=== PATIENT | female | born 1960 | race African-American/Black ===

== ENCOUNTER 2018-04-03 12:46 | Inpatient (IN) | payer MEDICAID, OTHER ==
[2018-04-03] MEDS ORDERED: Iopamidol 370 76% 50 ML VIAL FS ONE (13:01)
[2018-04-03 15:12] LABS: Bilirubin Negative (Negative); Blood, Urine Large (Negative); Clarity CLOUDY (Clear); Glucose, Urine (Dipstick) Negative (Negative); Leukocyte Moderate (Negative); Nitrite Negative (Negative); Protein, Urine (Dipstick) 100 mg/dL (Neg-Trace); Specific Gravity, Urine 1.014 (1.002-1.036)
[2018-04-03 15:14] LABS: Bacteria/HPF None Seen HPF (None Seen); Hyaline Casts/LPF 0-3 HYALINE CAST LPF (0-3 Hyaline); Pathc Cast-AUWi Flag 0.72 (0-2.49); RBC/HPF 21-50 HPF (0-3); WBC/HPF 21-50 HPF (0-3)
[2018-04-03 15:20] LABS: ALT (SGPT) 12 U/L (8-55); AST (SGOT) 43 U/L (5-34); Albumin 3.8 g/dL (3.5-5.0); Alkaline Phosphatase 88 U/L (40-150); Anion Gap 22 mmol/L (10-20); BUN (Urea Nitrogen) 31 mg/dL (9.8-20.1); Bilirubin, Total 1.4 mg/dL (0.2-1.2); Calc. Creatinine Clearance 0 mL/min (70-130); Calcium 11.6 mg/dL (7.8-10.44); Carbon Dioxide 22 mmol/L (22-29); Chloride 95 mmol/L (98-107); Estimated GFR-MDRD 46; Globulin 4.5 g/dL (2.4-3.5); Glucose 111 mg/dL (70-105); Potassium 5.2 mmol/L (3.5-5.1); Protein, Total 8.3 g/dL (6.0-8.3); Sodium 134 mmol/L (136-145)
[2018-04-03 15:25] LABS: Troponin I Less than 0.010 ng/mL (< 0.028)
[2018-04-03 15:40] LABS: Anisocytosis SLIGHT = 6-15 cells (100X) (0-5/hpf); Band 4 % (5-11); Eosinophils 1 % (0-10); Hemoglobin 10.9 g/dL (12.0-16.0); Lymphocytes 52 % (21-51); MDiff Complete? YES; Mean Corpuscular HGB CONC 35.6 g/dL (32.0-36.0); Mean Corpuscular Hemoglobin 28.9 pg (27.0-31.0); Mean Corpuscular Volume 81.1 fL (78.0-98.0); Mean Platelet Volume 14.7 fL (7.4-10.4); Monocytes 15 % (0-10); Neutrophil 21 % (42-75); PLT Morphology Comment Appears Decreased; Platelet Count 4 thou/uL (130-400); RBC Distribution Width 18.2 % (11.5-14.5); Reactive Lymphocytes 7 % (0-10); Red Blood Cell (RBC) Count 3.76 mill/uL (4.20-5.40); White Blood Cell (WBC) Count 18.7 thou/uL (4.8-10.8)
--- NOTE | 2018-04-03 17:13 | RAD ---
PORTABLE CHEST ONE VIEW: Date: 04-03-18 Time: 4:28 p.m. History: Cough, Chest pain, difficulty breathing. FINDINGS: Heart size normal. The lungs are expanded without lobar consolidation, pneumothoraces or pleural effu sions. IMPRESSION: No radiographic evidence of acute cardiopulmonary process. POS: [facility]
[2018-04-03 18:11] LABS: Fibrinogen 600 mg/dL (253-463)
[2018-04-03 18:12] LABS: INR-International Normal Ratio 1.2; PTT 30.4 SEC (22.9-36.1); Prothrombin Time 15.4 SEC (12.0-14.7)
[2018-04-03 18:13] LABS: D-Dimer Test 3.14 *mcg/mL (0.27-0.43)
[2018-04-03 18:15] LABS: Platelet Count 6 thou/uL (130-400)
[2018-04-03 18:30] LABS: FSP-Qualitative Normal (Normal)
[2018-04-03] MEDS ORDERED: Vancomycin HCl 1.5 GM in Sodium Chloride 0.9% 250 ML 300 ML IVPB SCH (22:15)
--- NOTE | 2018-04-03 22:33 | CT ---
CT ABDOMEN AND PELVIS WITHOUT IV CONTRAST: INDICATIONS: History of colorectal cancer and rectovaginal fistula. The patient has a history of an end colostomy . The patient reports tiredness, weakness, and continued bleeding. COMPARISON: None. FINDINGS: There is severe emphysema. There are calcified granuloma in the left lower lobe. There is subsegmen richie volume loss within the right middle lobe and lingula. Unopacified liver, spleen, pancreas, and right adrenal gland are unremarkable appearing. There is an indeterminate, 1.6 cm nodule within the left adrenal gland. Unopacified kidneys are unremarkable. There are moderate calcifications involving the abdominal aorta. There is an end colostomy within the left lower quadrant of the abdomen. There is no evidence of bow el obstruction. There is mild amount of retained stool within the colon. The small bowel is of norm al caliber. There is a fluid and gas collection seen within the presacral space, measuring approximately 3.8 x 6 cm. The visualized bladder is unremarkable. There is a peripherally calcified fat density mass within th e left hemipelvis, in the region of the left adnexa, which may reflect a dermoid cyst or possibly an area of fat necrosis. There is diffuse osteopenia. There is scattered degenerative and osteoarthritic change. IMPRESSION: 1. Fluid and gas collection seen within the presacral space. Findings may reflect a chronic fluid a nd gas collection from the patient's prior surgery and therapy or abscess. Comparison with prior microcomputer support specialist ss-sectional imaging may be helpful. Intravenous contrast enhanced examination may be helpful for im proved characterization. 2. Left lower quadrant end colostomy without evidence of obstruction. 3. Mild amount of retained stool within the colon. 4. Emphysema. 5. Findings of prior granulomatous disease. 6. Left adrenal nodule, incompletely characterized. Comparison with prior CTs may be helpful to doc ument chronicity. Alternatively, a follow-up CT of the abdomen utilizing adrenal mass protocol may b e helpful. 7. Peripherally calcified fat density mass at the left aspect of the hemipelvis may reflect a dermoi d cyst or possibly an area of fat necrosis from prior surgery or therapy. POS: [facility]
[2018-04-04] MEDS: Sodium Chloride 0.9% 1,000 ML IV SCH ×3 (00:03→14:41)
[2018-04-04] MEDS: Cefepime 1 GM in Sodium Chloride 0.9% 100 ML IVPB SCH ×3 (00:05→21:04)
[2018-04-04] MEDS ORDERED: Vancomycin HCl 1.5 GM in Sodium Chloride 0.9% 250 ML 300 ML IVPB SCH (00:15)
[2018-04-04 00:42] VITALS: BMI 33.7
[2018-04-04 00:50] LABS: Lactic Acid 2.1 mmol/L (0.5-2.2)
[2018-04-04] MEDS ORDERED: Famotidine 20 MG TAB PO SCH (01:00)
[2018-04-04] MEDS: Acetaminophen 325 MG TAB PO PRN ×2 (02:17→10:11)
[2018-04-04 05:20] LABS: Anion Gap 18 mmol/L (10-20); BUN (Urea Nitrogen) 33 mg/dL (9.8-20.1); Calc. Creatinine Clearance 79 mL/min (70-130); Calcium 10.7 mg/dL (7.8-10.44); Carbon Dioxide 21 mmol/L (22-29); Chloride 100 mmol/L (98-107); Estimated GFR-MDRD 58; Glucose 81 mg/dL (70-105); Potassium 4.1 mmol/L (3.5-5.1); Sodium 135 mmol/L (136-145)
[2018-04-04 05:41] LABS: Band 24 % (5-11); Differential Comment Plasma-like Cell(s); Eosinophils 3 % (0-10); Hemoglobin 8.6 g/dL (12.0-16.0); Lymphocytes 23 % (21-51); MDiff Complete? YES; Mean Corpuscular HGB CONC 35.4 g/dL (32.0-36.0); Mean Corpuscular Hemoglobin 28.7 pg (27.0-31.0); Mean Corpuscular Volume 81.2 fL (78.0-98.0); Mean Platelet Volume 11.1 fL (7.4-10.4); Metamyelocyte 2 % (0-0); Monocytes 11 % (0-10); Myelocyte 3 % (0-0); Neutrophil 30 % (42-75); Nucleated RBC 2 % (0); PLT Morphology Comment Appears Decreased; Platelet Count 36 thou/uL (130-400); RBC Distribution Width 17.7 % (11.5-14.5); Reactive Lymphocytes 4 % (0-10); Red Blood Cell (RBC) Count 3.01 mill/uL (4.20-5.40); Target Cells SLIGHT = 2-5 cells (100X) (0-1/hpf)
[2018-04-04] MEDS ORDERED: HYDROcodone/Acetaminophen 10/325 mg Tablet PO PRN ×2 (06:12→14:37)
[2018-04-04] MEDS: Famotidine 20 MG TAB PO SCH ×2 (10:08→21:03)
--- NOTE | 2018-04-04 13:23 | PDOC.PN ---
- Subjective Encounter Start Date: 04/04/18 Encounter Start Time: 07:40 Pt seen for followup re: sepsis. Says she hurts all over. - Objective Resuscitation Status: Resuscitation Status FULL:Full Resuscitation MAR Reviewed: Yes Vital Signs & Weight: Vital Signs (12 hours) Temp Pulse Resp BP Pulse Ox 04/04/18 12:00 99.2 F 92 20 102/58 L 94 L 04/04/18 08:00 99 F 95 18 113/58 L 86 L 04/04/18 04:00 92 16 112/58 L Weight Weight 203 lb Result Diagrams: 04/04/18 03:58 04/04/18 03:58 EKG Reviewed by me: Yes (Tele: NSR) Phys Exam - Physical Examination Obese HEENT: moist MMs, sclera anicteric, oral pharynx no lesions, 2+ tonsils Neck: no nodes, no JVD, supple, full ROM Respiratory: no wheezing, no rales, no rhonchi, clear to auscultation bilateral Cardiovascular: RRR, no rub S1, s2 Gastrointestinal: soft, non-tender, positive bowel sounds ostomy Neurological: moves all 4 limbs Psychiatric: normal affect, A&O x 3 Dx/Plan (1) Sepsis Code(s): A41.9 - SEPSIS, UNSPECIFIED ORGANISM Status: Acute Comment: continue IV antibiotics as below, await cultures (2) Thrombocytopenia Code(s): D69.6 - THROMBOCYTOPENIA, UNSPECIFIED Status: Acute Comment: ? secondary to sepsis. Consult oncology for opinion and help with management. (3) DAISY (acute kidney injury) Code(s): N17.9 - ACUTE KIDNEY FAILURE, UNSPECIFIED Status: Acute Comment: likely prerenal, improving (4) HTN (hypertension) Code(s): I10 - ESSENTIAL (PRIMARY) HYPERTENSION Status: Chronic Comment: controlled (5) Colorectal cancer Code(s): C19 - MALIGNANT NEOPLASM OF RECTOSIGMOID JUNCTION Status: Chronic - Plan * . Review of Systems - Review of Systems Constitutional: weakness. negative: fever, chills, sweats, malaise Respiratory: negative: Cough, Shortness of Breath, SOB with Excertion, Pleuritic Pain, Wheezing Cardiovascular: negative: chest pain, palpitations, orthopnea, paroxysmal nocturnal dyspnea, edema, light headedness Gastrointestinal: negative: Nausea, Vomiting, Abdominal Pain, Diarrhea, Constipation, Melena, Hematochezia Genitourinary: negative: Dysuria, Frequency, Incontinence, Hematuria, Retention Musculoskeletal: negative: Neck Pain, Shoulder Pain, Arm Pain, Back Pain, Hand Pain, Leg Pain, Foot Pain - Medications/Allergies Allergies/Adverse Reactions: Allergies Allergy/AdvReac Type Severity Reaction Status Date / Time fentanyl Allergy Verified 04/03/18 22:00 Medications: Current Medications Acetaminophen (Tylenol) 650 mg PO Q4H PRN PRN Reason: Headache/Fever or Pain Last Admin: 04/04/18 10:11 Dose: 650 mg Hydrocodone Bitart/Acetaminophen ([place] 10/325) 1 tab PO BID PRN PRN Reason: Pain >3 Last Admin: 04/04/18 06:15 Dose: 1 tab Famotidine (Pepcid) 20 mg PO BID DANIEL Last Admin: 04/04/18 10:08 Dose: 20 mg Cefepime HCl 1 gm/ Sodium (Chloride) 100 mls @ 200 mls/hr IVPB 1000,2200 [facility] Last Admin: 04/04/18 10:00 Dose: 100 mls Sodium Chloride (Normal Saline 0.9%) 1,000 mls @ 100 mls/hr IV .Q10H [facility] Last Admin: 04/04/18 05:27 Dose: 1,000 mls Vancomycin HCl 1.5 gm/ Sodium (Chloride) 300 mls @ 200 mls/hr IVPB 2300 DANIEL Ondansetron HCl (Zofran) 4 mg IVP Q6H PRN PRN Reason: Nausea/Vomiting
--- NOTE | 2018-04-04 13:55 | HP ---
TIME OF EVALUATION: 8:00 p.m. PRIMARY CARE PHYSICIAN: No PCP. CODE STATUS: FULL CODE. CHIEF COMPLAINT: Generalized pain and vaginal bleeding. HISTORY OF PRESENT ILLNESS: A 58-year-old female patient with past medical history of hypertension, malignancy, colon cancer, history of colostomy, colon resection, colostomy problems, also having some rectovaginal fistula that has been bleeding for 2 years. Patient has reported having this pain has been going on for since February, has talked to his oncologist about this problem, has received pain medi cations, with no improvement. The patient reported having also significant bleeding in the past few days. CBC was done, the patient has a platelet count of 4000, it has been discussed by the ER physic bia with the oncologist and the plan is to give platelets. Patient also reported having fever, tachy cardia, and urine was positive, symptoms were reported as moderate. The pain was reported as severe. She will receive treatment also for UTI. REVIEW OF SYSTEMS: Constitutional: The patient had fever, chills, generalized weakness. Respirator y: No cough, sputum production, or shortness of breath. Cardiovascular: No chest pain, palpitation s, or shortness of breath. Gastrointestinal: No nausea, no vomiting, diarrhea, or abdominal pain. Central Nervous Systems: No dizziness, headache, or feeling lightheaded. Genitourinary: No burning on urination. Extremities: No leg swelling. All other systems were reviewed and negative except f or the findings mentioned above. PAST MEDICAL HISTORY: Positive for hypertension, colon cancer. PAST SURGICAL HISTORY: Colostomy, colon resection, surgical history of . PSYCHIATRIC HISTORY: Anxiety. SOCIAL HISTORY: Patient uses tobacco. She smokes cigarettes 1 pack per day. FAMILY HISTORY: Reviewed and noncontributory. KNOWN ALLERGIES: FENTANYL. REPORTED MEDICATIONS: Lisinopril 20 mg once a day. PHYSICAL EXAMINATION: VITAL SIGNS: Heart rate 111, O2 saturation 95 on room air, blood pressure 107/70, temperature 98.5. Pain was 10/10. GENERAL APPEARANCE: Patient is alert, oriented, in no any acute distress. HEAD AND EYES: Normal conjunctivae. Moist oral mucosa. Anicteric. NECK: No JVD. RESPIRATORY: Bilateral air entry. No rales, no wheezing. Symmetric expansion. CARDIOVASCULAR: Patient is tachycardic. No murmurs, no gallop. EXTREMITIES: No edema. ABDOMEN: Soft, normal bowel sounds. MUSCULOSKELETAL: Baseline range of motion and strength. No tenderness. The patient does have gener alized weakness. SKIN: Warm and dry. No pallor, no rash, no redness. NEUROLOGIC: Baseline sensorium. No evidence of any new focal weakness. Baseline speech. Cranial n erve seems to be intact. PSYCHIATRIC: The patient is in a good mood. No anxiety. Oriented. Optimal judgment. IMAGING: EKG was reviewed. The patient has sinus tachycardia with low voltage QRS, ventricular rate 103, TN 128, QRS 74, QT corrected 440. Abdominal pelvic CT, fluid and gas collection seen within th e presacral space, findings may reflect a chronic fluid and gas collection from the patient from surg martinez and therapy or abscess. Comparison with prior cross-sectional imaging may be helpful. Intraveno us contrast inhaled examination may be helpful for improved catheterization. Left lower quadrant and colostomy without evidence of obstruction, mild amount of retained stool within the colon, emphysema and finding of prior granulomatosis disease, left adrenal nodule incompletely characterized, compari son with prior CTs and be helpful to document chronicity. Alternatively, a followup CT of the abdome n utilizing adrenal mass protocol may be helpful. Peripherally, calcified fat density mass of the le ft aspect of the imipenem. This may reflect a dermoid cyst or possibly an area of fat necrosis from prior surgery. Chest x-ray was reviewed. No radiographic evidence of acute cardiopulmonary process. LABORATORY DATA: White count 18.7, RBC 3.76, hemoglobin 10.9, platelet count 6000, neutrophils 21, b ands 4. PT 15.4, INR 1.2. D-dimer 3.14, sodium 134, potassium 5.2, chloride 95, anion gap 22, BUN 3 1, creatinine 1.20, glucose 111. Lactic acid initially 2.4, now 2.1, calcium 11.6, total bilirubin 1 .4, AST 43, globulin 4.5. UA was reviewed, white count 21 to 50. ASSESSMENT AND PLAN: The patient was placed in the hospital following medical problems: 1. Possible sepsis. The patient has leukocytosis, tachycardia, possible source could be presacral a bscess versus urine. The patient has been started on broad spectrum antibiotics. Will adjust as pat ient has deep venous thrombosis, hydration. 2. Possible presacral abscess. We will consult Surgery for neuro opinion regarding any need for fur ther recommendations. 3. Urinary tract infection, positive UA, cultures, treatment as above. 4. Thrombocytopenia. Oncology is following this case with recommendation given to the ER to give pl atelet transfusion. We will monitor platelet level. We will treat accordingly. 5. Chronic normocytic anemia. The patient has a history of vaginal bleeding for the past 2 years. We will monitor. We will adjust treatment as needed. 6. Hyponatremia. Sodium 134, this is mild. No need for any acute intervention at this time. 7. Hyperkalemia, 5.2, this is minimal. No need for any acute intervention at this point. We will m onitor and treat accordingly. 8. Acute kidney injury. We will have the previous creatinine to compare, BUN is 31, creatinine is 1 .2, GFR is 46. We will hydrate. We will monitor kidney function. 9. Lactic acidosis initially 2.4 came down to 2.1, likely secondary to sepsis. We will treat the un derlying condition. 10. Deep vein thrombosis prophylaxis.
[2018-04-04] MEDS ORDERED: Morphine 4 MG/ML VIAL SLOW IVP PRN (14:37)
--- NOTE | 2018-04-04 14:39 | PDOC.GSPN ---
Surgery Progress Note: Subj - Subjective Narrative: Well known to me now presents with blood from vagina, increased perineal drainage and body aches. Platelets 4 on presentation. Denies blood in bag, hematuria. Surgery Progress Note: Obj - Vital signs Vital signs: Vital Signs - Most Recent Temp Pulse Resp BP Pulse Ox 99.2 F 92 20 102/58 L 94 L 04/04/18 12:00 04/04/18 12:00 04/04/18 12:00 04/04/18 12:00 04/04/18 12:00 - Physical Exam General: no distress Cardiovascular: regular rate and rhythm Respiratory: clear to auscultation Abdomen: soft, non tender Surgery Progress Note: Results - Labs Result Diagrams: 04/04/18 03:58 04/04/18 03:58 Lab results: Laboratory Results - last 24 hr 04/04/18 04/04/18 03:58 03:58 WBC 12.0 H RBC 3.01 L Hgb 8.6 L Hct 24.4 L MCV 81.2 MCH 28.7 MCHC 35.4 RDW 17.7 H Plt Count 36 L MPV 11.1 H Neutrophils % (Manual) 30 L Band Neuts % (Manual) 24 H Lymphocytes % (Manual) 23 Reactive Lymphs % 4 Monocytes % (Manual) 11 H Eosinophils % (Manual) 3 Metamyelocytes % (Man) 2 H Myelocytes % 3 H Neutrophils # Not Reportable Nucleated RBCs # (Man) 2 H Differential Comment Plasma-like Cell(s) Plt Morphology Comment Appears Decreased L Target Cells SLIGHT = 2-5 cells Sodium 135 L Potassium 4.1 Chloride 100 Carbon Dioxide 21 L Anion Gap 18 BUN 33 H Creatinine 1.16 H Estimated GFR (MDRD) 58 Glucose 81 Calcium 10.7 H Surgery Progress Note: A/P - Problem (1) Rectal cancer Current Visit: Yes Code(s): C20 - MALIGNANT NEOPLASM OF RECTUM Status: Acute Assessment and Plan: s/p neoadjuvant chemo/radiation followed by APR for locally invasive rectal cancer. Pathologic staging T3,N2,M0 (2) Thrombocytopenia Current Visit: Yes Code(s): D69.6 - THROMBOCYTOPENIA, UNSPECIFIED Status: Acute Assessment and Plan: Secondary to underlying infection? (3) Pelvic fluid collection Current Visit: Yes Code(s): R18.8 - OTHER ASCITES Status: Acute Assessment and Plan: Could be necrotic scar tissue and source of infection - Plan Plan: Will need percutaneous drainage attempted for this pelvic fluid collection. Not going to be able to do it until platelet count increased. Need oncology input on next step for increased CEA level
[2018-04-04] MEDS: HYDROcodone/Acetaminophen 10/325 mg Tablet PO PRN ×2 (15:57→21:02)
[2018-04-04] MEDS: Vancomycin HCl 1.5 GM in Sodium Chloride 0.9% 250 ML 300 ML IVPB SCH (22:22)
--- NOTE | 2018-04-04 22:29 | CON ---
DATE OF CONSULTATION: 04/04/2018 REASON FOR CONSULTATION: Thrombocytopenia. HISTORY OF PRESENT ILLNESS: Ms. Hernandez is a 58-year-old female with a past history of rectal carcinoma, status post neoadjuvant chemotherapy and radiation with resection who presented to the emergency room yesterday with vaginal bleeding. She had a platelet count of 4,000. She was transfused a unit of platelets with improvement in platelets to 36,000. The patient was diagnosed with a T3 N2 M0 adenocarcinoma of the rectum in 2014. 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 She underwent neoadjuvant chemotherapy with the radiation. She had an abdominal peritoneal resection in 12/2015. Final pathology revealed a 5.6 cm residual focus of invasive adenocarcinoma invading the subserosal adipose tissue. She had 7-14 pertinent positive lymph nodes for regional metastatic disease in 02/2016. She was offered a postoperative chemotherapy which she declined. She was lost to follow up and was not seen again until 10/2017. She was referred to Dr. Arguelles for colonoscopy. She had a CEA performed in October which was elevated at 25.65. Dr. Weir contacted the patient by telephone, but was unable to get a hold of the patient. Multiple messages were left on voicemail regarding her elevated CEA. She has not returned to our clinic since October. On admission, she had an abdominal and pelvis CT without contrast. There was a fluid and gas collection seen in the presacral space, measuring approximately 3.8 x 6 cm. Her CBC this morning showed a white count of 12.0, hemoglobin of 8.6 and a platelet count of 36,000 post-transfusion. She had 30% neutrophils, 24% bands, 23% lymphocytes. She also had metamyelocytes, myelocytes and nucleated RBCs on her differential as well as plasma like cells worrisome for a bone marrow dysfunction. Currently, she is complaining of generalized pain. She was recently medicated with morphine, which has not taken in fact. She states she has felt poorly over the last 2 weeks and has lost approximately 5 pounds during that time. PAST MEDICAL HISTORY: 1. Adenocarcinoma of the rectum. 2. 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 3. Hypertension. PAST SURGICAL HISTORY: 1. AP resection with colostomy. 2. . ALLERGIES: FENTANYL. HOME MEDICATIONS: 1. Chlorthalidone 12.5 mg daily. 2. Helen p.r.n. 3. Lisinopril 20 mg daily. FAMILY HISTORY: Mother of lung cancer. SOCIAL HISTORY: She is , has 3 children, lives with her brother. Current everyday smoker. No illicit drug use or alcohol. REVIEW OF SYSTEMS: A 12 point review of systems is negative except for noted in HPI. PHYSICAL EXAMINATION: VITAL SIGNS: Temperature 99.2, pulse is 92, respiratory rate 20, BP is 102/58, she is 94% on 3 liters. GENERAL: This is a well-developed, well-nourished female in mild pain. HEENT: Normocephalic, atraumatic. Pupils are equal and reactive to light. NECK: Supple. CARDIOVASCULAR: Regular rate and rhythm. LUNGS: Clear. ABDOMEN: Soft, mildly tender to palpation in the lower quadrants. Bowel sounds are positive. EXTREMITIES: No clubbing, cyanosis or edema. SKIN: No rash. HEMATOLOGIC: She has vaginal bleeding. NEUROLOGIC: Nonfocal. PSYCHIATRIC: Patient is alert and oriented and appropriate. PERTINENT LABORATORY DATA AND IMAGING DATA: Current WBCs are 12, hemoglobin 8.6 , hematocrit 24.4, platelet count 36,000, 30% neutrophils, 24% bands, 23% lymphocytes, 11% monocytes. She has got 3% metamyelocytes, 3% myelocytes, 2 nucleated red blood cells and plasma like cells. PT is 15.4, INR is 1.2, PTT is 30.4. Sodium is 135, potassium 4.1, chloride 100, CO2 is 21, BUN is 33, creatinine 1.16, lactic acid is 2.1, calcium 10.7, total bilirubin is 1.4, AST is 43, ALT is 12, alkaline phosphatase is 88, serum total protein is 8.3, albumin 3.8, globulin 4.5, CEA is 27.03. Urine is negative for bacteria. Radiology per HPI. ASSESSMENT: 1. Acute thrombocytopenia. 2. Pelvic fluid collection infection versus malignancy. 3. History of rectal cancer. 4. Acute on chronic kidney disease. 5. Abnormal differential on his CBC. DISCUSSION: The patient's thrombocytopenia and abnormal cells on differential were concerning for bone marrow process. Discussion with Dr. Weir. Plan is to have a bone marrow biopsy tomorrow. We will also get a serum protein electrophoresis and immunoglobulins. Dr. Contreras has seen the patient and plans a pelvic fluid drainage once platelets have normalized. The patient is being administered pain medication for her discomfort and antibiotics for possible infection. We will continue to follow her hospital course closely and further recommendations will be based on results of current treatments. TREY
[2018-04-05] MEDS: HYDROcodone/Acetaminophen 10/325 mg Tablet PO PRN ×4 (04:55→21:32)
[2018-04-05] MEDS: Sodium Chloride 0.9% 1,000 ML IV SCH ×2 (04:59→16:59)
[2018-04-05 05:36] LABS: INR-International Normal Ratio 1.2; Prothrombin Time 15.6 SEC (12.0-14.7)
[2018-04-05 05:37] LABS: PTT 31.5 SEC (22.9-36.1)
[2018-04-05 08:00] LABS: Hemoglobin 8.7 g/dL (12.0-16.0); Mean Corpuscular HGB CONC 35.2 g/dL (32.0-36.0); Mean Corpuscular Hemoglobin 28.9 pg (27.0-31.0); Mean Corpuscular Volume 82.2 fL (78.0-98.0); Mean Platelet Volume 12.3 fL (7.4-10.4); Platelet Count 22 thou/uL (130-400); RBC Distribution Width 18.4 % (11.5-14.5); Red Blood Cell (RBC) Count 3.01 mill/uL (4.20-5.40); White Blood Cell (WBC) Count 12.3 thou/uL (4.8-10.8)
[2018-04-05 08:37] LABS: Anion Gap 16 mmol/L (10-20); BUN (Urea Nitrogen) 26 mg/dL (9.8-20.1); Calc. Creatinine Clearance 110 mL/min (70-130); Calcium 10.1 mg/dL (7.8-10.44); Carbon Dioxide 22 mmol/L (22-29); Chloride 104 mmol/L (98-107); Estimated GFR-MDRD 78; Glucose 72 mg/dL (70-105); Potassium 4.6 mmol/L (3.5-5.1); Sodium 137 mmol/L (136-145)
[2018-04-05 08:47] LABS: Band 24 % (5-11); Bite Cells SLIGHT = 2-5 cells (100X) (0-1/hpf); Differential Comment Plasma-cytoid Cells; Lymphocytes 29 % (21-51); MDiff Complete? YES; Monocytes 10 % (0-10); Myelocyte 2 % (0-0); Neutrophil 20 % (42-75); Polychromasia SLIGHT = 2-3 cells (100X) (0-2/hpf); Reflex for Review?? YES; Target Cells SLIGHT = 2-5 cells (100X) (0-1/hpf)
[2018-04-05] MEDS: Famotidine 20 MG TAB PO SCH ×2 (09:02→20:38)
[2018-04-05] MEDS: Cefepime 1 GM in Sodium Chloride 0.9% 100 ML IVPB SCH ×2 (09:05→21:34)
[2018-04-05] MEDS ORDERED: Fentanyl 100 MCG/2 ML VIAL ONE (09:16)
[2018-04-05] MEDS ORDERED: Midazolam HCl 2 mg/2 ml Vial ONE (09:16)
--- NOTE | 2018-04-05 12:36 | RAD ---
ADULT BONE SURVEY: INDICATIONS: Question multiple myeloma. TECHNIQUE: A total of 23 images were obtained. FINDINGS: Images of the cervical, thoracic, and lumbar spine obtained. The vertebrae all maintain normal heigh t and alignment. No evidence of compression deformity. No lytic or blastic process. No punched out or lytic lesions seen. Views of the calvarium show no punched out or lytic lesion. The patient is edentulous. AP pelvis shows no focal lytic or punched out lesion. The hips are unremarkable. The lower extremities show no focal lucent or lytic lesions. The upper extremities show no evidence of focal lucent or lytic lesions. IMPRESSION: No plain film evidence of multiple myeloma identified. POS: [facility]
--- NOTE | 2018-04-05 13:58 | CT ---
CT GUIDED BONE MARROW BIOPSY: Date: 04/05/18 HISTORY: Thrombocytopenia. CONSCIOUS SEDATION: 1 mg Versed, IV. FINDINGS: After explaining the procedure and answering all questions, the patient was placed on the CT table in prone position. Sterile technique, buffered local anesthesia, conscious sedation, CT guidance, and a left posterior approach were used to carefully advance a 12 gauge bone biopsy needle to the level of the posterior cortex left iliac bone. Position was confirmed with CT. Biopsy needle was carefully en gaged through the cortex, and a total volume of 8 mL blood was aspirated and submitted to pathology f or evaluation. Bone marrow core was then obtained and submitted to pathology. Postprocedure imaging shows no evidenc e of complication. The patient tolerated the procedure well and was returned in unchanged condition. IMPRESSION: Technically successful CT guided bone marrow biopsy. Pathology is pending. POS: [facility]
--- NOTE | 2018-04-05 13:59 | PDOC.PN ---
- Subjective Encounter Start Date: 04/05/18 Encounter Start Time: 08:00 Pt seen for followup re: thrombocytopenia. Complains of pain all over body. No nausea or vomiting. - Objective Resuscitation Status: Resuscitation Status FULL:Full Resuscitation MAR Reviewed: Yes Vital Signs & Weight: Vital Signs (12 hours) Temp Pulse Resp BP BP Pulse Ox 04/05/18 12:00 98.6 F 110 H 18 129/86 89 L 04/05/18 08:00 98.1 F 91 20 109/58 L 91 L 04/05/18 04:00 98.9 F 103 H 18 128/59 L 99 Weight Weight 220 lb I&O: 04/04/18 04/05/18 04/06/18 06:59 06:59 06:59 Intake Total 3784 Balance 3784 Result Diagrams: 04/05/18 05:37 04/05/18 05:37 EKG Reviewed by me: Yes (Tele: NSR) Phys Exam - Physical Examination Obesity HEENT: moist MMs, sclera anicteric, oral pharynx no lesions, 2+ tonsils Neck: no nodes, no JVD, supple, full ROM Respiratory: no wheezing, no rales, no rhonchi, clear to auscultation bilateral Cardiovascular: RRR, no rub S1, S2 Gastrointestinal: soft, non-tender, no distention, positive bowel sounds Neurological: moves all 4 limbs Psychiatric: normal affect Dx/Plan (1) Sepsis Code(s): A41.9 - SEPSIS, UNSPECIFIED ORGANISM Status: Acute Comment: continue IV cefepime and vancomycin, await cultures (2) Thrombocytopenia Code(s): D69.6 - THROMBOCYTOPENIA, UNSPECIFIED Status: Acute Comment: ? secondary to sepsis. Plt 22k today (3) Pelvic fluid collection Code(s): R18.8 - OTHER ASCITES Status: Acute Comment: appreciate surgery input, continue antibiotics (4) HTN (hypertension) Code(s): I10 - ESSENTIAL (PRIMARY) HYPERTENSION Status: Chronic Comment: controlled, resume home medications (5) Colorectal cancer Code(s): C19 - MALIGNANT NEOPLASM OF RECTOSIGMOID JUNCTION Status: Chronic (6) DAISY (acute kidney injury) Code(s): N17.9 - ACUTE KIDNEY FAILURE, UNSPECIFIED Status: Resolved - Plan * . Lab called to report plasmacytoid cells in peripheral smear, no rouleaux formation. Await bone marrow biopsy. Review of Systems - Review of Systems Respiratory: negative: Cough, Shortness of Breath, Hemoptysis, SOB with Excertion, Pleuritic Pain, Wheezing Cardiovascular: negative: chest pain, palpitations, orthopnea, paroxysmal nocturnal dyspnea, edema, light headedness Gastrointestinal: negative: Nausea, Vomiting, Abdominal Pain, Diarrhea, Constipation, Melena, Hematochezia Genitourinary: negative: Dysuria, Frequency, Incontinence, Hematuria, Retention Musculoskeletal: negative: Neck Pain, Shoulder Pain, Arm Pain, Back Pain, Hand Pain, Leg Pain, Foot Pain - Medications/Allergies Allergies/Adverse Reactions: Allergies Allergy/AdvReac Type Severity Reaction Status Date / Time fentanyl Allergy Verified 04/03/18 22:00 Medications: Current Medications Acetaminophen (Tylenol) 650 mg PO Q4H PRN PRN Reason: Headache/Fever or Pain Last Admin: 04/04/18 10:11 Dose: 650 mg Hydrocodone Bitart/Acetaminophen ([place] 10/325) 1 tab PO Q4H PRN PRN Reason: Moderate Pain (4-6) Hydrocodone Bitart/Acetaminophen ([place] 10/325) 2 tab PO Q4H PRN PRN Reason: Severe Pain (7-10) Last Admin: 04/05/18 12:28 Dose: 2 tab Calcium Carbonate (Tums) 1,000 mg PO Q4H PRN PRN Reason: HEARTBURN Famotidine (Pepcid) 20 mg PO BID [facility] Last Admin: 04/05/18 09:02 Dose: Not Given Cefepime HCl 1 gm/ Sodium (Chloride) 100 mls @ 200 mls/hr IVPB 1000,2200 [facility] Last Admin: 04/05/18 09:05 Dose: 100 mls Sodium Chloride (Normal Saline 0.9%) 1,000 mls @ 100 mls/hr IV .Q10H [facility] Last Admin: 04/05/18 04:59 Dose: 1,000 mls Vancomycin HCl 1.5 gm/ Sodium (Chloride) 300 mls @ 200 mls/hr IVPB 2300 [facility] Last Admin: 04/04/18 22:22 Dose: 300 mls Morphine Sulfate (Morphine) 2 mg SLOW IVP Q4H PRN PRN Reason: Mild-Moderate Pain (1-5) Last Admin: 04/04/18 14:42 Dose: 2 mg Morphine Sulfate (Morphine) 4 mg SLOW IVP Q4H PRN PRN Reason: Moderate to Severe Pain (6-10) Ondansetron HCl (Zofran) 4 mg IVP Q6H PRN PRN Reason: Nausea/Vomiting Sodium Chloride (Flush - Normal Saline) 10 ml IVF Q12HR [facility] Last Admin: 04/05/18 09:03 Dose: 10 ml Sodium Chloride (Flush - Normal Saline) 10 ml IVF PRN PRN PRN Reason: Saline Flush
[2018-04-05] MEDS: Vancomycin HCl 1.5 GM in Sodium Chloride 0.9% 250 ML 300 ML IVPB SCH (23:50)
[2018-04-06] MEDS: HYDROcodone/Acetaminophen 10/325 mg Tablet PO PRN ×5 (02:25→23:45)
[2018-04-06 05:38] LABS: Hemoglobin 7.7 g/dL (12.0-16.0); Mean Corpuscular HGB CONC 35.1 g/dL (32.0-36.0); Mean Corpuscular Hemoglobin 28.4 pg (27.0-31.0); Mean Corpuscular Volume 81.1 fL (78.0-98.0); Mean Platelet Volume 13.5 fL (7.4-10.4); Platelet Count 13 thou/uL (130-400); White Blood Cell (WBC) Count 9.3 thou/uL (4.8-10.8)
[2018-04-06 05:43] LABS: Anion Gap 16 mmol/L (10-20); BUN (Urea Nitrogen) 21 mg/dL (9.8-20.1); Calc. Creatinine Clearance 116 mL/min (70-130); Calcium 9.7 mg/dL (7.8-10.44); Carbon Dioxide 22 mmol/L (22-29); Chloride 103 mmol/L (98-107); Estimated GFR-MDRD 84; Glucose 81 mg/dL (70-105); Potassium 4.2 mmol/L (3.5-5.1); Sodium 137 mmol/L (136-145)
[2018-04-06 06:45] LABS: Band 13 % (5-11); Eosinophils 1 % (0-10); Lymphocytes 37 % (21-51); MDiff Complete? YES; Metamyelocyte 4 % (0-0); Monocytes 8 % (0-10); Myelocyte 3 % (0-0); Neutrophil 32 % (42-75); PLT Morphology Comment Appears Decreased
[2018-04-06] MEDS: Sodium Chloride 0.9% 1,000 ML IV SCH (08:45)
[2018-04-06] MEDS: Ondansetron HCl/PF 4 MG/2 ML Vial IVP PRN ×2 (08:46→21:38)
[2018-04-06] MEDS: Famotidine 20 MG TAB PO SCH ×2 (08:49→21:33)
[2018-04-06 09:22] LABS: A/G Ratio 0.8 (0.7-1.7); Albumin 3.2 g/dL (2.9-4.4); Alpha 1 0.5 g/dL (0.0-0.4); Alpha 2 0.9 g/dL (0.4-1.0); Beta 2.1 g/dL (0.7-1.3); Gamma 0.9 g/dL (0.4-1.8); Globulin, Total 4.2 g/dL (2.2-3.9); M-Spike 0.5 g/dL (Not Observed)
[2018-04-06] MEDS: Cefepime 1 GM in Sodium Chloride 0.9% 100 ML IVPB SCH ×2 (09:28→21:35)
[2018-04-06] MEDS: Vancomycin HCl 1.5 GM in Sodium Chloride 0.9% 250 ML 300 ML IVPB SCH ×2 (10:33→23:15)
--- NOTE | 2018-04-06 18:54 | PDOC.PN ---
- Subjective Encounter Start Date: 04/06/18 Encounter Start Time: 08:00 Pt seen for followup re: sepsis. Denies chest pain, feels weak. No nausea or vomiting. No diarrhea. - Objective Resuscitation Status: Resuscitation Status FULL:Full Resuscitation Vital Signs & Weight: Vital Signs (12 hours) Temp Pulse Pulse Pulse Pulse Resp BP 04/06/18 15:24 98.8 F 96 20 04/06/18 14:16 98.2 F 104 H 20 04/06/18 13:57 98.6 F 110 H 20 04/06/18 12:41 97.7 F 80 18 04/06/18 11:05 101 H 101 H 128/62 04/06/18 08:00 97.7 F 80 18 BP BP BP Pulse Ox 04/06/18 15:24 111/54 L 04/06/18 14:16 136/62 04/06/18 13:57 143/65 H 04/06/18 12:41 95 04/06/18 11:05 124/58 L 04/06/18 08:00 137/63 94 L Weight Weight 218 lb I&O: 04/05/18 04/06/18 04/07/18 06:59 06:59 06:59 Intake Total 3784 1730 1350 Output Total 500 Balance 3784 1730 850 Result Diagrams: 04/06/18 05:09 04/06/18 05:09 Phys Exam - Physical Examination Obese HEENT: moist MMs, sclera anicteric, oral pharynx no lesions, 2+ tonsils Neck: no nodes, no JVD, supple, full ROM Respiratory: no wheezing, no rales, no rhonchi, clear to auscultation bilateral Cardiovascular: RRR, no rub S1, s2 Gastrointestinal: soft, non-tender, no distention, positive bowel sounds Neurological: moves all 4 limbs Psychiatric: normal affect, A&O x 3 Dx/Plan (1) Sepsis Code(s): A41.9 - SEPSIS, UNSPECIFIED ORGANISM Status: Acute Comment: on IV cefepime and vancomycin, cultures pending (2) Thrombocytopenia Code(s): D69.6 - THROMBOCYTOPENIA, UNSPECIFIED Status: Acute Comment: ? secondary to sepsis. Plt still low, will defer to oncology re: plt transfusion (3) Pelvic fluid collection Code(s): R18.8 - OTHER ASCITES Status: Acute Comment: continue antibiotics (4) HTN (hypertension) Code(s): I10 - ESSENTIAL (PRIMARY) HYPERTENSION Status: Chronic Comment: controlled (5) Colorectal cancer Code(s): C19 - MALIGNANT NEOPLASM OF RECTOSIGMOID JUNCTION Status: Chronic (6) DAISY (acute kidney injury) Code(s): N17.9 - ACUTE KIDNEY FAILURE, UNSPECIFIED Status: Resolved - Plan * . Review of Systems - Review of Systems Constitutional: weakness. negative: fever, chills, sweats, malaise Respiratory: negative: Cough, Shortness of Breath, SOB with Excertion, Pleuritic Pain Cardiovascular: negative: chest pain, palpitations, orthopnea, paroxysmal nocturnal dyspnea Gastrointestinal: negative: Nausea, Vomiting, Abdominal Pain, Diarrhea, Constipation, Melena, Hematochezia Genitourinary: negative: Dysuria, Frequency, Incontinence, Hematuria, Retention Neurological: Weakness - Medications/Allergies Allergies/Adverse Reactions: Allergies Allergy/AdvReac Type Severity Reaction Status Date / Time fentanyl Allergy Verified 04/03/18 22:00 Medications: Current Medications Acetaminophen (Tylenol) 650 mg PO Q4H PRN PRN Reason: Headache/Fever or Pain Last Admin: 04/04/18 10:11 Dose: 650 mg Hydrocodone Bitart/Acetaminophen ([place] 10/325) 1 tab PO Q4H PRN PRN Reason: Moderate Pain (4-6) Hydrocodone Bitart/Acetaminophen ([place] 10/325) 2 tab PO Q4H PRN PRN Reason: Severe Pain (7-10) Last Admin: 04/06/18 14:00 Dose: 2 tab Calcium Carbonate (Tums) 1,000 mg PO Q4H PRN PRN Reason: HEARTBURN Famotidine (Pepcid) 20 mg PO BID [facility] Last Admin: 04/06/18 08:49 Dose: 20 mg Cefepime HCl 1 gm/ Sodium (Chloride) 100 mls @ 200 mls/hr IVPB 1000,2200 [facility] Last Admin: 04/06/18 09:28 Dose: 100 mls Sodium Chloride (Normal Saline 0.9%) 1,000 mls @ 100 mls/hr IV .Q10H [facility] Last Admin: 04/06/18 08:45 Dose: 1,000 mls Vancomycin HCl 1.5 gm/ Sodium (Chloride) 300 mls @ 200 mls/hr IVPB 1100,2300 [facility] Last Admin: 04/06/18 10:33 Dose: 300 mls Morphine Sulfate (Morphine) 2 mg SLOW IVP Q4H PRN PRN Reason: Mild-Moderate Pain (1-5) Last Admin: 04/04/18 14:42 Dose: 2 mg Morphine Sulfate (Morphine) 4 mg SLOW IVP Q4H PRN PRN Reason: Moderate to Severe Pain (6-10) Ondansetron HCl (Zofran) 4 mg IVP Q6H PRN PRN Reason: Nausea/Vomiting Last Admin: 04/06/18 08:46 Dose: 4 mg Sodium Chloride (Flush - Normal Saline) 10 ml IVF Q12HR [facility] Last Admin: 04/06/18 08:49 Dose: 10 ml Sodium Chloride (Flush - Normal Saline) 10 ml IVF PRN PRN PRN Reason: Saline Flush
[2018-04-07] MEDS: Sodium Chloride 0.9% 1,000 ML IV SCH ×2 (01:30→17:52)
[2018-04-07] MEDS: HYDROcodone/Acetaminophen 10/325 mg Tablet PO PRN ×5 (03:49→21:57)
[2018-04-07 04:58] LABS: Anion Gap 14 mmol/L (10-20); BUN (Urea Nitrogen) 17 mg/dL (9.8-20.1); Calc. Creatinine Clearance 110 mL/min (70-130); Calcium 9.8 mg/dL (7.8-10.44); Carbon Dioxide 22 mmol/L (22-29); Chloride 104 mmol/L (98-107); Estimated GFR-MDRD 79; Glucose 82 mg/dL (70-105); Potassium 3.9 mmol/L (3.5-5.1); Sodium 136 mmol/L (136-145)
[2018-04-07] MEDS: Calcium Carbonate 500 MG ChewTAB PO PRN ×2 (06:30→17:58)
[2018-04-07 06:40] LABS: Band 14 % (5-11); Differential Comment Immature Cell(s); Hemoglobin 7.6 g/dL (12.0-16.0); Hypochromia SLIGHT = 6-15 cells (100X) (0-5/hpf); Lymphocytes 28 % (21-51); MDiff Complete? YES; Mean Corpuscular HGB CONC 35.4 g/dL (32.0-36.0); Mean Corpuscular Hemoglobin 28.7 pg (27.0-31.0); Mean Corpuscular Volume 81.2 fL (78.0-98.0); Metamyelocyte 1 % (0-0); Monocytes 5 % (0-10); Neutrophil 49 % (42-75); PLT Morphology Comment Appears Decreased; Platelet Count 38 thou/uL (130-400); RBC Distribution Width 18.3 % (11.5-14.5); Red Blood Cell (RBC) Count 2.64 mill/uL (4.20-5.40); White Blood Cell (WBC) Count 8.2 thou/uL (4.8-10.8)
[2018-04-07] MEDS: Famotidine 20 MG TAB PO SCH ×2 (07:56→21:59)
[2018-04-07] MEDS: Cefepime 1 GM in Sodium Chloride 0.9% 100 ML IVPB SCH ×2 (10:08→22:01)
[2018-04-07 10:37] LABS: Vancomycin, Trough 24.4 ug/mL
[2018-04-07] MEDS: Vancomycin HCl 1.5 GM in Sodium Chloride 0.9% 250 ML 300 ML IVPB SCH (10:57)
[2018-04-07] MEDS: Docusate 100 MG CAP PO SCH ×3 (11:05→22:00)
[2018-04-07] MEDS: Vancomycin HCl 1.25 GM in Sodium Chloride 0.9% 250 ML 250 ML IVPB SCH ×2 (11:54→22:01)
--- NOTE | 2018-04-07 15:34 | PDOC.PN ---
- Subjective Encounter Start Date: 04/07/18 Encounter Start Time: 07:20 Pt seenfor followup re: sepsis. denies chest pain, shortness of breath. Reports weakness. - Objective Resuscitation Status: Resuscitation Status FULL:Full Resuscitation MAR Reviewed: Yes Vital Signs & Weight: Vital Signs (12 hours) Temp Pulse Resp BP BP BP Pulse Ox 04/07/18 11:37 97.6 F 93 16 128/59 L 96 04/07/18 10:06 116/55 L 04/07/18 08:00 98.5 F 88 16 91 L 04/07/18 07:48 98.5 F 88 16 116/55 L 90 L 04/07/18 06:45 95 04/07/18 03:40 98.4 F 95 16 124/62 91 L Weight Weight 218 lb I&O: 04/06/18 04/07/18 04/08/18 06:59 06:59 06:59 Intake Total 1730 1710 Output Total 500 Balance 1730 1210 Result Diagrams: 04/07/18 04:27 04/07/18 04:27 Additional Labs: labs reviewed by me Phys Exam - Physical Examination Obese HEENT: moist MMs, sclera anicteric, oral pharynx no lesions, 2+ tonsils Neck: no nodes, no JVD, supple, full ROM Respiratory: no wheezing, no rales, no rhonchi, clear to auscultation bilateral Cardiovascular: RRR, no rub S1, s2 Gastrointestinal: soft, non-tender, positive bowel sounds distention Neurological: moves all 4 limbs Psychiatric: normal affect, A&O x 3 Dx/Plan (1) Sepsis Code(s): A41.9 - SEPSIS, UNSPECIFIED ORGANISM Status: Acute Comment: on IV cefepime and vancomycin, preliminary blood cultures negative (2) Multiple myeloma Code(s): C90.00 - MULTIPLE MYELOMA NOT HAVING ACHIEVED REMISSION Status: Acute Comment: new diagnosis during this hospitalization, chemo per oncology service (3) Thrombocytopenia Code(s): D69.6 - THROMBOCYTOPENIA, UNSPECIFIED Status: Acute Comment: Plts improved to 38 after transfusion (4) Pelvic fluid collection Code(s): R18.8 - OTHER ASCITES Status: Acute Comment: continue antibiotics, surgery following, possible drain when plt count improves (5) HTN (hypertension) Code(s): I10 - ESSENTIAL (PRIMARY) HYPERTENSION Status: Chronic Comment: controlled (6) Colorectal cancer Code(s): C19 - MALIGNANT NEOPLASM OF RECTOSIGMOID JUNCTION Status: Chronic (7) DAISY (acute kidney injury) Code(s): N17.9 - ACUTE KIDNEY FAILURE, UNSPECIFIED Status: Resolved - Plan * . Review of Systems - Review of Systems Constitutional: negative: fever, chills, sweats, weakness, malaise Respiratory: SOB with Excertion. negative: Cough, Shortness of Breath, Hemoptysis, Pleuritic Pain, Sputum, Wheezing Cardiovascular: negative: chest pain, palpitations, orthopnea, paroxysmal nocturnal dyspnea, edema, light headedness Gastrointestinal: negative: Nausea, Vomiting, Abdominal Pain, Diarrhea, Constipation, Melena, Hematochezia Genitourinary: negative: Dysuria, Frequency, Incontinence, Hematuria, Retention Skin: negative: Rash, Lesions, John, Bruising - Medications/Allergies Allergies/Adverse Reactions: Allergies Allergy/AdvReac Type Severity Reaction Status Date / Time fentanyl Allergy Verified 04/03/18 22:00 Medications: Current Medications Acetaminophen (Tylenol) 650 mg PO Q4H PRN PRN Reason: Headache/Fever or Pain Last Admin: 04/04/18 10:11 Dose: 650 mg Hydrocodone Bitart/Acetaminophen ([place] 10/325) 1 tab PO Q4H PRN PRN Reason: Moderate Pain (4-6) Hydrocodone Bitart/Acetaminophen ([place] 10/325) 2 tab PO Q4H PRN PRN Reason: Severe Pain (7-10) Last Admin: 04/07/18 11:56 Dose: 2 tab Calcium Carbonate (Tums) 1,000 mg PO Q4H PRN PRN Reason: HEARTBURN Last Admin: 04/07/18 06:30 Dose: 1,000 mg Docusate Sodium (Colace) 100 mg PO BID [facility] Famotidine (Pepcid) 20 mg PO BID [facility] Last Admin: 04/07/18 07:56 Dose: 20 mg Cefepime HCl 1 gm/ Sodium (Chloride) 100 mls @ 200 mls/hr IVPB 1000,2200 [facility] Last Admin: 04/07/18 10:08 Dose: 100 mls Sodium Chloride (Normal Saline 0.9%) 1,000 mls @ 100 mls/hr IV .Q10H [facility] Last Admin: 04/07/18 01:30 Dose: 1,000 mls Vancomycin HCl 1.25 gm/ Sodium (Chloride) 250 mls @ 166.667 mls/hr IVPB 1200, 2359 [facility] Last Admin: 04/07/18 11:54 Dose: 250 mls Dexamethasone 40 mg/ Sodium (Chloride) 60 mls @ 100 mls/hr IVPB 1700 [facility] Morphine Sulfate (Morphine) 2 mg SLOW IVP Q4H PRN PRN Reason: Mild-Moderate Pain (1-5) Last Admin: 04/04/18 14:42 Dose: 2 mg Morphine Sulfate (Morphine) 4 mg SLOW IVP Q4H PRN PRN Reason: Moderate to Severe Pain (6-10) Ondansetron HCl (Zofran) 4 mg IVP Q6H PRN PRN Reason: Nausea/Vomiting Last Admin: 04/06/18 21:38 Dose: 4 mg Pantoprazole Sodium (Protonix) 40 mg IVP DAILY [facility] Sodium Chloride (Flush - Normal Saline) 10 ml IVF Q12HR [facility] Last Admin: 04/07/18 08:02 Dose: 10 ml Sodium Chloride (Flush - Normal Saline) 10 ml IVF PRN PRN PRN Reason: Saline Flush
[2018-04-07] MEDS: Dexamethasone 40 MG in Sodium Chloride 0.9% 50 ML IVPB SCH (16:28)
[2018-04-08] MEDS: HYDROcodone/Acetaminophen 10/325 mg Tablet PO PRN ×5 (01:54→23:04)
[2018-04-08] MEDS: Sodium Chloride 0.9% 1,000 ML IV SCH ×2 (07:13→17:40)
[2018-04-08] MEDS: Pantoprazole 40 MG VIAL IVP SCH (09:07)
[2018-04-08] MEDS: Docusate 100 MG CAP PO SCH ×2 (09:07→20:54)
[2018-04-08] MEDS: Famotidine 20 MG TAB PO SCH ×2 (09:07→20:54)
[2018-04-08] MEDS: Cefepime 1 GM in Sodium Chloride 0.9% 100 ML IVPB SCH ×2 (09:20→21:01)
[2018-04-08] MEDS: Vancomycin HCl 1.25 GM in Sodium Chloride 0.9% 250 ML 250 ML IVPB SCH (13:18)
[2018-04-08] MEDS: Dexamethasone 40 MG in Sodium Chloride 0.9% 50 ML IVPB SCH (17:39)
--- NOTE | 2018-04-08 21:35 | PDOC.PN ---
- Subjective Encounter Start Date: 04/08/18 Encounter Start Time: 09:15 Patient seen and examined. Patient is sitting by the bedside in a chair. Tolerating her meals. Has no acute distress. States that she has no complaints. - Objective Resuscitation Status: Resuscitation Status FULL:Full Resuscitation MAR Reviewed: Yes Vital Signs & Weight: Vital Signs (12 hours) Temp Pulse Resp BP Pulse Ox 04/08/18 19:13 98.1 F 91 16 122/58 L 95 04/08/18 15:58 93 L 04/08/18 12:00 92 L Weight Weight 218 lb I&O: 04/07/18 04/08/18 04/09/18 06:59 06:59 06:59 Intake Total 5969 072 7135 Output Total 500 3715 2027 Balance 1210 -1005 -28 Result Diagrams: 04/10/18 08:36 04/10/18 08:36 Phys Exam - Physical Examination Constitutional: NAD HEENT: PERRLA, moist MMs Neck: no JVD, supple Respiratory: no wheezing, no rales, no rhonchi, clear to auscultation bilateral Cardiovascular: RRR, no significant murmur, no rub Gastrointestinal: soft, non-tender, no distention Musculoskeletal: pulses present Neurological: non-focal, normal sensation, moves all 4 limbs Psychiatric: normal affect, A&O x 3 Dx/Plan (1) Pelvic fluid collection Code(s): R18.8 - OTHER ASCITES Status: Acute Comment: Will follow up with surgery on when fluid will be drained percutaneously. (2) Rectal cancer Code(s): C20 - MALIGNANT NEOPLASM OF RECTUM Status: Acute Comment: heme/onc fellowing. Will follow up on their recs. (3) Sepsis Code(s): A41.9 - SEPSIS, UNSPECIFIED ORGANISM Status: Acute Comment: continue on IV cefepime and vancomycin (4) Thrombocytopenia Code(s): D69.6 - THROMBOCYTOPENIA, UNSPECIFIED Status: Acute Comment: Plts improved to 38 after transfusion. platelets low @ 15. will transfuse platelets (5) Colorectal cancer Code(s): C19 - MALIGNANT NEOPLASM OF RECTOSIGMOID JUNCTION Status: Chronic (6) HTN (hypertension) Code(s): I10 - ESSENTIAL (PRIMARY) HYPERTENSION Status: Chronic Comment: controlled (7) DAISY (acute kidney injury) Code(s): N17.9 - ACUTE KIDNEY FAILURE, UNSPECIFIED Status: Resolved - Plan cont current plan of care * . Review of Systems - Review of Systems Constitutional: negative: fever, chills, sweats, weakness, malaise, other Eyes: negative: Pain, Vision Change, Conjunctivae Inflammation, Eyelid Inflammation, Redness, Other ENT: negative: Ear Pain, Ear Discharge, Nose Pain, Nose Discharge, Nose Congestion, Mouth Pain, Mouth Swelling, Throat Pain, Throat Swelling, Other Respiratory: negative: Cough, Dry, Shortness of Breath, Hemoptysis, SOB with Excertion, Pleuritic Pain, Sputum, Wheezing Cardiovascular: negative: chest pain, palpitations, orthopnea, paroxysmal nocturnal dyspnea, edema, light headedness, other Gastrointestinal: negative: Nausea, Vomiting, Abdominal Pain, Diarrhea, Constipation, Melena, Hematochezia, Other Genitourinary: negative: Dysuria, Frequency, Incontinence, Hematuria, Retention , Other Musculoskeletal: negative: Neck Pain, Shoulder Pain, Arm Pain, Back Pain, Hand Pain, Leg Pain, Foot Pain, Other Skin: negative: Rash, Lesions, John, Bruising, Other Neurological: negative: Weakness, Numbness, Incoordination, Change in Speech, Confusion, Seizures, Other - Medications/Allergies Allergies/Adverse Reactions: Allergies Allergy/AdvReac Type Severity Reaction Status Date / Time fentanyl Allergy Verified 04/03/18 22:00 Medications: Current Medications Acetaminophen (Tylenol) 650 mg PO Q4H PRN PRN Reason: Headache/Fever or Pain Last Admin: 04/04/18 10:11 Dose: 650 mg Hydrocodone Bitart/Acetaminophen ([place] 10/325) 1 tab PO Q4H PRN PRN Reason: Moderate Pain (4-6) Hydrocodone Bitart/Acetaminophen ([place] 10/325) 2 tab PO Q4H PRN PRN Reason: Severe Pain (7-10) Last Admin: 04/10/18 13:19 Dose: 2 tab Calcium Carbonate (Tums) 1,000 mg PO Q4H PRN PRN Reason: HEARTBURN Last Admin: 04/07/18 17:58 Dose: 1,000 mg Docusate Sodium (Colace) 100 mg PO BID [facility] Last Admin: 04/10/18 09:03 Dose: 100 mg Famotidine (Pepcid) 20 mg PO BID [facility] Last Admin: 04/10/18 09:04 Dose: 20 mg Folic Acid (Folvite) 1 mg PO DAILY [facility] Last Admin: 04/10/18 09:04 Dose: 1 mg Dexamethasone 40 mg/ Sodium (Chloride) 60 mls @ 100 mls/hr IVPB 1700 [facility] Last Admin: 04/09/18 17:57 Dose: 60 mls Magnesium Citrate (Citrate Of Magnesia 300 Ml Bot) 300 ml PO ONE [facility] Stop: 04/10/18 21:00 Last Admin: 04/10/18 10:13 Dose: 300 ml Morphine Sulfate (Morphine) 2 mg SLOW IVP Q4H PRN PRN Reason: Mild-Moderate Pain (1-5) Last Admin: 04/04/18 14:42 Dose: 2 mg Morphine Sulfate (Morphine) 4 mg SLOW IVP Q4H PRN PRN Reason: Moderate to Severe Pain (6-10) Ondansetron HCl (Zofran) 4 mg IVP Q6H PRN PRN Reason: Nausea/Vomiting Last Admin: 04/06/18 21:38 Dose: 4 mg Pantoprazole Sodium (Protonix) 40 mg IVP DAILY [facility] Last Admin: 04/10/18 09:04 Dose: 40 mg Sodium Chloride (Flush - Normal Saline) 10 ml IVF Q12HR [facility] Last Admin: 04/10/18 09:04 Dose: 10 ml Sodium Chloride (Flush - Normal Saline) 10 ml IVF PRN PRN PRN Reason: Saline Flush
[2018-04-08 23:35] LABS: Vancomycin, Trough 29.3 ug/mL
[2018-04-09] MEDS: Sodium Chloride 0.9% 1,000 ML IV SCH ×4 (02:00→21:36)
[2018-04-09 04:30] LABS: Reticulocyte Count 0.4 % (0.5-1.5)
[2018-04-09] MEDS: HYDROcodone/Acetaminophen 10/325 mg Tablet PO PRN ×6 (04:33→23:59)
[2018-04-09 04:37] LABS: Platelet Count 15 thou/uL (130-400)
[2018-04-09 04:55] LABS: Band 7 % (5-11); Hemoglobin 6.9 g/dL (12.0-16.0); Lymphocytes 39 % (21-51); MDiff Complete? YES; Mean Corpuscular HGB CONC 34.3 g/dL (32.0-36.0); Mean Corpuscular Hemoglobin 27.2 pg (27.0-31.0); Mean Corpuscular Volume 79.2 fL (78.0-98.0); Mean Platelet Volume 14.6 fL (7.4-10.4); Metamyelocyte 5 % (0-0); Monocytes 15 % (0-10); Myelocyte 1 % (0-0); Neutrophil 31 % (42-75); PLT Morphology Comment Appears Decreased; RBC Distribution Width 18.5 % (11.5-14.5); Reactive Lymphocytes 2 % (0-10); Red Blood Cell (RBC) Count 2.54 mill/uL (4.20-5.40); Target Cells MODERATE= 6-15 cells (100X) (0-1/hpf); Vacuoles SLIGHT; White Blood Cell (WBC) Count 6.9 thou/uL (4.8-10.8)
[2018-04-09 05:25] LABS: Anion Gap 17 mmol/L (10-20); BUN (Urea Nitrogen) 38 mg/dL (9.8-20.1); Calc. Creatinine Clearance 108 mL/min (70-130); Calcium 9.3 mg/dL (7.8-10.44); Carbon Dioxide 19 mmol/L (22-29); Chloride 107 mmol/L (98-107); Estimated GFR-MDRD 77; Glucose 154 mg/dL (70-105); Iron 210 ug/dL (50-170); Iron Binding Capacity, Total 258 mcg/dL (265-497); Potassium 4.2 mmol/L (3.5-5.1); Sodium 139 mmol/L (136-145)
[2018-04-09 05:30] LABS: Folate (Folic Acid) 6.8 ng/mL (7.0-31.4)
[2018-04-09] MEDS: Docusate 100 MG CAP PO SCH ×2 (08:33→19:58)
[2018-04-09] MEDS: Famotidine 20 MG TAB PO SCH ×2 (08:33→20:29)
[2018-04-09] MEDS: Folic Acid 1 MG TAB PO SCH (08:33)
[2018-04-09] MEDS: Pantoprazole 40 MG VIAL IVP SCH (08:34)
[2018-04-09] MEDS: Cefepime 1 GM in Sodium Chloride 0.9% 100 ML IVPB SCH ×2 (10:50→21:16)
[2018-04-09 11:40] LABS: Vancomycin, Random 18.9 ug/mL (See Comment)
[2018-04-09] MEDS ORDERED: Vancomycin HCl 1.75 GM in Sodium Chloride 0.9% 500 ML IVPB SCH (12:00)
[2018-04-09] MEDS: Vancomycin HCl 1.75 GM in Sodium Chloride 0.9% 500 ML IVPB SCH (12:22)
--- NOTE | 2018-04-09 16:29 | PDOC.PN ---
- Subjective Encounter Start Date: 04/09/18 Encounter Start Time: 10:15 Patient seen and examined by me. Patient lying in bed. concerned about her ostomy. States that she has not had any BM yet. Patient was anemic on her morning labs however have no complaints. - Objective Resuscitation Status: Resuscitation Status FULL:Full Resuscitation Vital Signs & Weight: Vital Signs (12 hours) Temp Pulse Pulse Resp BP BP Pulse Ox 04/09/18 16:12 97.9 F 82 16 120/74 04/09/18 15:47 98.0 F 82 16 119/58 L 04/09/18 09:10 97.1 F L 80 18 123/60 04/09/18 08:36 97.9 F 85 18 138/62 04/09/18 08:05 97.6 F 79 20 138/63 04/09/18 08:00 97.9 F 78 18 138/63 94 L Weight Weight 218 lb I&O: 04/08/18 04/09/18 04/10/18 06:59 06:59 06:59 Intake Total 820 3350 250 Output Total 1825 3028 Balance -1005 322 250 Result Diagrams: 04/10/18 08:36 04/10/18 08:36 Phys Exam - Physical Examination Constitutional: NAD HEENT: PERRLA, moist MMs Neck: no JVD Respiratory: no wheezing, no rales Cardiovascular: RRR, no significant murmur, no rub Gastrointestinal: soft, non-tender, no distention ostomy bag has no stools. Musculoskeletal: no edema, pulses present Neurological: non-focal, normal sensation, moves all 4 limbs Psychiatric: A&O x 3 Skin: no rash Dx/Plan (1) Anemia in chronic illness Code(s): D63.8 - ANEMIA IN OTHER CHRONIC DISEASES CLASSIFIED ELSEWHERE Status : Acute Comment: s/p 2 units Transfusion. consulted obgyn for vaginal bleed. Per OBGYN there is no acute bleed at this point. (2) Pelvic fluid collection Code(s): R18.8 - OTHER ASCITES Status: Acute Comment: Will follow up with surgery on when fluid will be drained percutaneously. (3) Rectal cancer Code(s): C20 - MALIGNANT NEOPLASM OF RECTUM Status: Acute Comment: heme/onc fellowing. Will follow up on their recs. (4) Sepsis Code(s): A41.9 - SEPSIS, UNSPECIFIED ORGANISM Status: Acute Comment: continue on IV cefepime and vancomycin (5) Thrombocytopenia Code(s): D69.6 - THROMBOCYTOPENIA, UNSPECIFIED Status: Acute Comment: Plts improved to 38 after transfusion. platelets low @ 15. will transfuse platelets (6) Colorectal cancer Code(s): C19 - MALIGNANT NEOPLASM OF RECTOSIGMOID JUNCTION Status: Chronic (7) HTN (hypertension) Code(s): I10 - ESSENTIAL (PRIMARY) HYPERTENSION Status: Chronic Comment: controlled (8) DAISY (acute kidney injury) Code(s): N17.9 - ACUTE KIDNEY FAILURE, UNSPECIFIED Status: Resolved - Plan * . Review of Systems - Review of Systems Constitutional: negative: fever, chills, sweats, weakness, malaise, other Eyes: negative: Pain, Vision Change, Conjunctivae Inflammation, Eyelid Inflammation, Redness, Other ENT: negative: Ear Pain, Ear Discharge, Nose Pain, Nose Discharge, Nose Congestion, Mouth Pain, Mouth Swelling, Throat Pain, Throat Swelling, Other Respiratory: negative: Cough, Dry, Shortness of Breath, Hemoptysis, SOB with Excertion, Pleuritic Pain, Sputum, Wheezing Cardiovascular: negative: chest pain, palpitations, orthopnea, paroxysmal nocturnal dyspnea, edema, light headedness, other Gastrointestinal: negative: Nausea, Vomiting, Abdominal Pain, Diarrhea, Constipation, Melena, Hematochezia, Other Genitourinary: negative: Dysuria, Frequency, Incontinence, Hematuria, Retention , Other Musculoskeletal: negative: Neck Pain, Shoulder Pain, Arm Pain, Back Pain, Hand Pain, Leg Pain, Foot Pain, Other Skin: negative: Rash, Lesions, John, Bruising, Other Neurological: negative: Weakness, Numbness, Incoordination, Change in Speech, Confusion, Seizures, Other - Medications/Allergies Allergies/Adverse Reactions: Allergies Allergy/AdvReac Type Severity Reaction Status Date / Time fentanyl Allergy Verified 04/03/18 22:00 Medications: Current Medications Acetaminophen (Tylenol) 650 mg PO Q4H PRN PRN Reason: Headache/Fever or Pain Last Admin: 04/04/18 10:11 Dose: 650 mg Hydrocodone Bitart/Acetaminophen ([place] 10/325) 1 tab PO Q4H PRN PRN Reason: Moderate Pain (4-6) Hydrocodone Bitart/Acetaminophen ([place] 10/325) 2 tab PO Q4H PRN PRN Reason: Severe Pain (7-10) Last Admin: 04/10/18 13:19 Dose: 2 tab Calcium Carbonate (Tums) 1,000 mg PO Q4H PRN PRN Reason: HEARTBURN Last Admin: 04/07/18 17:58 Dose: 1,000 mg Docusate Sodium (Colace) 100 mg PO BID [facility] Last Admin: 04/10/18 09:03 Dose: 100 mg Famotidine (Pepcid) 20 mg PO BID [facility] Last Admin: 04/10/18 09:04 Dose: 20 mg Folic Acid (Folvite) 1 mg PO DAILY [facility] Last Admin: 04/10/18 09:04 Dose: 1 mg Dexamethasone 40 mg/ Sodium (Chloride) 60 mls @ 100 mls/hr IVPB 1700 [facility] Last Admin: 04/09/18 17:57 Dose: 60 mls Magnesium Citrate (Citrate Of Magnesia 300 Ml Bot) 300 ml PO ONE [facility] Stop: 04/10/18 21:00 Last Admin: 04/10/18 10:13 Dose: 300 ml Morphine Sulfate (Morphine) 2 mg SLOW IVP Q4H PRN PRN Reason: Mild-Moderate Pain (1-5) Last Admin: 04/04/18 14:42 Dose: 2 mg Morphine Sulfate (Morphine) 4 mg SLOW IVP Q4H PRN PRN Reason: Moderate to Severe Pain (6-10) Ondansetron HCl (Zofran) 4 mg IVP Q6H PRN PRN Reason: Nausea/Vomiting Last Admin: 04/06/18 21:38 Dose: 4 mg Pantoprazole Sodium (Protonix) 40 mg IVP DAILY [facility] Last Admin: 04/10/18 09:04 Dose: 40 mg Sodium Chloride (Flush - Normal Saline) 10 ml IVF Q12HR [facility] Last Admin: 04/10/18 09:04 Dose: 10 ml Sodium Chloride (Flush - Normal Saline) 10 ml IVF PRN PRN PRN Reason: Saline Flush
[2018-04-09] MEDS: Dexamethasone 40 MG in Sodium Chloride 0.9% 50 ML IVPB SCH (17:57)
[2018-04-10] MEDS: HYDROcodone/Acetaminophen 10/325 mg Tablet PO PRN ×5 (05:01→21:26)
[2018-04-10 08:55] LABS: Mean Corpuscular HGB CONC 34.8 g/dL (32.0-36.0); Mean Corpuscular Hemoglobin 28.6 pg (27.0-31.0); Mean Corpuscular Volume 82.1 fL (78.0-98.0); Mean Platelet Volume 11.9 fL (7.4-10.4); Platelet Count 34 thou/uL (130-400); RBC Distribution Width 17.7 % (11.5-14.5); Red Blood Cell (RBC) Count 3.16 mill/uL (4.20-5.40); White Blood Cell (WBC) Count 6.9 thou/uL (4.8-10.8)
[2018-04-10] MEDS: Docusate 100 MG CAP PO SCH ×2 (09:03→21:09)
[2018-04-10] MEDS: Famotidine 20 MG TAB PO SCH ×2 (09:04→21:09)
[2018-04-10] MEDS: Pantoprazole 40 MG VIAL IVP SCH (09:04)
[2018-04-10] MEDS: Folic Acid 1 MG TAB PO SCH (09:04)
[2018-04-10 09:06] LABS: Anion Gap 14 mmol/L (10-20); BUN (Urea Nitrogen) 31 mg/dL (9.8-20.1); Calc. Creatinine Clearance 113 mL/min (70-130); Calcium 8.5 mg/dL (7.8-10.44); Carbon Dioxide 20 mmol/L (22-29); Chloride 109 mmol/L (98-107); Estimated GFR-MDRD 81; Glucose 136 mg/dL (70-105); Sodium 139 mmol/L (136-145)
[2018-04-10] MEDS: Sodium Chloride 0.9% 1,000 ML IV SCH (09:08)
[2018-04-10] MEDS ORDERED: Magnesium Citrate 300 ML BOT PO SCH (10:00)
[2018-04-10] MEDS: Cefepime 1 GM in Sodium Chloride 0.9% 100 ML IVPB SCH (10:11)
--- NOTE | 2018-04-10 11:10 | CON ---
DATE OF CONSULTATION: 04/10/2018 TIME OF EVALUATION: From 10:15-10:40 LOCATION: Room 134. REQUESTING PHYSICIAN: Dr. Asher. REASON FOR EVALUATION: Possible vaginal bleeding, but unsure; history of colorectal carcinoma and low platelets at 36 with possible new primary multiple myeloma being considered. HISTORY OF PRESENT ILLNESS: In brief, this is a 58-year-old -[place] female, G4, P4, with 3 prior vaginal deliveries with her last delivery being a C -section. She has a diagnosis of colorectal cancer in 2016. She states that she had a drain removal with Dr. Contreras in 01/2018 (02/07/2018), which I reviewed in the medical record. During that time, there was a perianal wound tract that was not directly involving the vaginal wall. This may be the site of the bleeding, as her platelets are significantly low this admission. Platelets when admitted were 22. ALLERGIES: Include FENTANYL. OB HISTORY: She is a G4, P4. SURGERIES: Include a prior colostomy and MediPort placement. This admission, she had a bone marrow biopsy on the 8th of this month. She also had a CT scan of the abdomen and pelvis, which showed an end colostomy without obstruction, there was also some presacral gas and fluid, there was a possibly small calcified dermoid. PHYSICAL EXAMINATION: I evaluated the patient at bedside and also lying in bed. I do not find any active vaginal bleeding. I performed finger sweep inside the vagina and I find no clots or vaginal bleeding (RN present during this portion of the exam). ASSESSMENT with PLAN: This is a patient with colon cancer history and possible multiple myeloma with "vaginal bleeding" of unsure etiology. As she has a history of a perianal tract, it is my suspicion that the low platelets caused reactivation of this bleeding - and that may be possible. I do not find any evidence of gynecological bleeding at this time. The CT scan did not show any evidence of acute gynecological pathology outside of the small calcified inactive dermoid. I discussed with her the possibility of transvaginal ultrasound, but she is not currently interested in that approach. As I do not suspect gynecological bleeding, I think that is reasonable. I have also relayed this information to Dr. Asher, who is the patient's physician. I have no new gynecological input at this time. patient also has a handwritten note by me in the physical chart. CHUCKYD
[2018-04-10] MEDS: Vancomycin HCl 1.75 GM in Sodium Chloride 0.9% 500 ML IVPB SCH (12:29)
--- NOTE | 2018-04-10 14:56 | PDOC.PN ---
- Subjective Encounter Start Date: 04/10/18 Encounter Start Time: 14:55 Patient seen and examined. Patient is in her wheel chair at the lobby. NAD. - Objective Resuscitation Status: Resuscitation Status FULL:Full Resuscitation Vital Signs & Weight: Vital Signs (12 hours) Temp Pulse Resp BP Pulse Ox 04/10/18 08:00 97.9 F 79 18 134/62 99 Weight Weight 218 lb I&O: 04/09/18 04/10/18 04/11/18 06:59 06:59 06:59 Intake Total 3350 3560 Output Total 3028 2250 Balance 322 1310 Result Diagrams: 04/10/18 08:36 04/10/18 08:36 Phys Exam - Physical Examination Constitutional: NAD HEENT: PERRLA, moist MMs Neck: no JVD Respiratory: no wheezing, no rales, clear to auscultation bilateral Cardiovascular: RRR, no significant murmur Gastrointestinal: soft, non-tender ostomy bag noted Musculoskeletal: no edema Neurological: non-focal, normal sensation, moves all 4 limbs Psychiatric: A&O x 3 Skin: no rash Dx/Plan (1) Anemia in chronic illness Code(s): D63.8 - ANEMIA IN OTHER CHRONIC DISEASES CLASSIFIED ELSEWHERE Status : Acute Comment: s/p 2 units Transfusion. consulted obgyn for vaginal bleed. Per OBGYN there is no acute bleed at this point. (2) Pelvic fluid collection Code(s): R18.8 - OTHER ASCITES Status: Acute Comment: Will follow up with surgery on when fluid will be drained percutaneously. (3) Rectal cancer Code(s): C20 - MALIGNANT NEOPLASM OF RECTUM Status: Acute Comment: heme/onc fellowing. Will follow up on their recs. (4) Sepsis Code(s): A41.9 - SEPSIS, UNSPECIFIED ORGANISM Status: Acute Comment: continue on IV cefepime and vancomycin (5) Thrombocytopenia Code(s): D69.6 - THROMBOCYTOPENIA, UNSPECIFIED Status: Acute Comment: Plts improved to 38 after transfusion. platelets low @ 15. will transfuse platelets (6) Colorectal cancer Code(s): C19 - MALIGNANT NEOPLASM OF RECTOSIGMOID JUNCTION Status: Chronic (7) HTN (hypertension) Code(s): I10 - ESSENTIAL (PRIMARY) HYPERTENSION Status: Chronic Comment: controlled (8) DAISY (acute kidney injury) Code(s): N17.9 - ACUTE KIDNEY FAILURE, UNSPECIFIED Status: Resolved - Plan * . Review of Systems - Review of Systems Constitutional: negative: fever, chills, sweats, weakness, malaise, other Eyes: negative: Pain, Vision Change, Conjunctivae Inflammation, Eyelid Inflammation, Redness, Other ENT: negative: Ear Pain, Ear Discharge, Nose Pain, Nose Discharge, Nose Congestion, Mouth Pain, Mouth Swelling, Throat Pain, Throat Swelling, Other Respiratory: negative: Cough, Dry, Shortness of Breath, Hemoptysis, SOB with Excertion, Pleuritic Pain, Sputum, Wheezing Cardiovascular: negative: chest pain, palpitations, orthopnea, paroxysmal nocturnal dyspnea, edema, light headedness, other Gastrointestinal: negative: Nausea, Vomiting, Abdominal Pain, Diarrhea, Constipation, Melena, Hematochezia, Other Genitourinary: negative: Dysuria, Frequency, Incontinence, Hematuria, Retention , Other Musculoskeletal: negative: Neck Pain, Shoulder Pain, Arm Pain, Back Pain, Hand Pain, Leg Pain, Foot Pain, Other Skin: negative: Rash, Lesions, John, Bruising, Other Neurological: negative: Weakness, Numbness, Incoordination, Change in Speech, Confusion, Seizures, Other - Medications/Allergies Allergies/Adverse Reactions: Allergies Allergy/AdvReac Type Severity Reaction Status Date / Time fentanyl Allergy Verified 04/03/18 22:00 Medications: Current Medications Acetaminophen (Tylenol) 650 mg PO Q4H PRN PRN Reason: Headache/Fever or Pain Last Admin: 04/04/18 10:11 Dose: 650 mg Hydrocodone Bitart/Acetaminophen ([place] 10/325) 1 tab PO Q4H PRN PRN Reason: Moderate Pain (4-6) Hydrocodone Bitart/Acetaminophen ([place] 10/325) 2 tab PO Q4H PRN PRN Reason: Severe Pain (7-10) Last Admin: 04/10/18 13:19 Dose: 2 tab Calcium Carbonate (Tums) 1,000 mg PO Q4H PRN PRN Reason: HEARTBURN Last Admin: 04/07/18 17:58 Dose: 1,000 mg Docusate Sodium (Colace) 100 mg PO BID [facility] Last Admin: 04/10/18 09:03 Dose: 100 mg Famotidine (Pepcid) 20 mg PO BID [facility] Last Admin: 04/10/18 09:04 Dose: 20 mg Folic Acid (Folvite) 1 mg PO DAILY [facility] Last Admin: 04/10/18 09:04 Dose: 1 mg Dexamethasone 40 mg/ Sodium (Chloride) 60 mls @ 100 mls/hr IVPB 1700 [facility] Last Admin: 04/09/18 17:57 Dose: 60 mls Magnesium Citrate (Citrate Of Magnesia 300 Ml Bot) 300 ml PO ONE DANIEL Stop: 04/10/18 21:00 Last Admin: 04/10/18 10:13 Dose: 300 ml Morphine Sulfate (Morphine) 2 mg SLOW IVP Q4H PRN PRN Reason: Mild-Moderate Pain (1-5) Last Admin: 04/04/18 14:42 Dose: 2 mg Morphine Sulfate (Morphine) 4 mg SLOW IVP Q4H PRN PRN Reason: Moderate to Severe Pain (6-10) Ondansetron HCl (Zofran) 4 mg IVP Q6H PRN PRN Reason: Nausea/Vomiting Last Admin: 04/06/18 21:38 Dose: 4 mg Pantoprazole Sodium (Protonix) 40 mg IVP DAILY [facility] Last Admin: 04/10/18 09:04 Dose: 40 mg Sodium Chloride (Flush - Normal Saline) 10 ml IVF Q12HR [facility] Last Admin: 04/10/18 09:04 Dose: 10 ml Sodium Chloride (Flush - Normal Saline) 10 ml IVF PRN PRN PRN Reason: Saline Flush
[2018-04-10 17:13] LABS: Kappa/Lambda Ratio 0.06 (2.04-10.37)
[2018-04-10] MEDS: Dexamethasone 40 MG in Sodium Chloride 0.9% 50 ML IVPB SCH (17:32)
[2018-04-11] MEDS: Pantoprazole 40 MG VIAL IVP SCH (09:04)
[2018-04-11] MEDS: Docusate 100 MG CAP PO SCH (09:06)
[2018-04-11] MEDS: Folic Acid 1 MG TAB PO SCH (09:07)
[2018-04-11] MEDS: Famotidine 20 MG TAB PO SCH (09:07)
[2018-04-11] MEDS: HYDROcodone/Acetaminophen 10/325 mg Tablet PO PRN (09:09)
[2018-04-11 09:34] LABS: Anion Gap 18 mmol/L (10-20); BUN (Urea Nitrogen) 23 mg/dL (9.8-20.1); Calc. Creatinine Clearance 121 mL/min (70-130); Calcium 8.6 mg/dL (7.8-10.44); Carbon Dioxide 20 mmol/L (22-29); Chloride 108 mmol/L (98-107); Estimated GFR-MDRD 89; Glucose 160 mg/dL (70-105); Potassium 4.5 mmol/L (3.5-5.1); Sodium 141 mmol/L (136-145)
[2018-04-11 09:50] LABS: Hemoglobin 9.5 g/dL (12.0-16.0); Mean Corpuscular HGB CONC 35.6 g/dL (32.0-36.0); Mean Corpuscular Hemoglobin 28.6 pg (27.0-31.0); Mean Corpuscular Volume 80.3 fL (78.0-98.0); Mean Platelet Volume 14.1 fL (7.4-10.4); Platelet Count 24 thou/uL (130-400); RBC Distribution Width 17.9 % (11.5-14.5); Red Blood Cell (RBC) Count 3.32 mill/uL (4.20-5.40); White Blood Cell (WBC) Count 7.2 thou/uL (4.8-10.8)
[2018-04-11] MEDS ORDERED: Furosemide 40 MG/4 ML VIAL SLOW IVP SCH (12:15)
[2018-04-11] MEDS ORDERED: Nicotine 14 MG PATCH TD SCH (13:00)
--- NOTE | 2018-04-11 13:02 | PDOC.PN ---
- Subjective Encounter Start Date: 04/11/18 Encounter Start Time: 13:00 Patient seen and examined. Not in acute distress. On 2L NC. Patient states that she needs her direutics. Patient states that her feet are swollen today and she had mild vaginal bleed during urination others no acute events overnight. - Objective Resuscitation Status: Resuscitation Status FULL:Full Resuscitation MAR Reviewed: Yes Vital Signs & Weight: Vital Signs (12 hours) Temp Pulse Resp BP Pulse Ox 04/11/18 08:00 98.0 F 77 18 94 L 04/11/18 07:30 98.0 F 77 18 138/62 94 L 04/11/18 04:00 98.2 F Weight Weight 218 lb I&O: 04/10/18 04/11/18 04/12/18 06:59 06:59 06:59 Intake Total 3560 3300 Output Total 2250 1250 Balance 1310 0 Result Diagrams: 04/11/18 08:47 04/11/18 08:47 Phys Exam - Physical Examination Constitutional: NAD HEENT: PERRLA Neck: no JVD Respiratory: no wheezing, no rales, no rhonchi Cardiovascular: RRR, no significant murmur, no rub Gastrointestinal: soft, non-tender, no distention, positive bowel sounds Has ostomy bag with stools Musculoskeletal: edema present Neurological: non-focal, normal sensation, moves all 4 limbs Psychiatric: normal affect, A&O x 3 Skin: no rash Dx/Plan (1) Acute respiratory failure with hypoxia Code(s): J96.01 - ACUTE RESPIRATORY FAILURE WITH HYPOXIA Status: Acute Comment: Patient has hypoxia at 85 @ room air with resting and walking for 6 mins. Patient will need home oxygen. Patient states that she smokes every ones in a while but its willing to quit. I have explaine the risks of smoking with oxygen at home. Patient understands and states that she will try using nicotine patch to quit. In the past patient used chantix but gave her hallucination and nightmares. agree that they will work together to help her quit. (2) Anemia in chronic illness Code(s): D63.8 - ANEMIA IN OTHER CHRONIC DISEASES CLASSIFIED ELSEWHERE Status : Acute Comment: s/p 2 units. h/h is stable now. (3) Physical deconditioning Code(s): R53.81 - OTHER MALAISE Status: Acute Comment: Needs rolling walker. (4) Pelvic fluid collection Code(s): R18.8 - OTHER ASCITES Status: Acute Comment: per surgery outpt workup (5) Rectal cancer Code(s): C20 - MALIGNANT NEOPLASM OF RECTUM Status: Acute Comment: outpt chemo starting tomorrow. (6) Sepsis Code(s): A41.9 - SEPSIS, UNSPECIFIED ORGANISM Status: Resolved Comment: of antiotics. (7) Thrombocytopenia Code(s): D69.6 - THROMBOCYTOPENIA, UNSPECIFIED Status: Acute Comment: will transfuse a unit of platelets before patient leaves. (8) Colorectal cancer Code(s): C19 - MALIGNANT NEOPLASM OF RECTOSIGMOID JUNCTION Status: Chronic (9) HTN (hypertension) Code(s): I10 - ESSENTIAL (PRIMARY) HYPERTENSION Status: Chronic Comment: controlled (10) DAISY (acute kidney injury) Code(s): N17.9 - ACUTE KIDNEY FAILURE, UNSPECIFIED Status: Resolved (11) Edema Code(s): R60.9 - EDEMA, UNSPECIFIED Status: Acute Comment: lower extremities. d/c fluids and give lasix - Plan * . Review of Systems - Review of Systems Constitutional: negative: fever, chills, sweats, weakness, malaise, other Eyes: negative: Pain, Vision Change, Conjunctivae Inflammation, Eyelid Inflammation, Redness, Other ENT: negative: Ear Pain, Ear Discharge, Nose Pain, Nose Discharge, Nose Congestion, Mouth Pain, Mouth Swelling, Throat Pain, Throat Swelling, Other Respiratory: negative: Cough, Dry, Shortness of Breath, Hemoptysis, SOB with Excertion, Pleuritic Pain, Sputum, Wheezing Gastrointestinal: negative: Nausea, Vomiting, Abdominal Pain, Diarrhea, Constipation, Melena, Hematochezia, Other Genitourinary: Hematuria Musculoskeletal: negative: Neck Pain, Shoulder Pain, Arm Pain, Back Pain, Hand Pain, Leg Pain, Foot Pain, Other Skin: negative: Rash, Lesions, John, Bruising, Other Neurological: negative: Weakness, Numbness, Incoordination, Change in Speech, Confusion, Seizures, Other - Medications/Allergies Allergies/Adverse Reactions: Allergies Allergy/AdvReac Type Severity Reaction Status Date / Time fentanyl Allergy Verified 04/03/18 22:00 Medications: Current Medications Acetaminophen (Tylenol) 650 mg PO Q4H PRN PRN Reason: Headache/Fever or Pain Last Admin: 04/04/18 10:11 Dose: 650 mg Hydrocodone Bitart/Acetaminophen ([place] 10/325) 1 tab PO Q4H PRN PRN Reason: Moderate Pain (4-6) Hydrocodone Bitart/Acetaminophen ([place] 10/325) 2 tab PO Q4H PRN PRN Reason: Severe Pain (7-10) Last Admin: 04/11/18 09:09 Dose: 2 tab Calcium Carbonate (Tums) 1,000 mg PO Q4H PRN PRN Reason: HEARTBURN Last Admin: 04/07/18 17:58 Dose: 1,000 mg Docusate Sodium (Colace) 100 mg PO BID [facility] Last Admin: 04/11/18 09:06 Dose: 100 mg Famotidine (Pepcid) 20 mg PO BID [facility] Last Admin: 04/11/18 09:07 Dose: 20 mg Folic Acid (Folvite) 1 mg PO DAILY [facility] Last Admin: 04/11/18 09:07 Dose: 1 mg Furosemide (Lasix) 40 mg SLOW IVP NOW [facility] Stop: 04/11/18 14:00 Last Admin: 04/11/18 12:16 Dose: 40 mg Dexamethasone 40 mg/ Sodium (Chloride) 60 mls @ 100 mls/hr IVPB 1700 [facility] Last Admin: 04/10/18 17:32 Dose: 60 mls Morphine Sulfate (Morphine) 2 mg SLOW IVP Q4H PRN PRN Reason: Mild-Moderate Pain (1-5) Last Admin: 04/04/18 14:42 Dose: 2 mg Morphine Sulfate (Morphine) 4 mg SLOW IVP Q4H PRN PRN Reason: Moderate to Severe Pain (6-10) Nicotine (Nicoderm Patch) 14 mg TD Q24HR [facility] Ondansetron HCl (Zofran) 4 mg IVP Q6H PRN PRN Reason: Nausea/Vomiting Last Admin: 04/06/18 21:38 Dose: 4 mg Pantoprazole Sodium (Protonix) 40 mg IVP DAILY [facility] Last Admin: 04/11/18 09:04 Dose: 40 mg Sodium Chloride (Flush - Normal Saline) 10 ml IVF Q12HR [facility] Last Admin: 04/11/18 09:11 Dose: 10 ml Sodium Chloride (Flush - Normal Saline) 10 ml IVF PRN PRN PRN Reason: Saline Flush
[2018-04-11 15:10] VITALS: BP 151/61; TEMP 98.9
[2018-04-11] MEDS: Dexamethasone 40 MG in Sodium Chloride 0.9% 50 ML IVPB SCH (16:09)
[2018-04-11] MEDS: Acetaminophen 325 MG TAB PO PRN (18:11)
--- NOTE | 2018-04-12 10:22 | DIS ---
The patient was seen and examined by me at the morning of discharge. The patient was not in acute di stress. The patient was stating that she was having some edema in the leg bilaterally, otherwise did not have any acute complaints. DISCHARGE DIAGNOSES: 1. Acute respiratory failure with hypoxia. 2. Anemia in chronic illness. 3. Physical deconditioning. 4. Pelvic fluid collection. 5. Rectal cancer. 6. Sepsis. 7. Thrombocytopenia. 8. Colorectal cancer. 9. Hypertension. 10. Acute kidney injury. 11. Edema. 12. Multiple myeloma. HOSPITAL COURSE: This is a 58-year-old female who presented to the hospital with a chief complaint o f generalized pain and vaginal bleeding. The patient stated that generalized pain and bleeding that has been going on for some time and especially the pain actually started in February and patient stated t hat she spoke to her oncologist regarding this situation. Premedication was given at that time, but there was no improvement and patient states that now her bleeding has worsened and labs were drawn wh ich showed the patient's platelet count was 4000 at that time. Oncologist was called and the patient 's oncologist instructed the patient to transfuse some platelets. During the process, the patient wa s also found to have positive urine and the patient was diagnosed with UTI. The patient was started on antibiotics. The patient has history of rectal cancer, status post Ricco's procedure with an o stomy bag. Surgery was consulted again. Per surgery, patient had some fluid collection in her abdom en; however, because the patient's platelets is so low in 15,000, so surgery has declined to pursue a ny procedures to remove the fluid collection. Oncology was also consulted to evaluate the patient fo r the vaginal bleed by Oncology because the patient's platelets were low, they cannot be able to do a ny biopsy and also there is nothing they can do at this time, so patient . Bone marrow was done which showed the patient has some neoplasm in her bone marrow. Oncology as scheduled for the patien t to come outpatient and to receive chemotherapy in outpatient setting. Patient will also follow up outpatient for the fluid drainage. The patient's infection and sepsis, patient was treated on antibi otics and patient became very stable. DISCHARGE MEDICATIONS: Kindly refer to the electronic medical records for discharge medications. LABORATORY DATA: That was done in the hospital. The patient's white count was on average around 7s. The patient's hemoglobin was up and down, first was around 7 at baseline and dropped below 7. The patient was then transfused and hemoglobin was baseline around 9.5. Platelets were low and the patie nt was transfused some platelets to bring the platelets level up. Bone marrow biopsy that was done s howed neoplasm in the bone marrow. DISPOSITION: The patient was discharged in a good and stable condition. The encounter lasted for about 33 minutes.
== END 2018-04-11 18:16 | disposition home or self-care (01) | DRG 853 ==
LOC: ERS 12:46 → 2NO 18:58 → ONC 04-06 12:38
PROVIDERS: ADMIT Internal Medicine Infectious Disease; ATTEND Internal Medicine Infectious Disease
PROC: 0QB33ZX Excision of Left Pelvic Bone, Percutaneous Approach, Diagnostic (ICD-10-PCS; principal; 2018-04-05)
PROC: 07DR3ZX Extraction of Iliac Bone Marrow, Percutaneous Approach, Diagnostic (ICD-10-PCS; 2018-04-05)
DX: A41.9 Sepsis, unspecified organism (principal); J96.01 Acute respiratory failure with hypoxia; C90.00 Multiple myeloma not having achieved remission; N17.9 Acute kidney failure, unspecified; N39.0 Urinary tract infection, site not specified; E87.1 Hypo-osmolality and hyponatremia; E87.2 Acidosis; D69.6 Thrombocytopenia, unspecified; D63.8 Anemia in other chronic diseases classified elsewhere; F17.210 Nicotine dependence, cigarettes, uncomplicated; R60.9 Edema, unspecified; N93.9 Abnormal uterine and vaginal bleeding, unspecified; I12.9 Hypertensive chronic kidney disease with stage 1 through stage 4 chronic kidney disease, or unspecified chronic kidney disease; N18.9 Chronic kidney disease, unspecified; E87.5 Hyperkalemia; Z85.048 Personal history of other malignant neoplasm of rectum, rectosigmoid junction, and anus; Z93.3 Colostomy status
CPT/HCPCS: 20225; 36415; 36430; 71045; 74176; 77012; 77075; 80048; 80053; 80202; 81003; 81015; 82232; 82378; 82553; 82607; 82728; 82746; 83540; 83550; 83605; 83615; 83883; 84165; 84484; 84550; 85025; 85027; 85046; 85049; 85060; 85097; 85300; 85362; 85379; 85384; 85610; 85730; 86850; 86900; 86901; 87040; 87086; 88184; 88237; 88305; 88313; 93005; 96361; 96365; 96374; 96375; 96376; A4216; C9113; G8978-GP-CK; G8979-GP-CI; G8987-GO-CK; G8988-GO-CJ; J0692; J1100; J1940; J2250; J2270; J2405; J3010; J3370; J7050; P9016; P9035

== ENCOUNTER 2018-04-16 19:47 | Inpatient (IN) | payer OTHER ==
[~2018-04-16 19:47] MED LIST: Heparin 1,000 UNITS/ML VIAL ONE
[2018-04-16 20:34] LABS: Hemoglobin 6.6 g/dL (12.0-16.0); INR-International Normal Ratio 1.3; Mean Corpuscular HGB CONC 34.5 g/dL (32.0-36.0); Mean Corpuscular Hemoglobin 28.4 pg (27.0-31.0); Mean Corpuscular Volume 82.1 fL (78.0-98.0); Mean Platelet Volume 16.2 fL (7.4-10.4); Platelet Count 9 thou/uL (130-400); Prothrombin Time 16.2 SEC (12.0-14.7); RBC Distribution Width 18.6 % (11.5-14.5); Red Blood Cell (RBC) Count 2.32 mill/uL (4.20-5.40); White Blood Cell (WBC) Count 14.6 thou/uL (4.8-10.8)
[2018-04-16 20:35] LABS: PTT 33.9 SEC (22.9-36.1)
[2018-04-16 20:49] LABS: ALT (SGPT) 14 U/L (8-55); AST (SGOT) 24 U/L (5-34); Albumin 3.5 g/dL (3.5-5.0); Alkaline Phosphatase 89 U/L (40-150); Anion Gap 18 mmol/L (10-20); BUN (Urea Nitrogen) 12 mg/dL (9.8-20.1); Bilirubin, Total 1.2 mg/dL (0.2-1.2); Calc. Creatinine Clearance 0 mL/min (70-130); Calcium 9.9 mg/dL (7.8-10.44); Carbon Dioxide 23 mmol/L (22-29); Chloride 96 mmol/L (98-107); Estimated GFR-MDRD 57; Globulin 2.6 g/dL (2.4-3.5); Glucose 104 mg/dL (70-105); Potassium 3.6 mmol/L (3.5-5.1); Protein, Total 6.1 g/dL (6.0-8.3); Sodium 133 mmol/L (136-145)
--- NOTE | 2018-04-16 20:54 | RAD ---
CHEST ONE VIEW: History: Dyspnea. Weakness. Comparison: 04-03-18 FINDINGS: Cardiac silhouette is magnified by projection. Pulmonary vasculature is unremarkable. Mediastinum is midline. No lobar consolidation or evidence of pneumothorax. IMPRESSION: No active cardiopulmonary abnormalities are demonstrated. POS: [facility]
[2018-04-16 21:11] LABS: Anisocytosis SLIGHT = 6-15 cells (100X) (0-5/hpf); Band 11 % (5-11); Differential Comment Plasma-cytoid Cells; Eosinophils 1 % (0-10); Lymphocytes 34 % (21-51); MDiff Complete? YES; Metamyelocyte 1 % (0-0); Monocytes 15 % (0-10); Myelocyte 2 % (0-0); Neutrophil 31 % (42-75); Nucleated RBC 1 % (0); PLT Morphology Comment Appears Decreased; Target Cells SLIGHT = 2-5 cells (100X) (0-1/hpf)
[2018-04-16] MEDS ORDERED: HYDROcodone/Acetaminophen 10/325 mg Tablet ONE (22:43)
[2018-04-17] MEDS ORDERED: Ondansetron HCl/PF 4 MG/2 ML Vial IVP PRN (00:29)
[2018-04-17] MEDS ORDERED: Ondansetron ODT 4 MG TAB SL PRN (00:29)
[2018-04-17] MEDS ORDERED: HYDROcodone/Acetaminophen 5/325 mg Tablet PO PRN ×2 (00:29→13:14)
[2018-04-17] MEDS ORDERED: Acetaminophen 325 MG TAB PO PRN ×2 (00:29→13:14)
[2018-04-17] MEDS: HYDROcodone/Acetaminophen 5/325 mg Tablet PO PRN ×4 (01:27→20:57)
[2018-04-17 06:09] LABS: Hemoglobin 8.4 g/dL (12.0-16.0); Mean Corpuscular HGB CONC 35.1 g/dL (32.0-36.0); Mean Corpuscular Hemoglobin 28.7 pg (27.0-31.0); Mean Platelet Volume 11.4 fL (7.4-10.4); Platelet Count 29 thou/uL (130-400); RBC Distribution Width 16.9 % (11.5-14.5); Red Blood Cell (RBC) Count 2.93 mill/uL (4.20-5.40); White Blood Cell (WBC) Count 9.1 thou/uL (4.8-10.8)
[2018-04-17 06:44] LABS: Band 16 % (5-11); Differential Comment Plasma-cytoid Cells; Eosinophils 1 % (0-10); Lymphocytes 28 % (21-51); MDiff Complete? YES; Monocytes 21 % (0-10); Myelocyte 1 % (0-0); Neutrophil 26 % (42-75); PLT Morphology Comment Appears Decreased; Reactive Lymphocytes 4 % (0-10)
[2018-04-17] MEDS ORDERED: Prevnar 13-Val Conj/PF 0.5 ML SYRINGE IM ONE (09:00)
[2018-04-17] MEDS ORDERED: Bisacodyl 5 MG TAB PO PRN (13:14)
--- NOTE | 2018-04-17 13:51 | HP ---
DATE OF ADMISSION: 04/17/2018 PRIMARY CARE PROVIDER: Vinicio Cardoso M.D. CHIEF COMPLAINT: Generalized weakness. HISTORY OF PRESENT ILLNESS: Ms. Hernandez is a pleasant 58-year-old lady who was seen at [facility] on 04/17/2018. She was hospitalized at this facility from 04/03/2018 through 04/11/2018 for acute respiratory failur e with hypoxia, physical deconditioning and newly diagnosed multiple myeloma. She reports that she was doing well when she went home. [facility] [place] and had labs done. She was supposed to follow up for plan for chemotherapy. Over the last 2-3 days, she reports generalized weakness and fatigue. She also reports epistaxis and vaginal bleeding. She reports that she had vaginal bleeding and epistaxis in the past as well. She came to the emergency room because of generalized weakness. She denies any chest pain, shortness of breath, fevers or chills. She denies any abdominal pain. REVIEW OF SYSTEMS: All other systems reviewed and found to be negative. ALLERGIES: FENTANYL. CURRENT MEDICATIONS: Lisinopril 20 mg daily, [place] 10/325 mg every 4 hours as needed, chlorthalidone 12.5 mg daily. PAST MEDICAL HISTORY: Multiple myeloma, colorectal cancer and hypertension. PAST SURGICAL HISTORY: Colostomy, colon resection, section. PSYCHIATRIC HISTORY: Anxiety. SOCIAL HISTORY: The patient denies alcohol use or recreational drug use. She smokes 1 pack of cigar ettes a day. FAMILY HISTORY: No family history of premature coronary artery disease. PHYSICAL EXAMINATION: GENERAL: Ms. Hernandez is awake and alert, not in acute distress. VITAL SIGNS: Blood pressure is 107/53, pulse 85, respiratory rate 15 and oxygen saturation 98% on 3 liters of oxygen by nasal cannula. She is afebrile. EYES: No scleral icterus. She has conjunctival pallor. ENT: Moist mucosal membranes. No oropharyngeal erythema or exudates. NECK: Supple, nontender. Trachea is midline. RESPIRATORY: Accessory muscles of breathing are not active. Chest wall movements are symmetric bila terally. LUNGS: Clear to auscultation without wheeze, rhonchi or crepitations. CARDIOVASCULAR: S1 and S2 are heard, regular. Peripheral pulses palpable. No carotid bruit, no per icardial rub. ABDOMEN: Soft, distended, nontender. Bowel sounds are heard. No hepatomegaly, no splenomegaly. NEUROLOGIC: Cranial nerves II-XII intact. Deep tendon reflexes 2+. SKIN: No rashes or subcutaneous nodules. LYMPHATIC: No cervical lymphadenopathy. PSYCHIATRIC: Normal mood, normal affect. The patient is oriented to person, place and time. LABORATORY DATA: Ms. Hernandez's labs and investigations were reviewed. I reviewed her electrocardiogr am, which shows normal sinus rhythm, no ST changes to suggest an acute coronary syndrome. I also rev iewed her chest x-ray, which does not show any pulmonary infiltrates. She has decreased sodium of 13 3, normal potassium, elevated creatinine of 1.19, last known creatinine 0.81 on 04/11/2018, INR 1.3, white count 9100, hemoglobin 8.4, improved from 6.6 last night, platelet count 29,000, improved from 9000 last night and normal albumin level. Liver function tests are normal. ASSESSMENT AND PLAN: Ms. Hernandez is a pleasant 58-year-old lady who was seen at [facility] on 04/17/2018. Her problem list includes: 1. Symptomatic anemia: The patient is presenting with symptomatic anemia, likely secondary to epist axis and vaginal bleeding in the context of thrombocytopenia. We will admit her to the hospital. Sony osman has received platelet and packed RBC transfusions. We will consult Oncology for their opinion and help with further management. 2. Thrombocytopenia: The patient's platelet count has improved after platelet transfusion. We will follow platelet counts. 3. Acute kidney injury: Likely a combination of multiple myeloma and dehydration. We will provide the patient with gentle hydration and recheck creatinine level. 4. Hypertension: Monitor vital signs, titrate antihypertensives as needed. Hold chlorthalidone for now because of renal insufficiency. For the same reason, hold lisinopril as well. Many thanks for allowing me to participate in your patient's care. Please feel free to contact me wi th any questions or concerns. LEVEL OF RISK: High. LEVEL OF COMPLEXITY: High.
[2018-04-17] MEDS ORDERED: traMADol HCl 50 MG TAB PO PRN ×2 (14:40)
[2018-04-17] MEDS ORDERED: BORTEZOMIB SC SCH (15:30)
[2018-04-17] MEDS ORDERED: Dexamethasone 4 MG TAB PO SCH (15:30)
[2018-04-17] MEDS ORDERED: PRE FILLED SC SCH (15:30)
--- NOTE | 2018-04-17 17:07 | CON ---
DATE OF CONSULTATION: 04/17/2018 REASON FOR CONSULTATION: Multiple myeloma with thrombocytopenia. HISTORY OF PRESENT ILLNESS: Ms. Hernandez is a 58-year-old female who was diagnosed with multiple myeloma approximately 1 week ago. She was treated initially with a 4 day cycle of dexamethasone [address] Weir on Tuesday, 04/12. She is to start chemotherapy with Velcade, Revlimid and dexamethasone. At the time of diagnosis, she presented to this facility with bleeding and thrombocytopenia. She has received several units of platelets. She also had a pelvic fluid collection and vaginal bleeding that Dr. Contreras is following. She has a history of colon cancer with persistently elevated CEA. Yesterday, she began to have nosebleed, weakness, fatigue and pain. Her vaginal bleeding has been persistent. She presented to the emergency room. Her platelet count was 9,000, hgb was 6.6. She was admitted and transfused. We were asked to see the patient regarding her myeloma and low platelet count. PAST MEDICAL HISTORY: 1. Recently diagnosed multiple myeloma. 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 4. Hypertension. 5. pelvic fluid collection with vaginal bleeding. PAST SURGICAL HISTORY: 1. Colostomy. 2. Colon resection. 3. . ALLERGIES: FENTANYL. HOME MEDICATIONS: 1. Lisinopril 20 mg daily. 2. [place] 10/325 every 4 hours p.r.n. 3. Chlorthalidone 12.5 mg daily. FAMILY HISTORY: Mother had lung cancer. SOCIAL HISTORY: , has 3 children. Current every day smoker. No alcohol or illicit drug use. REVIEW OF SYSTEMS: Constitutional: No fever, chills, night sweats. Eyes: No blurred or double vision. ENT: No pain, hoarseness, sore throat, dysphagia. Cardiovascular: No chest pain, palpitations, syncope. Respiratory: No shortness of breath, dyspnea on exertion or orthopnea. Gastrointestinal: No nausea, vomiting, diarrhea, constipation or abdominal pain. Positive for loss of appetite. Genitourinary: No dysuria or hematuria. Musculoskeletal: Positive for joint and back pain. Skin: No rash or pruritus. Hematologic: Positive for bleeding. No bruising or clotting. Neurologic: Positive for weakness. No headache, numbness, tingling or seizure activity. Psychiatric: Positive for depression. PHYSICAL EXAMINATION: VITAL SIGNS: Temperature 99.0, pulse is 89, respiratory rate 20, BP is 117/56. She is 96% on 2 liters. GENERAL: Well-developed, well-nourished female, in no acute distress. HEENT: Normocephalic, atraumatic. Pupils equal and reactive to light. NECK: Supple. CARDIOVASCULAR: Regular rate and rhythm. LUNGS: Clear. ABDOMEN: Soft, nontender. Bowel sounds are positive. EXTREMITIES: No clubbing, cyanosis or edema. SKIN: No rash. HEMATOLOGIC: No petechia or purpura. NEUROLOGICAL: Nonfocal. PSYCHIATRIC: The patient is alert and oriented and appropriate. PERTINENT LABORATORY AND X-RAYS: Current WBCs are 9.1, hemoglobin 8.4, hematocrit 24.1, platelet count is 29,000. She got 26% neutrophils, 16% bands, 28% lymphocytes, 21% monocytes. PT 16.2, INR is 1.3, PTT 33.9. Chemistries, sodium 133, potassium 3.6, chloride 96, CO2 is 23, BUN is 12, creatinine 1.19, calcium is 9.9, total bilirubin is 1.2, AST 24, ALT is 14, alkaline phosphatase is 89. Serum total protein 6.1, albumin 3.5, globulin 2.6. Chest x-ray showed no acute process. ASSESSMENT: 1. Multiple myeloma, newly diagnosed. 2. 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 3. Bleeding secondary to chronic thrombocytopenia. DISCUSSION: The patient has been transfused 2 units of blood and 1 unit of platelets. We will begin her chemotherapy with SC injection of Velcade and dexamethasone 40mg today. Revlimid is an oral medication and we are waiting for delivery from a specialty pharmacy. She needs daily Valtrex while on Velcade. We will monitor her CBC daily and transfuse p.r.n. I will adjust her pain medicine as she complains of joint and back pain. We will follow her hospital course closely. Thank you for the consult. TREY
[2018-04-18 05:37] LABS: Platelet Count 18 thou/uL (130-400)
[2018-04-18 05:42] LABS: Anion Gap 15 mmol/L (10-20); BUN (Urea Nitrogen) 37 mg/dL (9.8-20.1); Calc. Creatinine Clearance 27 mL/min (70-130); Calcium 9.4 mg/dL (7.8-10.44); Carbon Dioxide 23 mmol/L (22-29); Chloride 95 mmol/L (98-107); Estimated GFR-MDRD 18; Glucose 218 mg/dL (70-105); Potassium 4.1 mmol/L (3.5-5.1); Sodium 129 mmol/L (136-145)
[2018-04-18 06:55] LABS: Anisocytosis SLIGHT = 6-15 cells (100X) (0-5/hpf); Band 23 % (5-11); Eosinophils 1 % (0-10); Hemoglobin 8.9 g/dL (12.0-16.0); Lymphocytes 32 % (21-51); MDiff Complete? YES; Mean Corpuscular HGB CONC 35.2 g/dL (32.0-36.0); Mean Corpuscular Hemoglobin 28.5 pg (27.0-31.0); Mean Platelet Volume 13.9 fL (7.4-10.4); Metamyelocyte 2 % (0-0); Monocytes 10 % (0-10); Myelocyte 1 % (0-0); Neutrophil 29 % (42-75); PLT Morphology Comment Appears Decreased; RBC Distribution Width 17.1 % (11.5-14.5); Reactive Lymphocytes 2 % (0-10)
[2018-04-18] MEDS: valACYclovir 500 MG TAB PO SCH (09:53)
[2018-04-18] MEDS: HYDROcodone/Acetaminophen 5/325 mg Tablet PO PRN ×2 (10:06→20:37)
--- NOTE | 2018-04-18 16:18 | PDOC.PN ---
- Subjective Encounter Start Date: 04/18/18 Encounter Start Time: 12:00 Patient is seen today, alert and oriented. No other COncernsnoted. She continuos to have vaginal bleeding - Objective Vital Signs & Weight: Vital Signs (12 hours) Temp Pulse Resp BP Pulse Ox 04/18/18 15:40 98.0 F 80 16 128/61 97 04/18/18 10:40 98.0 F 87 20 112/56 L 97 04/18/18 07:35 97.9 F 83 16 133/58 L 95 04/18/18 05:21 97.5 F L 82 16 110/59 L 97 Weight Weight 210 lb 1.6 oz I&O: 04/17/18 04/18/18 04/19/18 06:59 06:59 06:59 Intake Total 350 240 Output Total 200 Balance 350 40 Result Diagrams: 04/18/18 04:24 04/18/18 04:24 Radiology Reviewed by me: Yes Phys Exam - Physical Examination HEENT: PERRLA, moist MMs Neck: no nodes, no JVD Respiratory: no wheezing, no rales Cardiovascular: RRR, no significant murmur Gastrointestinal: soft, non-tender Musculoskeletal: no edema, pulses present Neurological: non-focal, normal sensation Lymphatic: no nodes Dx/Plan (1) Anemia associated with acute blood loss Code(s): D62 - ACUTE POSTHEMORRHAGIC ANEMIA Status: Acute Comment: Will closley Monitor will repeat CBC later this Afternoon, transfuse if < 7. Source of Bleeding is vaginal and Epistaxis. Likely from Thrombocytopenia for MM. (2) Anemia in chronic illness Code(s): D63.8 - ANEMIA IN OTHER CHRONIC DISEASES CLASSIFIED ELSEWHERE Status : Acute Comment: s/p 2 units. h/h is stable now. (3) Edema Code(s): R60.9 - EDEMA, UNSPECIFIED Status: Acute Comment: Continue Po lasix (4) Multiple myeloma Code(s): C90.00 - MULTIPLE MYELOMA NOT HAVING ACHIEVED REMISSION Status: Acute Comment: chemo per oncology service, consulted. (5) Thrombocytopenia Code(s): D69.6 - THROMBOCYTOPENIA, UNSPECIFIED Status: Acute Comment: will transfuse 2 unit of platelets if <10 (6) HTN (hypertension) Code(s): I10 - ESSENTIAL (PRIMARY) HYPERTENSION Status: Chronic Comment: controlled - Plan cont current plan of care, PT/OT, social work faculty member, respiratory therapy, DVT proph w/SCDs * . Review of Systems - Review of Systems Constitutional: negative: fever, chills, sweats, weakness, malaise, other Eyes: negative: Pain, Vision Change, Conjunctivae Inflammation, Eyelid Inflammation, Redness, Other Respiratory: negative: Cough, Dry, Shortness of Breath, Hemoptysis, SOB with Excertion, Pleuritic Pain, Sputum, Wheezing Cardiovascular: negative: chest pain, palpitations, orthopnea, paroxysmal nocturnal dyspnea, edema, light headedness, other Gastrointestinal: negative: Nausea, Vomiting, Abdominal Pain, Diarrhea, Constipation, Melena, Hematochezia, Other Musculoskeletal: negative: Neck Pain, Shoulder Pain, Arm Pain, Back Pain, Hand Pain, Leg Pain, Foot Pain, Other - Medications/Allergies Allergies/Adverse Reactions: Allergies Allergy/AdvReac Type Severity Reaction Status Date / Time fentanyl Allergy Verified 04/03/18 22:00 Medications: Current Medications Acetaminophen (Tylenol) 650 mg PO Q4H PRN PRN Reason: Headache/Fever or Pain Hydrocodone Bitart/Acetaminophen ([place] 5/325) 2 tab PO Q4H PRN PRN Reason: Moderate to Severe Pain (6-10) Last Admin: 04/18/18 10:06 Dose: 2 tab Bisacodyl (Dulcolax) 10 mg PO DAILYPRN PRN PRN Reason: Constipation Tramadol HCl (Ultram) 50 mg PO Q6H PRN PRN Reason: Mild-Moderate Pain (1-5) Tramadol HCl (Ultram) 100 mg PO Q6H PRN PRN Reason: Moderate to Severe Pain (6-10) Valacyclovir [facility] (Valtrex) [facility] Last Admin: 04/18/18 09:53 Dose: 500 mg
[2018-04-18 17:39] LABS: Hemoglobin 9.5 g/dL (12.0-16.0); Mean Corpuscular Hemoglobin 27.7 pg (27.0-31.0); Mean Corpuscular Volume 84.2 fL (78.0-98.0); Mean Platelet Volume 14.4 fL (7.4-10.4); Platelet Count 26 thou/uL (130-400); RBC Distribution Width 17.7 % (11.5-14.5); Red Blood Cell (RBC) Count 3.43 mill/uL (4.20-5.40); White Blood Cell (WBC) Count 9.5 thou/uL (4.8-10.8)
[2018-04-18 18:04] LABS: Anisocytosis SLIGHT = 6-15 cells (100X) (0-5/hpf); Band 11 % (5-11); Eosinophils 1 % (0-10); Lymphocytes 48 % (21-51); MDiff Complete? YES; Monocytes 6 % (0-10); Neutrophil 33 % (42-75); PLT Morphology Comment Appears Decreased
[2018-04-18] MEDS ORDERED: Pantoprazole 40 MG VIAL IVP SCH (18:30)
[2018-04-18] MEDS: Sucralfate 1 GM TAB PO SCH (20:37)
[2018-04-19 05:22] LABS: ALT (SGPT) 13 U/L (8-55); AST (SGOT) 10 U/L (5-34); Albumin 3.3 g/dL (3.5-5.0); Alkaline Phosphatase 81 U/L (40-150); Anion Gap 20 mmol/L (10-20); BUN (Urea Nitrogen) 59 mg/dL (9.8-20.1); Bilirubin, Total 0.5 mg/dL (0.2-1.2); Calc. Creatinine Clearance 22 mL/min (70-130); Calcium 8.5 mg/dL (7.8-10.44); Carbon Dioxide 19 mmol/L (22-29); Chloride 95 mmol/L (98-107); Estimated GFR-MDRD 13; Globulin 2.9 g/dL (2.4-3.5); Glucose 137 mg/dL (70-105); Potassium 3.8 mmol/L (3.5-5.1); Protein, Total 6.2 g/dL (6.0-8.3); Sodium 130 mmol/L (136-145)
[2018-04-19 05:29] LABS: Platelet Count 11 thou/uL (130-400)
[2018-04-19 05:36] LABS: Hemoglobin 8.5 g/dL (12.0-16.0); Mean Corpuscular HGB CONC 34.5 g/dL (32.0-36.0); Mean Corpuscular Hemoglobin 28.1 pg (27.0-31.0); Mean Corpuscular Volume 81.4 fL (78.0-98.0); RBC Distribution Width 17.5 % (11.5-14.5); Red Blood Cell (RBC) Count 3.03 mill/uL (4.20-5.40); White Blood Cell (WBC) Count 8.3 thou/uL (4.8-10.8)
[2018-04-19 05:41] LABS: Band 13 % (5-11); Differential Comment Plasma-cytoid Cells; Lymphocytes 17 % (21-51); MDiff Complete? YES; Metamyelocyte 2 % (0-0); Monocytes 17 % (0-10); Neutrophil 46 % (42-75); Nucleated RBC 2 % (0); Reactive Lymphocytes 1 % (0-10)
[2018-04-19] MEDS: HYDROcodone/Acetaminophen 5/325 mg Tablet PO PRN ×2 (08:34→21:26)
[2018-04-19] MEDS: Pantoprazole 40 MG VIAL IVP SCH (08:35)
[2018-04-19] MEDS: Sucralfate 1 GM TAB PO SCH ×4 (08:35→21:26)
[2018-04-19] MEDS: valACYclovir 500 MG TAB PO SCH (09:20)
[2018-04-19 16:00] LABS: Hemoglobin 9.1 g/dL (12.0-16.0); Mean Corpuscular HGB CONC 35.4 g/dL (32.0-36.0); Mean Corpuscular Hemoglobin 28.7 pg (27.0-31.0); Mean Corpuscular Volume 80.9 fL (78.0-98.0); Mean Platelet Volume 12.3 fL (7.4-10.4); Platelet Count 33 thou/uL (130-400); RBC Distribution Width 17.6 % (11.5-14.5); Red Blood Cell (RBC) Count 3.18 mill/uL (4.20-5.40); White Blood Cell (WBC) Count 9.6 thou/uL (4.8-10.8)
--- NOTE | 2018-04-19 16:03 | EKG ---
Test Reason : Blood Pressure : / mmHG Vent. Rate : 100 BPM Atrial Rate : 100 BPM P-R Int : 122 ms QRS Dur : 082 ms QT Int : 344 ms P-R-T Axes : 052 036 056 degrees QTc Int : 443 ms Normal sinus rhythm Normal ECG Confirmed by EUGENIA PEREZ MD ([id number]), news assignment editor DENISE BECERRIL ([id number]) on 04/19/2018 4:02:49 PM Referred By: Confirmed By:EUGENIA PEREZ MD
[2018-04-19 16:21] LABS: Anisocytosis SLIGHT = 6-15 cells (100X) (0-5/hpf); Band 13 % (5-11); Burr Cells SLIGHT = 2-5 cells (100X) (0-1/hpf); Eosinophils 1 % (0-10); Lymphocytes 14 % (21-51); MDiff Complete? YES; Metamyelocyte 2 % (0-0); Monocytes 11 % (0-10); Neutrophil 57 % (42-75); Nucleated RBC 1 % (0); PLT Morphology Comment Appears Decreased; Polychromasia SLIGHT = 2-3 cells (100X) (0-2/hpf); Reactive Lymphocytes 2 % (0-10); Spherocytes SLIGHT = 1-5 cells (100X) (None Seen); Tear Drops SLIGHT = 2-5 cells (100X) (0-1/hpf)
[2018-04-19] MEDS: Sodium Chloride 0.9% 1,000 ML IV SCH (16:42)
--- NOTE | 2018-04-19 18:10 | ULT ---
ULTRASOUND RENAL BILATERAL STANDARD 04/19/18 HISTORY: Acute kidney injury. COMPARISON: None. FINDINGS: Right kidney measures 12.5 x 5.6 x 5.8 cm and left kidney measures 11.6 x 5.9 x 6.3 cm. No renal mass , hydronephrosis, or abnormal calcifications. The urinary bladder not seen. IMPRESSION: Nonvisualization of the urinary bladder. No evidence for obstructive uropathy. POS: [facility]
[2018-04-19 19:11] LABS: Creatinine, Urine 75.68 mg/dL (47-110)
--- NOTE | 2018-04-19 21:21 | CON ---
DATE OF CONSULTATION: 04/19/2018 CONSULTING PHYSICIAN: Dr. Bettye Zheng. REASON FOR CONSULTATION: Acute kidney injury. REASON FOR ADMISSION: Weakness. HSTORY OF PRESENT ILLNESS: A 58-year-old -Filipino female with history of multiple myeloma, c olorectal cancer, hypertension, who came to the hospital with weakness and has been treating here. P crescencio's initial creatinine was 1.1, but before that was 0.8, which is her baseline, 2 weeks back. T his morning, it was found to be 4.22 with a BUN of 59 and Nephrology is consulted. Patient denies an y nausea, vomiting, diarrhea, but was having some vaginal bleeding and epistaxis, and she is being tr eated. Patient also having poor appetite and intake has been poor. She denies any urinary problems. She is making good amount of urine per her history and reports dark colored urine. No chest pain, no palpitation, no fever or chills. PAST MEDICAL HISTORY: Positive for multiple myeloma, colorectal cancer, hypertension. PAST SURGICAL HISTORY: Colostomy, colon resection, and . HOME MEDICATIONS: Chlorthalidone, [place], and lisinopril. ALLERGIES: FENTANYL. SOCIAL HISTORY: No smoking, alcohol, or illicit drug abuse. She smokes 1 pack of cigarettes per day . No alcohol or illicit drug abuse. FAMILY HISTORY: No history of any kidney disease. REVIEW OF SYSTEMS: The following complete review of systems was negative, unless otherwise mentioned in the HPI or below: Constitutional: Weight loss or gain, ability to conduct usual activities. Sk in: Rash, itching. Eyes: Double vision, pain. ENT/Mouth: Nose bleeding, neck stiffness, pain, te nderness. Cardiovascular: Palpitations, dyspnea on exertion, orthopnea. Respiratory: Shortness of breath, wheezing, cough, hemoptysis, fever, or night sweats. Gastrointestinal: Poor appetite, abdo christopher pain, heartburn, nausea, vomiting, constipation, or diarrhea. Genitourinary: Urgency, frequen cy, dysuria, nocturia. Musculoskeletal: Pain, swelling. Neurologic/Psychiatric: Anxiety, depressi on. Allergy/Immunologic: Skin rash, bleeding tendency. PHYSICAL EXAMINATION: GENERAL: This is a well-built female in no apparent distress. VITAL SIGNS: Temperature 99.0, pulse 94, respiratory rate 18, blood pressure 146/82. HEENT: Atraumatic, normocephalic. Oral mucosa is dry. NECK: Supple. CV: S1, S2 heard. Rate and rhythm regular. RESPIRATORY: Clear. GI: Abdomen is obese, soft. MUSCULOSKELETAL: 1+ edema. DERMATOLOGIC: No skin rash. NEUROLOGIC: Alert, awake. PSYCHIATRIC: Normal mood and affect. LABORATORY DATA AND X-RAY FINDINGS: Hemoglobin is 9.1, platelets is 33. Potassium 3.8, BUN is 59, c reatinine is 4.2, albumin is 3.3. ASSESSMENT AND PLAN: 1. Acute kidney injury most likely volume depletion. We will check renal ultrasound. We will start on IV fluids NS at 125 mL per hour. 2. Hyponatremia. We will start IV fluids. 3. Metabolic acidosis. 4. Hypoalbuminemia. We will check urine protein to creatinine ratio. 5. History of multiple myeloma. 6. Anemia, better after transfusion. 7. Thrombocytopenia with vaginal bleeding and epistaxis. 8. Follow up with Hematology/Oncology. 9. Hypertension, stable. 10. Edema, controlled. Plan is to start IV fluids, check renal ultrasound, check urine protein to creatinine ratio. Avoid n ephrotoxins, renally dose all the medication. Medication list reviewed and we will continue to michael rollins. Thank you for the consult.
[2018-04-20] MEDS: Sodium Chloride 0.9% 1,000 ML IV SCH ×3 (00:58→17:51)
[2018-04-20 06:18] LABS: Anion Gap 18 mmol/L (10-20); BUN (Urea Nitrogen) 64 mg/dL (9.8-20.1); Calc. Creatinine Clearance 21 mL/min (70-130); Calcium 8.4 mg/dL (7.8-10.44); Carbon Dioxide 19 mmol/L (22-29); Chloride 98 mmol/L (98-107); Estimated GFR-MDRD 12; Glucose 75 mg/dL (70-105); Potassium 3.4 mmol/L (3.5-5.1); Sodium 132 mmol/L (136-145)
[2018-04-20 06:23] LABS: Platelet Count 25 thou/uL (130-400)
--- NOTE | 2018-04-20 06:32 | PDOC.PN ---
- Subjective Encounter Start Date: 04/19/18 Encounter Start Time: 15:00 Patient is seen today, noted worseing renal fucntions likely from MM. Patirent has persistant vaginal bleeding. she denies any headache or SOB. - Objective MAR Reviewed: Yes Vital Signs & Weight: Vital Signs (12 hours) Temp Pulse Resp BP Pulse Ox 04/20/18 03:30 97.7 F 92 16 138/62 95 04/19/18 23:15 141/66 H 04/19/18 20:00 98.6 F 90 14 157/67 H 99 Weight Weight 210 lb 1.6 oz I&O: 04/18/18 04/19/18 04/20/18 06:59 06:59 06:59 Intake Total 347 737 0885 Output Total 200 100 580 Balance 40 380 928 Result Diagrams: 04/20/18 05:31 04/20/18 05:31 Radiology Reviewed by me: Yes Phys Exam - Physical Examination HEENT: PERRLA, moist MMs Neck: no nodes, no JVD Respiratory: no wheezing, no rales Cardiovascular: RRR, no significant murmur Gastrointestinal: no distention Musculoskeletal: edema present Neurological: non-focal, normal sensation Psychiatric: normal affect, A&O x 3 Dx/Plan (1) Anemia associated with acute blood loss Code(s): D62 - ACUTE POSTHEMORRHAGIC ANEMIA Status: Acute Comment: Will closley Monitor will repeat CBC later this Afternoon, transfuse if < 7. Source of Bleeding is vaginal and Epistaxis. Likely from Thrombocytopenia for MM. (2) Anemia in chronic illness Code(s): D63.8 - ANEMIA IN OTHER CHRONIC DISEASES CLASSIFIED ELSEWHERE Status : Acute Comment: s/p 2 units. h/h is stable now. (3) Edema Code(s): R60.9 - EDEMA, UNSPECIFIED Status: Acute Comment: Continue Po lasix (4) Multiple myeloma Code(s): C90.00 - MULTIPLE MYELOMA NOT HAVING ACHIEVED REMISSION Status: Acute Comment: chemo per oncology service, consulted. (5) Thrombocytopenia Code(s): D69.6 - THROMBOCYTOPENIA, UNSPECIFIED Status: Acute Comment: will transfuse 2 unit of platelets if <10 (6) HTN (hypertension) Code(s): I10 - ESSENTIAL (PRIMARY) HYPERTENSION Status: Chronic Comment: controlled (7) DAISY (acute kidney injury) Code(s): N17.9 - ACUTE KIDNEY FAILURE, UNSPECIFIED Status: Acute Comment: Nephrology is consulted Dr. Velasquez, discussed, planned for IV hydration. - Plan cont current plan of care, PT/OT, incentive spirometry, DVT proph w/heparin * . Review of Systems - Review of Systems Constitutional: negative: fever, chills, sweats, weakness, malaise, other Eyes: negative: Pain, Vision Change, Conjunctivae Inflammation, Eyelid Inflammation, Redness, Other ENT: negative: Ear Pain, Ear Discharge, Nose Pain, Nose Discharge, Nose Congestion, Mouth Pain, Mouth Swelling, Throat Pain, Throat Swelling, Other Respiratory: negative: Cough, Dry, Shortness of Breath, Hemoptysis, SOB with Excertion, Pleuritic Pain, Sputum, Wheezing Cardiovascular: negative: chest pain, palpitations, orthopnea, paroxysmal nocturnal dyspnea, edema, light headedness, other Musculoskeletal: negative: Neck Pain, Shoulder Pain, Arm Pain, Back Pain, Hand Pain, Leg Pain, Foot Pain, Other - Medications/Allergies Allergies/Adverse Reactions: Allergies Allergy/AdvReac Type Severity Reaction Status Date / Time fentanyl Allergy Verified 04/03/18 22:00 Medications: Current Medications Acetaminophen (Tylenol) 650 mg PO Q4H PRN PRN Reason: Headache/Fever or Pain Hydrocodone Bitart/Acetaminophen ([place] 5/325) 2 tab PO Q4H PRN PRN Reason: Moderate to Severe Pain (6-10) Last Admin: 04/19/18 21:26 Dose: 2 tab Bisacodyl (Dulcolax) 10 mg PO DAILYPRN PRN PRN Reason: Constipation Sodium Chloride (Normal Saline 0.9%) 1,000 mls @ 125 mls/hr IV .Q8H DANIEL Last Admin: 04/20/18 00:58 Dose: 1,000 mls Pantoprazole Sodium (Protonix) 40 mg IVP QAM DANIEL Last Admin: 04/19/18 08:35 Dose: 40 mg Sodium Chloride (Flush - Normal Saline) 10 ml IVF PRN PRN PRN Reason: Saline Flush Last Admin: 04/19/18 08:35 Dose: 10 ml Sucralfate (Carafate) 1 gm PO ACHS DANIEL Last Admin: 04/19/18 21:26 Dose: 1 gm Tramadol HCl (Ultram) 50 mg PO Q6H PRN PRN Reason: Mild-Moderate Pain (1-5) Tramadol HCl (Ultram) 100 mg PO Q6H PRN PRN Reason: Moderate to Severe Pain (6-10) Valacyclovir HCl (Valtrex) 500 mg PO [facility] Last Admin: 04/19/18 09:20 Dose: 500 mg
[2018-04-20 06:41] LABS: Band 11 % (5-11); Eosinophils 1 % (0-10); Hemoglobin 9.3 g/dL (12.0-16.0); Hypochromia SLIGHT = 6-15 cells (100X) (0-5/hpf); Lymphocytes 41 % (21-51); MDiff Complete? YES; Mean Corpuscular HGB CONC 34.5 g/dL (32.0-36.0); Mean Corpuscular Hemoglobin 28.1 pg (27.0-31.0); Mean Corpuscular Volume 81.5 fL (78.0-98.0); Mean Platelet Volume 14.5 fL (7.4-10.4); Monocytes 12 % (0-10); Neutrophil 35 % (42-75); Nucleated RBC 2 % (0); PLT Morphology Comment Appears Decreased; RBC Distribution Width 17.9 % (11.5-14.5); Red Blood Cell (RBC) Count 3.31 mill/uL (4.20-5.40); White Blood Cell (WBC) Count 9.9 thou/uL (4.8-10.8)
[2018-04-20] MEDS: valACYclovir 500 MG TAB PO SCH (08:37)
[2018-04-20] MEDS: Sucralfate 1 GM TAB PO SCH ×4 (08:37→20:55)
[2018-04-20] MEDS: Pantoprazole 40 MG VIAL IVP SCH (08:38)
[2018-04-20] MEDS: HYDROcodone/Acetaminophen 5/325 mg Tablet PO PRN ×2 (08:43→20:34)
[2018-04-20] MEDS ORDERED: Potassium Chloride 20 MEQ TAB PO SCH (10:30)
--- NOTE | 2018-04-20 10:35 | PRG ---
Patient Name: MARÍA ELENA NUÑEZ Date of service: 04/20/2018 Subjective: Patient was seen and examined at bedside and overnight events noted. Patient denies any shortness of breath or chest pain or palpitation. No history of nausea or vomiting or diarrhea or fever or chills or cramps. Objective: General: This is an obese female in no apparent distress. Vital signs: Temperature 98.7, pulse 94, respiratory rate 18, blood pressure 137/62. HEENT: Atraumatic, normocephalic. Oral mucosa is moist. Neck: Supple. Cardiovascular: S1 S2 heard. Rate and rhythm regular. Respiratory: Clear to auscultation. Gastrointestinal: Abdomen is soft. Musculoskeletal: No tenderness. No edema. Dermatologic: No skin rash. Neurologic: Alert and awake and oriented X3. No focal neurologic deficits. Moving all the extremit ies. Psychiatric: Mood and affect normal. LABORATORY DATA: Potassium is 3.4, BUN 64, creatinine is 4.4. ASSESSMENT AND PLAN: 1. Acute kidney injury. Creatinine getting worse, but seems like may be slowing down compared to . Plan is to continue on IV fluids 1 more day to monitor renal function. No significant prot einuria. Renal ultrasound with no obstruction. 2. Hypokalemia. I will cautiously replace. 3. Hyponatremia, better. 4. Metabolic acidosis, stable. 5. Hypoalbuminemia. 6. History of multiple myeloma. No significant proteinuria. Proteinuria seems to be less than 1 gr am. 7. Hypertension. 8. Edema, controlled. 9. We will monitor renal function closely. Prognosis is guarded.
[2018-04-20] MEDS ORDERED: Ondansetron ODT 4 MG TAB PO PRN (11:15)
--- NOTE | 2018-04-20 11:17 | PDOC.PN ---
- Subjective Encounter Start Date: 04/20/18 Encounter Start Time: 11:16 Ms. Hernandez was seen today in follow-upof Multiple Myeloma, and acute renal failure. She is complaining of feeling nauseated, and complains of pain primarily in the lower back, which is about an 8/10. It is a bit better than yesterday. - Objective MAR Reviewed: Yes Vital Signs & Weight: Vital Signs (12 hours) Temp Pulse Resp BP Pulse Ox 04/20/18 11:01 98.4 F 97 16 156/69 H 94 L 04/20/18 07:22 98.0 F 94 18 137/62 93 L 04/20/18 03:30 97.7 F 92 16 138/62 95 Weight Weight 210 lb 1.6 oz I&O: 04/19/18 04/20/18 04/21/18 06:59 06:59 06:59 Intake Total 480 1508 Output Total 100 580 Balance 380 928 Result Diagrams: 04/20/18 05:31 04/20/18 05:31 Phys Exam - Physical Examination HEENT: PERRLA Respiratory: no wheezing, no rales, no rhonchi, clear to auscultation bilateral Cardiovascular: RRR, no significant murmur, no rub Gastrointestinal: soft, positive bowel sounds Musculoskeletal: edema present 2+ pitting edema of the ankles Dx/Plan (1) DAISY (acute kidney injury) Code(s): N17.9 - ACUTE KIDNEY FAILURE, UNSPECIFIED Status: Acute Comment: Nephrology is consulted Dr. Velasquez, discussed, planned for IV hydration. (2) Anemia in chronic illness Code(s): D63.8 - ANEMIA IN OTHER CHRONIC DISEASES CLASSIFIED ELSEWHERE Status : Acute Comment: s/p 2 units. h/h is stable now. (3) Multiple myeloma Code(s): C90.00 - MULTIPLE MYELOMA NOT HAVING ACHIEVED REMISSION Status: Acute Comment: chemo per oncology service, consulted. (4) Physical deconditioning Code(s): R53.81 - OTHER MALAISE Status: Acute (5) Thrombocytopenia Code(s): D69.6 - THROMBOCYTOPENIA, UNSPECIFIED Status: Acute Comment: will transfuse 2 unit of platelets if <10 (6) HTN (hypertension) Code(s): I10 - ESSENTIAL (PRIMARY) HYPERTENSION Status: Chronic Comment: controlled - Plan * Multiple Myeloma with anemia, and Thrombocytopenia- She has been started on Velcade, and Decadron * Will transfuse platelets as needed, for bleeding, or count below 10K * Acute kidney injury- ? volume depletion vs. Myeloma- Nephrology managing * HTN- blood pressure is stable.
[2018-04-21] MEDS: Sodium Chloride 0.9% 1,000 ML IV SCH ×3 (02:24→12:40)
[2018-04-21 05:42] LABS: Anion Gap 19 mmol/L (10-20); BUN (Urea Nitrogen) 61 mg/dL (9.8-20.1); Calc. Creatinine Clearance 22 mL/min (70-130); Calcium 8.9 mg/dL (7.8-10.44); Carbon Dioxide 16 mmol/L (22-29); Chloride 102 mmol/L (98-107); Estimated GFR-MDRD 13; Glucose 63 mg/dL (70-105); Potassium 3.9 mmol/L (3.5-5.1); Sodium 133 mmol/L (136-145)
[2018-04-21] MEDS: valACYclovir 500 MG TAB PO SCH (09:37)
[2018-04-21] MEDS: Sucralfate 1 GM TAB PO SCH ×4 (09:37→20:46)
[2018-04-21] MEDS ORDERED: Amlodipine 5 MG TAB PO SCH ×2 (09:47→10:00)
--- NOTE | 2018-04-21 10:01 | PDOC.PN ---
- Subjective Encounter Start Date: 04/21/18 Encounter Start Time: 10:00 Ms. Hernandez was seen for follow-up of acute renal failure, and multiple myeloma. - Objective MAR Reviewed: Yes Vital Signs & Weight: Vital Signs (12 hours) Temp Pulse Resp BP Pulse Ox 04/21/18 07:33 98.6 F 107 H 19 170/70 H 94 L 04/21/18 05:00 98.3 F 103 H 16 150/65 H 98 04/21/18 04:00 98.3 F 103 H 150/65 H 98 04/21/18 00:15 98.1 F 94 16 148/68 H 92 L Weight Weight 214 lb I&O: 04/20/18 04/21/18 04/22/18 06:59 06:59 06:59 Intake Total 1508 1051 Output Total 580 725 Balance 928 326 Result Diagrams: 04/20/18 05:31 04/21/18 05:08 Phys Exam - Physical Examination HEENT: PERRLA Respiratory: no wheezing, no rales, no rhonchi, clear to auscultation bilateral Cardiovascular: RRR, no significant murmur, no rub Gastrointestinal: soft, non-tender, positive bowel sounds Musculoskeletal: edema present 2+ pitting edema of the lower extremities Dx/Plan (1) DAISY (acute kidney injury) Code(s): N17.9 - ACUTE KIDNEY FAILURE, UNSPECIFIED Status: Acute Comment: Nephrology is consulted Dr. Velasquez, discussed, planned for IV hydration. (2) Anemia in chronic illness Code(s): D63.8 - ANEMIA IN OTHER CHRONIC DISEASES CLASSIFIED ELSEWHERE Status : Acute Comment: s/p 2 units. h/h is stable now. (3) Multiple myeloma Code(s): C90.00 - MULTIPLE MYELOMA NOT HAVING ACHIEVED REMISSION Status: Acute Comment: chemo per oncology service, consulted. (4) Physical deconditioning Code(s): R53.81 - OTHER MALAISE Status: Acute (5) Thrombocytopenia Code(s): D69.6 - THROMBOCYTOPENIA, UNSPECIFIED Status: Acute Comment: will transfuse 2 unit of platelets if <10 (6) HTN (hypertension) Code(s): I10 - ESSENTIAL (PRIMARY) HYPERTENSION Status: Chronic Comment: controlled - Plan * Acute on chronic kidney disease- renal function has plateaued- a Picc line has been ordered to re-establish IV access, to continue IV fluids * Myeloma- continue Velcade and steroids * HTN- blood pressure is elevated- Lisinopril is on hold due to her renal function- will add Amlodipine * Back pain- improved.
--- NOTE | 2018-04-21 12:47 | SPC ---
ULTRASOUND AND FLUOROSCOPIC GUIDED PICC LINE PLACEMENT: HISTORY: Long-term IV antibiotics. COMPARISON: None. TECHNIQUE/FINDINGS: The patient was brought to the special suite. All questions were answered. The patient's left arm was prepped and draped in the normal sterile fashion. Informed consent was ob tained. A time-out was performed. The patient's left cephalic vein was accessed using a micropuncture set. Over a wire and through a p eel-away sheath, a 42 cm double-lumen PICC was placed. The patient tolerated the procedure well with out complications. FLUOROSCOPY TIME: 0.4 minutes. IMPRESSION: Technically successful fluoroscopic and ultrasound guided left cephalic peripherally inserted central catheter placement. FLuoro time: 0.4 minutes POS: [facility]
[2018-04-21 13:18] LABS: Hemoglobin 6.8 g/dL (12.0-16.0); Mean Corpuscular HGB CONC 35.4 g/dL (32.0-36.0); Mean Corpuscular Hemoglobin 28.4 pg (27.0-31.0); Mean Corpuscular Volume 80.2 fL (78.0-98.0); Mean Platelet Volume 15.9 fL (7.4-10.4); Platelet Count 13 thou/uL (130-400); RBC Distribution Width 17.6 % (11.5-14.5); Red Blood Cell (RBC) Count 2.41 mill/uL (4.20-5.40)
[2018-04-21 13:37] LABS: Anisocytosis SLIGHT = 6-15 cells (100X) (0-5/hpf); Band 11 % (5-11); Differential Comment Plasma-cytoid Cells; Eosinophils 3 % (0-10); Lymphocytes 25 % (21-51); MDiff Complete? YES; Metamyelocyte 2 % (0-0); Monocytes 15 % (0-10); Myelocyte 3 % (0-0); Neutrophil 33 % (42-75); Nucleated RBC 2 % (0); PLT Morphology Comment Appears Decreased; Polychromasia SLIGHT = 2-3 cells (100X) (0-2/hpf); Reactive Lymphocytes 4 % (0-10); White Blood Cell (WBC) Count 11.9 thou/uL (4.8-10.8)
--- NOTE | 2018-04-21 18:55 | PRG ---
DATE OF SERVICE: 04/21/2018 SUBJECTIVE: Patient was seen and examined at bedside and overnight events noted. Patient denies any shortness of breath or chest pain or palpitation. No history of nausea or vomiting or diarrhea or f ever or chills or cramps. OBJECTIVE: GENERAL: This is an obese female in no apparent distress. VITAL SIGNS: Temperature 97.8, pulse 106, respiratory rate , blood pressure 169/72. HEENT: Atraumatic, normocephalic. Oral mucosa is moist NECK: Supple CARDIOVASCULAR: S1, S2 heard. Rate and rhythm regular. RESPIRATORY: Clear to auscultation. GASTROINTESTINAL: Abdomen is soft. MUSCULOSKELETAL: No tenderness, no edema. DERMATOLOGIC: No skin rash. NEUROLOGIC: Alert, awake, and oriented x3. No focal neurologic deficits. Moving all the extremitie s. PSYCHIATRIC: Mood and affect normal. LABORATORY DATA: Potassium 3.9, BUN is 61, creatinine is 4.2. ASSESSMENT AND PLAN: 1. Acute kidney injury most likely from volume depletion, getting better with IV fluids. The patien t was not able to much IV fluids yesterday. We will reduce IV fluids to 75 mL per hour. We wi ll continue as tolerated. 2. Edema. 3. Hypokalemia. Replace. 4. Metabolic acidosis. 5. History of multiple myeloma. 6. Hypertension. Titrate medication. Plan is to continue IV fluids. No significant proteinuria reported, non-nephrotic proteinuria. We w ill follow.
[2018-04-21] MEDS: HYDROcodone/Acetaminophen 5/325 mg Tablet PO PRN (20:46)
--- NOTE | 2018-04-21 22:20 | PDOC.EVN ---
Event Note - Event Note Event Note: called regarding pt tachycardia which has been ongoing for most of the day and apparently no one was previously notified grossly asymptomatic but also new EKG ordered
[2018-04-21] MEDS ORDERED: Labetalol HCl 100 MG/20 ML VIAL SLOW IVP PRN (22:58)
[2018-04-22] MEDS: Sucralfate 1 GM TAB PO SCH ×4 (08:39→20:38)
[2018-04-22] MEDS: Amlodipine 5 MG TAB PO SCH (08:39)
[2018-04-22] MEDS: valACYclovir 500 MG TAB PO SCH (08:39)
[2018-04-22] MEDS: Sodium Chloride 0.9% 1,000 ML IV SCH ×2 (10:32→18:36)
[2018-04-22 11:16] LABS: Anion Gap 14 mmol/L (10-20); BUN (Urea Nitrogen) 54 mg/dL (9.8-20.1); Calc. Creatinine Clearance 26 mL/min (70-130); Calcium 9.1 mg/dL (7.8-10.44); Carbon Dioxide 23 mmol/L (22-29); Chloride 103 mmol/L (98-107); Estimated GFR-MDRD 17; Glucose 87 mg/dL (70-105); Potassium 3.6 mmol/L (3.5-5.1)
--- NOTE | 2018-04-22 11:16 | PDOC.PN ---
- Subjective Encounter Start Date: 04/22/18 Encounter Start Time: 11:12 Ms. Hernandez was seen today in follow-up of multiple myeloma, and acute renal failure. She says she still feels weak, and has no energy. She does admit to sleeping a bit better last night. She has a flat affect, and poor appetite, and decreased " energy".We discussed depression, and she initially denied this a was not interested in any medication. But after discussion, she says she will try an antidepressant. - Objective MAR Reviewed: Yes Vital Signs & Weight: Vital Signs (12 hours) Temp Pulse Resp BP BP Pulse Ox 04/22/18 08:39 108 H 149/65 H 04/22/18 08:00 98.5 F 108 H 20 149/65 H 96 04/22/18 04:00 98.2 F 99 17 153/68 H 100 04/22/18 00:00 98.6 F 104 H 16 131/62 99 Weight Weight 203 lb 3.2 oz I&O: 04/21/18 04/22/18 04/23/18 06:59 06:59 06:59 Intake Total 1051 2405 120 Output Total 725 1600 Balance 326 805 120 Result Diagrams: 04/21/18 12:53 04/21/18 05:08 Phys Exam - Physical Examination HEENT: PERRLA Respiratory: no wheezing, no rales, no rhonchi, clear to auscultation bilateral Cardiovascular: RRR, no significant murmur, no rub Gastrointestinal: soft, non-tender, positive bowel sounds Musculoskeletal: no edema Dx/Plan (1) DAISY (acute kidney injury) Code(s): N17.9 - ACUTE KIDNEY FAILURE, UNSPECIFIED Status: Acute Comment: Nephrology is consulted Dr. Velasquez, discussed, planned for IV hydration. (2) Anemia in chronic illness Code(s): D63.8 - ANEMIA IN OTHER CHRONIC DISEASES CLASSIFIED ELSEWHERE Status : Acute Comment: s/p 2 units. h/h is stable now. (3) Multiple myeloma Code(s): C90.00 - MULTIPLE MYELOMA NOT HAVING ACHIEVED REMISSION Status: Acute Comment: chemo per oncology service, consulted. (4) Physical deconditioning Code(s): R53.81 - OTHER MALAISE Status: Acute (5) Thrombocytopenia Code(s): D69.6 - THROMBOCYTOPENIA, UNSPECIFIED Status: Acute Comment: will transfuse 2 unit of platelets if <10 (6) HTN (hypertension) Code(s): I10 - ESSENTIAL (PRIMARY) HYPERTENSION Status: Chronic Comment: controlled - Plan * Anemia- associated with Myeloma- will repeat her CBC today * Thrombocytopenia- also associated with Myeloma- transfuse as needed * Acute renal failure- continue hydration, and monitor renal function * Depression- will give a trial of Zoloft * Tachycardia- sinus tach- ? related to volume depletion- Coninue fluids, and will screen for thyroid disease * HTN- blood pressure is slightly elevated- and with elevated heart rate will start low dose beta-miguelito .
[2018-04-22 11:26] LABS: Sodium 136 mmol/L (136-145)
[2018-04-22 11:52] LABS: Hemoglobin 8.1 g/dL (12.0-16.0); Mean Corpuscular Hemoglobin 28.8 pg (27.0-31.0); Mean Corpuscular Volume 79.8 fL (78.0-98.0); Platelet Count 30 thou/uL (130-400); RBC Distribution Width 17.1 % (11.5-14.5); Red Blood Cell (RBC) Count 2.83 mill/uL (4.20-5.40)
[2018-04-22 11:54] LABS: Band 9 % (5-11); Burr Cells SLIGHT = 2-5 cells (100X) (0-1/hpf); Eosinophils 2 % (0-10); Hypochromia SLIGHT = 6-15 cells (100X) (0-5/hpf); Lymphocytes 25 % (21-51); MDiff Complete? YES; Monocytes 19 % (0-10); Neutrophil 42 % (42-75); Nucleated RBC 86 % (0); PLT Morphology Comment Appears Decreased; Polychromasia SLIGHT = 2-3 cells (100X) (0-2/hpf); Reactive Lymphocytes 1 % (0-10); White Blood Cell (WBC) Count 9.9 thou/uL (4.8-10.8)
[2018-04-22 12:08] LABS: Free T4 (Free Thyroxine) 0.81 ng/dL (0.70-1.48); Thyroid Stimulating Hormone 4.5366 uIU/mL (0.35-4.94)
--- NOTE | 2018-04-22 12:36 | PRG ---
DATE OF SERVICE: 04/22/2018 SUBJECTIVE: Patient was seen and examined at bedside and overnight events noted. Patient denies any shortness of breath or chest pain or palpitation. No history of nausea or vomiting or diarrhea or f ever or chills or cramps. PHYSICAL EXAMINATION: GENERAL: This is a well-built female with mild fatigue and lethargy. VITAL SIGNS: Temperature 98.5, pulse 108, respiratory rate 18, blood pressure 149/65. HEENT: Atraumatic, normocephalic. Oral mucosa is moist. Neck: Supple. Cardiovascular: S1 S2 heard. Rate and rhythm regular. Respiratory: Clear to auscultation. Gastrointestinal: Abdomen is soft. Musculoskeletal: No tenderness. No edema. Dermatologic: No skin rash. Neurologic: Alert and awake and oriented X3. No focal neurologic deficits. Moving all the extremit ies. Psychiatric: Mood and affect normal. LABORATORY DATA: No labs done today. ASSESSMENT AND PLAN: 1. Acute kidney injury, most likely volume depletion. We will recheck labs today. 2. Edema, controlled. 3. Hypokalemia. 4. Metabolic acidosis. 5. Multiple myeloma. 6. Hypertension. 7. Recheck labs today. We will follow.
[2018-04-22] MEDS: HYDROcodone/Acetaminophen 5/325 mg Tablet PO PRN ×2 (13:16→20:38)
[2018-04-22] MEDS: Carvedilol 3.125 MG TAB PO SCH (18:33)
[2018-04-23] MEDS: HYDROcodone/Acetaminophen 5/325 mg Tablet PO PRN ×3 (03:24→21:52)
[2018-04-23] MEDS: Sodium Chloride 0.9% 1,000 ML IV SCH ×2 (05:27→12:51)
[2018-04-23 06:07] LABS: Platelet Count 15 thou/uL (130-400)
[2018-04-23 06:29] LABS: Band 17 % (5-11); Eosinophils 1 % (0-10); Hemoglobin 7.1 g/dL (12.0-16.0); Hypochromia SLIGHT = 6-15 cells (100X) (0-5/hpf); Lymphocytes 49 % (21-51); MDiff Complete? YES; Mean Corpuscular HGB CONC 34.1 g/dL (32.0-36.0); Mean Corpuscular Hemoglobin 27.4 pg (27.0-31.0); Mean Corpuscular Volume 80.3 fL (78.0-98.0); Mean Platelet Volume 14.1 fL (7.4-10.4); Monocytes 7 % (0-10); Myelocyte 1 % (0-0); Neutrophil 25 % (42-75); PLT Morphology Comment Appears Decreased; RBC Distribution Width 17.4 % (11.5-14.5); Red Blood Cell (RBC) Count 2.58 mill/uL (4.20-5.40); White Blood Cell (WBC) Count 21.7 thou/uL (4.8-10.8)
[2018-04-23] MEDS: Carvedilol 3.125 MG TAB PO SCH ×2 (08:58→16:20)
[2018-04-23] MEDS: valACYclovir 500 MG TAB PO SCH (08:58)
[2018-04-23] MEDS: Sucralfate 1 GM TAB PO SCH ×4 (08:58→21:52)
[2018-04-23] MEDS: Amlodipine 5 MG TAB PO SCH (08:58)
--- NOTE | 2018-04-23 10:22 | PDOC.PN ---
- Subjective Encounter Start Date: 04/23/18 Encounter Start Time: 10:20 Ms. Hernandez was seen today in follow-up of multiple myeloma. She is a little brighter today. she says she rested ok last night. Back pain is manageable. - Objective MAR Reviewed: Yes Vital Signs & Weight: Vital Signs (12 hours) Temp Pulse Resp BP BP Pulse Ox 04/23/18 07:41 98.5 F 99 18 146/67 H 96 04/23/18 04:00 98.8 F 104 H 15 165/71 H 97 04/23/18 00:00 98.7 F 107 H 19 155/70 H 99 Weight Weight 209 lb 8 oz I&O: 04/22/18 04/23/18 04/24/18 06:59 06:59 06:59 Intake Total 2405 2750 Output Total 1600 2550 Balance 805 200 Result Diagrams: 04/23/18 05:51 04/22/18 10:44 Phys Exam - Physical Examination HEENT: PERRLA Respiratory: no wheezing, no rales, no rhonchi, clear to auscultation bilateral Cardiovascular: RRR, no significant murmur, no rub Gastrointestinal: soft, non-tender, positive bowel sounds Musculoskeletal: no edema Dx/Plan (1) DAISY (acute kidney injury) Code(s): N17.9 - ACUTE KIDNEY FAILURE, UNSPECIFIED Status: Acute Comment: Nephrology is consulted Dr. Velasquez, discussed, planned for IV hydration. (2) Anemia in chronic illness Code(s): D63.8 - ANEMIA IN OTHER CHRONIC DISEASES CLASSIFIED ELSEWHERE Status : Acute Comment: s/p 2 units. h/h is stable now. (3) Multiple myeloma Code(s): C90.00 - MULTIPLE MYELOMA NOT HAVING ACHIEVED REMISSION Status: Acute Comment: chemo per oncology service, consulted. (4) Physical deconditioning Code(s): R53.81 - OTHER MALAISE Status: Acute (5) Thrombocytopenia Code(s): D69.6 - THROMBOCYTOPENIA, UNSPECIFIED Status: Acute Comment: will transfuse 2 unit of platelets if <10 (6) HTN (hypertension) Code(s): I10 - ESSENTIAL (PRIMARY) HYPERTENSION Status: Chronic Comment: controlled - Plan * Multiple Myeloma- she continues with persistent anemia, and thrombocytopenia- will re-check in the AM, She may need a repeat transfusion of both platelets, and Red blood cells. * HTN- blood pressure is better * Depression- continue Zoloft * Acute renal failure- slowly improving- will check lab work for today * Deconditioning- continue PT/OT.
[2018-04-23 11:01] LABS: Anion Gap 12 mmol/L (10-20); BUN (Urea Nitrogen) 45 mg/dL (9.8-20.1); Calc. Creatinine Clearance 34 mL/min (70-130); Calcium 8.9 mg/dL (7.8-10.44); Carbon Dioxide 24 mmol/L (22-29); Chloride 104 mmol/L (98-107); Estimated GFR-MDRD 21; Glucose 97 mg/dL (70-105); Potassium 3.3 mmol/L (3.5-5.1); Sodium 137 mmol/L (136-145)
[2018-04-23] MEDS ORDERED: Potassium Chloride 20 MEQ TAB PO SCH (11:30)
--- NOTE | 2018-04-23 13:14 | PRG ---
DATE OF SERVICE: 04/23/2018 SUBJECTIVE: Patient was seen and examined at bedside and overnight events noted. Patient denies any shortness of breath or chest pain or palpitation. No history of nausea or vomiting or diarrhea or fever or chills or cramps. OBJECTIVE: GENERAL: This is an obese female, in no apparent distress VITAL SIGNS: Temperature 98.6, HR 68, RR 18, blood pressure 146/67. HEENT: Atraumatic, normocephalic, oral mucosa is moist. NECK: Supple. CARDIOVASCULAR: S1, S2 heard, rate and rhythm regular. RESPIRATORY: Clear to auscultation GASTROINTESTINAL: Abdomen is soft. MUSCULOSKELETAL: No tenderness, no edema. DERMATOLOGIC: No skin rash. NEUROLOGIC: Alert and awake and oriented x3, no focal neurologic deficits. Moving all the extremities. PSYCHIATRIC: Mood and affect normal. LABORATORY DATA: Potassium 3.3, BUN 45, creatinine is 2.7. ASSESSMENT AND PLAN: 1. Acute kidney injury, volume depletion, getting better with IV hydration. We will reduce IV fluids to 50 mL per hour. 2. Hypokalemia. We will replace. Check magnesium in the morning. 3. Edema, stable. 4. History of multiple myeloma. 5. Hypertension, stable. 6. Replace potassium and reduce IV fluids. We will continue to monitor. Avoid nephrotoxins. MTDD
[2018-04-24] MEDS: Sodium Chloride 0.9% 1,000 ML IV SCH
[2018-04-24 05:31] LABS: Hemoglobin 7.5 g/dL (12.0-16.0); Mean Corpuscular Hemoglobin 27.5 pg (27.0-31.0); Mean Corpuscular Volume 80.7 fL (78.0-98.0); Mean Platelet Volume 15.1 fL (7.4-10.4); Platelet Count 9 thou/uL (130-400); RBC Distribution Width 17.5 % (11.5-14.5); Red Blood Cell (RBC) Count 2.72 mill/uL (4.20-5.40); White Blood Cell (WBC) Count 28.8 thou/uL (4.8-10.8)
[2018-04-24 05:34] LABS: ALT (SGPT) 16 U/L (8-55); AST (SGOT) 31 U/L (5-34); Albumin 3.2 g/dL (3.5-5.0); Alkaline Phosphatase 125 U/L (40-150); Anion Gap 16 mmol/L (10-20); BUN (Urea Nitrogen) 42 mg/dL (9.8-20.1); Bilirubin, Total 1.2 mg/dL (0.2-1.2); Calc. Creatinine Clearance 37 mL/min (70-130); Calcium 9.2 mg/dL (7.8-10.44); Carbon Dioxide 21 mmol/L (22-29); Chloride 104 mmol/L (98-107); Estimated GFR-MDRD 24; Globulin 2.7 g/dL (2.4-3.5); Glucose 87 mg/dL (70-105); Magnesium 1.2 mg/dL (1.6-2.6); Potassium 3.8 mmol/L (3.5-5.1); Protein, Total 5.9 g/dL (6.0-8.3); Sodium 137 mmol/L (136-145)
[2018-04-24 06:47] LABS: Hypochromia SLIGHT = 6-15 cells (100X) (0-5/hpf); MDiff Complete? YES; PLT Morphology Comment Appears Decreased
[2018-04-24] MEDS: valACYclovir 500 MG TAB PO SCH (08:32)
[2018-04-24] MEDS: Amlodipine 5 MG TAB PO SCH (08:33)
[2018-04-24] MEDS: Carvedilol 3.125 MG TAB PO SCH ×2 (08:33→17:52)
[2018-04-24] MEDS: Lidocaine 5% Patch TD SCH (08:34)
[2018-04-24] MEDS: Sucralfate 1 GM TAB PO SCH ×4 (08:34→23:02)
--- NOTE | 2018-04-24 09:19 | PDOC.PN ---
- Subjective Encounter Start Date: 04/24/18 Encounter Start Time: 09:18 Ms. Hernandez was seen today in follow-up. She says she continues to have pain in her back, and poor appetite, and low energy. - Objective MAR Reviewed: Yes Vital Signs & Weight: Vital Signs (12 hours) Temp Pulse Resp BP Pulse Ox 04/24/18 07:27 98.8 F 101 H 20 126/60 96 04/24/18 04:00 98.4 F 102 H 24 H 149/67 H 95 Weight Weight 209 lb 8 oz I&O: 04/23/18 04/24/18 04/25/18 06:59 06:59 06:59 Intake Total 2750 2375 Output Total 2550 495 Balance 200 1880 Result Diagrams: 04/24/18 04:47 04/24/18 04:47 Phys Exam - Physical Examination HEENT: PERRLA Respiratory: no wheezing, no rhonchi + rales at the bases Cardiovascular: RRR, no significant murmur, no rub Gastrointestinal: soft, non-tender, positive bowel sounds Musculoskeletal: edema present 2+ pitting edema in both lower extremities Dx/Plan (1) DAISY (acute kidney injury) Code(s): N17.9 - ACUTE KIDNEY FAILURE, UNSPECIFIED Status: Acute Comment: Nephrology is consulted Dr. Velasquez, discussed, planned for IV hydration. (2) Anemia in chronic illness Code(s): D63.8 - ANEMIA IN OTHER CHRONIC DISEASES CLASSIFIED ELSEWHERE Status : Acute Comment: s/p 2 units. h/h is stable now. (3) Multiple myeloma Code(s): C90.00 - MULTIPLE MYELOMA NOT HAVING ACHIEVED REMISSION Status: Acute Comment: chemo per oncology service, consulted. (4) Physical deconditioning Code(s): R53.81 - OTHER MALAISE Status: Acute (5) Thrombocytopenia Code(s): D69.6 - THROMBOCYTOPENIA, UNSPECIFIED Status: Acute Comment: will transfuse 2 unit of platelets if <10 (6) HTN (hypertension) Code(s): I10 - ESSENTIAL (PRIMARY) HYPERTENSION Status: Chronic Comment: controlled - Plan * Multiple Myeloma- with anemia- her platelet count is a bit low- will transfuse * Await further recommendations from Oncology * Acute renal failure- renal function is improving . * Depression- affect is flat again today- will continue Zoloft, continue to observe * HTN- blood pressure is stable
[2018-04-24] MEDS ORDERED: Furosemide 20 MG/2 ML VIAL SLOW IVP SCH (12:15)
--- NOTE | 2018-04-24 12:25 | PRG ---
DATE OF SERVICE: 04/24/2018 SUBJECTIVE: A 58-year-old female being seen for acute kidney injury. The patient denies any nausea, vomiting, or chest pain. PHYSICAL EXAMINATION: GENERAL: Patient is awake, alert. VITAL SIGNS: Afebrile, pulse 100, breathing at 23, blood pressure 147/73. HEAD/NECK: Normocephalic. Atraumatic. EYES: EOMI. No deformity. EARS: Clear. No ulcers. NOSE: Intact. No lesions. MOUTH: Clear. No discharge. THROAT: Clear. No exudate. LUNGS: Clear. No crackles. CARDIAC: S1, S2. No rub. ABDOMEN: Benign. BS+. GENITALIA/RECTUM: Crowe absent. BACK/EXTREMITIES: Edema 0+ Ulcer- NEUROLOGICAL: Alert and motor intact. SKIN: Rash- Bruise- LYMPHATICS: Edema- Ulcer- LABORATORY DATA: Show hemoglobin 7.5, creatinine 2.5. ASSESSMENT AND RECOMMENDATIONS: 1. Acute kidney injury, improved. 2. Hypertension, stable. 3. Congestive heart failure. We will start Lasix and hold IV fluids. 4. Edema. Medications based on glomerular filtration rate are appropriate. Overall, prognosis is poor.
[2018-04-24 13:47] LABS: Band 8 % (5-11); Neutrophil 14 % (42-75)
[2018-04-24 13:48] LABS: Eosinophils 3 % (0-10); Lymphocytes 28 % (21-51); Metamyelocyte 1 % (0-0); Monocytes 1 % (0-10); Nucleated RBC 2 % (0)
[2018-04-24 13:50] LABS: Reactive Lymphocytes 10 % (0-10)
[2018-04-24] MEDS ORDERED: Dexamethasone 4 MG TAB PO SCH (14:45)
[2018-04-24] MEDS ORDERED: ADMIXTURE FEE SC SCH (14:45)
[2018-04-24] MEDS ORDERED: BORTEZOMIB SC SCH (14:45)
[2018-04-24] MEDS: HYDROcodone/Acetaminophen 5/325 mg Tablet PO PRN ×2 (17:49→22:00)
[2018-04-25 05:44] LABS: Anion Gap 21 mmol/L (10-20); BUN (Urea Nitrogen) 63 mg/dL (9.8-20.1); Calc. Creatinine Clearance 35 mL/min (70-130); Carbon Dioxide 17 mmol/L (22-29); Chloride 105 mmol/L (98-107); Estimated GFR-MDRD 22; Glucose 193 mg/dL (70-105); Potassium 4.1 mmol/L (3.5-5.1); Sodium 139 mmol/L (136-145)
[2018-04-25 05:55] LABS: Hemoglobin 7.3 g/dL (12.0-16.0); Mean Corpuscular HGB CONC 33.7 g/dL (32.0-36.0); Mean Corpuscular Hemoglobin 27.1 pg (27.0-31.0); Mean Corpuscular Volume 80.3 fL (78.0-98.0); Mean Platelet Volume 13.8 fL (7.4-10.4); Platelet Count 18 thou/uL (130-400); Red Blood Cell (RBC) Count 2.69 mill/uL (4.20-5.40); White Blood Cell (WBC) Count 21.1 thou/uL (4.8-10.8)
[2018-04-25 06:25] LABS: Band 15 % (5-11); Differential Comment Atypical Mono-like; Eosinophils 1 % (0-10); Lymphocytes 27 % (21-51); MDiff Complete? YES; Metamyelocyte 2 % (0-0); Monocytes 6 % (0-10); Neutrophil 29 % (42-75); Nucleated RBC 3 % (0); PLT Morphology Comment Appears Decreased; Reactive Lymphocytes 3 % (0-10)
[2018-04-25] MEDS: Lidocaine 5% Patch TD SCH (08:46)
[2018-04-25] MEDS: Carvedilol 3.125 MG TAB PO SCH ×2 (08:47→16:35)
[2018-04-25] MEDS: Amlodipine 5 MG TAB PO SCH (08:47)
[2018-04-25] MEDS: Sucralfate 1 GM TAB PO SCH ×4 (08:47→20:29)
[2018-04-25] MEDS: valACYclovir 500 MG TAB PO SCH (08:48)
--- NOTE | 2018-04-25 10:01 | PDOC.PN ---
- Subjective Encounter Start Date: 04/25/18 Encounter Start Time: 09:59 Ms. Hernandez was seen today in follow-up of multiple Myeloma Myeloma, and acute kidney injury. She says she is feeling a little better today. She is less short of breath. She admits to continuing to feel a bit drowsy. - Objective MAR Reviewed: Yes Vital Signs & Weight: Vital Signs (12 hours) Temp Pulse Resp BP Pulse Ox 04/25/18 08:42 98.6 F 100 18 161/69 H 92 L 04/25/18 04:00 98 F 101 H 15 160/74 H 97 04/24/18 22:00 151/67 H Weight Weight 214 lb 12.8 oz I&O: 04/24/18 04/25/18 04/26/18 06:59 06:59 06:59 Intake Total 2375 960 Output Total 495 1150 Balance 1880 -190 Result Diagrams: 04/25/18 04:59 04/25/18 04:59 Phys Exam - Physical Examination HEENT: PERRLA Respiratory: no wheezing, no rales, no rhonchi, clear to auscultation bilateral Cardiovascular: RRR, no significant murmur, no rub Gastrointestinal: soft, non-tender, positive bowel sounds Musculoskeletal: edema present 2+ pitting edema Neurological: non-focal Dx/Plan (1) DAISY (acute kidney injury) Code(s): N17.9 - ACUTE KIDNEY FAILURE, UNSPECIFIED Status: Acute Comment: Nephrology is consulted Dr. Velasquez, discussed, planned for IV hydration. (2) Anemia in chronic illness Code(s): D63.8 - ANEMIA IN OTHER CHRONIC DISEASES CLASSIFIED ELSEWHERE Status : Acute Comment: s/p 2 units. h/h is stable now. (3) Multiple myeloma Code(s): C90.00 - MULTIPLE MYELOMA NOT HAVING ACHIEVED REMISSION Status: Acute Comment: chemo per oncology service, consulted. (4) Physical deconditioning Code(s): R53.81 - OTHER MALAISE Status: Acute (5) Thrombocytopenia Code(s): D69.6 - THROMBOCYTOPENIA, UNSPECIFIED Status: Acute Comment: will transfuse 2 unit of platelets if <10 (6) HTN (hypertension) Code(s): I10 - ESSENTIAL (PRIMARY) HYPERTENSION Status: Chronic Comment: controlled - Plan * Multiple Myeloma- She received a dose of Velcade yesterday * Transfuse as needed for anemia and thrombocytopenia * Acute kidney injury- renal function has stabilized- continue to observe * HTN- blood pressure continues to be labile- will monitor * Volume overload- likely from fluid administration- however, will check an Echo to assess her EF * Continue IV Lasix.
--- NOTE | 2018-04-25 10:42 | PRG ---
DATE OF SERVICE: 04/25/2018 SUBJECTIVE: A 58-year-old female being seen for acute kidney injury. The patient denies any nausea, vomiting, or chest pain. PHYSICAL EXAMINATION: GENERAL: Patient is awake, alert. VITAL SIGNS: Afebrile, pulse 100, breathing 16, blood pressure 162/74. OBJECTIVE: See above. Awake, alert, in no acute distress. GENERAL APPEARANCE AND MENTAL STATUS: Fair. HEAD/NECK: Normocephalic. Atraumatic. EYES: EOMI. No deformity. EARS: Clear. No ulcers. NOSE: Intact. No lesions. MOUTH: Clear. No discharge. THROAT: Clear. No exudate. LUNGS: Clear. No crackles. CARDIAC: S1, S2. No rub. ABDOMEN: Benign. BS+. GENITALIA/RECTUM: Crowe absent. BACK/EXTREMITIES: Edema 0+ Ulcer- NEUROLOGICAL: Alert and motor intact. SKIN: Rash- Bruise- LYMPHATICS: Edema- Ulcer- LABORATORY: Hemoglobin 7.3, creatinine 2.6. ASSESSMENT AND RECOMMENDATIONS: 1. Acute kidney injury with chronic kidney disease stage 4, stable. 2. Hypertension, stable. 3. Anemia, stable. 4. Metabolic acidosis, stable. No indication for dialysis at this time. 5. Hypertension. Start low sodium diet.
[2018-04-25] MEDS: HYDROcodone/Acetaminophen 5/325 mg Tablet PO PRN ×2 (15:19→22:58)
[2018-04-26] MEDS: HYDROcodone/Acetaminophen 5/325 mg Tablet PO PRN ×3 (03:37→20:36)
[2018-04-26 06:32] LABS: Hemoglobin 6.9 g/dL (12.0-16.0); Mean Corpuscular HGB CONC 34.8 g/dL (32.0-36.0); Mean Corpuscular Hemoglobin 27.6 pg (27.0-31.0); Mean Corpuscular Volume 79.3 fL (78.0-98.0); Mean Platelet Volume 16.8 fL (7.4-10.4); Platelet Count 12 thou/uL (130-400); RBC Distribution Width 17.8 % (11.5-14.5); Red Blood Cell (RBC) Count 2.48 mill/uL (4.20-5.40); White Blood Cell (WBC) Count 17.9 thou/uL (4.8-10.8)
[2018-04-26 06:44] LABS: Anion Gap 18 mmol/L (10-20); BUN (Urea Nitrogen) 90 mg/dL (9.8-20.1); Calc. Creatinine Clearance 33 mL/min (70-130); Calcium 8.2 mg/dL (7.8-10.44); Carbon Dioxide 18 mmol/L (22-29); Chloride 106 mmol/L (98-107); Estimated GFR-MDRD 21; Glucose 147 mg/dL (70-105); Potassium 3.9 mmol/L (3.5-5.1); Sodium 138 mmol/L (136-145)
[2018-04-26 07:00] LABS: Band 2 % (5-11); Hypochromia SLIGHT = 6-15 cells (100X) (0-5/hpf); Lymphocytes 20 % (21-51); MDiff Complete? YES; Monocytes 1 % (0-10); Neutrophil 43 % (42-75); PLT Morphology Comment Appears Adequate; Reactive Lymphocytes 18 % (0-10)
--- NOTE | 2018-04-26 07:10 | PRG ---
DATE OF SERVICE: 04/26/2018 SUBJECTIVE: This is a 58-year-old female being seen for acute kidney injury. The patient denies any nausea, vomiting or chest pain. PHYSICAL EXAMINATION: GENERAL: The patient is awake and alert. VITAL SIGNS: Afebrile, pulse 86, breathing at 16, blood pressure 126/60. GENERAL APPEARANCE AND MENTAL STATUS: Fair. HEAD/NECK: Normocephalic. Atraumatic. EYES: EOMI. No deformity. EARS: Clear. No ulcers. NOSE: Intact. No lesions. MOUTH: Clear. No discharge. THROAT: Clear. No exudate. LUNGS: Clear. No crackles. CARDIAC: S1, S2. No rub. ABDOMEN: Benign. BS+. GENITALIA/RECTUM: Crowe absent. BACK/EXTREMITIES: Edema 0+ Ulcer-. NEUROLOGICAL: Alert and motor intact. SKIN: Rash- Bruise- LYMPHATICS: Edema- Ulcer-. LABORATORY DATA: Show hemoglobin 6.9, creatinine 2.8. ASSESSMENT AND RECOMMENDATIONS: 1. Acute kidney injury with progressive rise in creatinine, multifactorial. 2. Metabolic acidosis, stable. 3. Anemia. I would recommend transfusion. 4. Hypomagnesemia. I would recommend recheck magnesium today. 5. Medications based on glomerular filtration rate are appropriate.
[2018-04-26] MEDS: Sucralfate 1 GM TAB PO SCH ×4 (09:12→20:36)
[2018-04-26] MEDS: Carvedilol 3.125 MG TAB PO SCH ×2 (09:13→18:13)
[2018-04-26] MEDS: Lidocaine 5% Patch TD SCH (09:13)
[2018-04-26] MEDS: Amlodipine 5 MG TAB PO SCH (09:13)
[2018-04-26] MEDS: valACYclovir 500 MG TAB PO SCH (09:17)
[2018-04-26] MEDS ORDERED: Furosemide 20 MG/2 ML VIAL SLOW IVP SCH (10:15)
[2018-04-26] MEDS ORDERED: Amlodipine 5 MG TAB PO SCH (10:15)
--- NOTE | 2018-04-26 10:44 | PDOC.PN ---
- Subjective Encounter Start Date: 04/26/18 Encounter Start Time: 10:41 Ms. Hernandez was seen today in follow-up of multiple myeloma. She does not have any new complaints. - Objective MAR Reviewed: Yes Vital Signs & Weight: Vital Signs (12 hours) Temp Pulse Resp BP BP Pulse Ox 04/26/18 07:43 97.6 F 82 18 116/57 L 95 04/26/18 04:00 97.7 F 86 24 H 126/60 92 L Weight Weight 210 lb 4.8 oz I&O: 04/25/18 04/26/18 04/27/18 06:59 06:59 06:59 Intake Total 960 1720 Output Total 1150 600 Balance -190 1120 Result Diagrams: 04/26/18 06:00 04/26/18 06:00 Phys Exam - Physical Examination HEENT: PERRLA Respiratory: no wheezing, no rales, no rhonchi, clear to auscultation bilateral Cardiovascular: RRR, no significant murmur, no rub Gastrointestinal: soft, non-tender, no distention, positive bowel sounds Musculoskeletal: edema present 2+ pitting edema in both lower extremities Dx/Plan (1) DAISY (acute kidney injury) Code(s): N17.9 - ACUTE KIDNEY FAILURE, UNSPECIFIED Status: Acute Comment: Nephrology is consulted Dr. Velasquez, discussed, planned for IV hydration. (2) Anemia in chronic illness Code(s): D63.8 - ANEMIA IN OTHER CHRONIC DISEASES CLASSIFIED ELSEWHERE Status : Acute Comment: s/p 2 units. h/h is stable now. (3) Multiple myeloma Code(s): C90.00 - MULTIPLE MYELOMA NOT HAVING ACHIEVED REMISSION Status: Acute Comment: chemo per oncology service, consulted. (4) Physical deconditioning Code(s): R53.81 - OTHER MALAISE Status: Acute (5) Thrombocytopenia Code(s): D69.6 - THROMBOCYTOPENIA, UNSPECIFIED Status: Acute Comment: will transfuse 2 unit of platelets if <10 (6) HTN (hypertension) Code(s): I10 - ESSENTIAL (PRIMARY) HYPERTENSION Status: Chronic Comment: controlled - Plan * Acute Kidney failure- Discussed with Nephrology- Due to multiple factors- continue to monitor. * Multiple Myeloma- continue Velcade -thrombocytopenia, and Anemia related to this- transfuse as needed * Deconditioning- continue PT/OT * HTN- blood pressure is controlled
--- NOTE | 2018-04-26 17:35 | ULT ---
VENOUS DUPLEX SONOGRAM LEFT UPPER EXTREMITY: 04/26/18 HISTORY: Left arm pain and edema. FINDINGS: The left internal jugular vein and subclavian vein are evaluated along with the axillary, brachial, c ephalic and basilic. Good color and spectral doppler flow. IMPRESSION: No sonographic evidence of DVT left upper extremity. POS: YADY
[2018-04-27] MEDS: HYDROcodone/Acetaminophen 5/325 mg Tablet PO PRN ×3 (05:38→18:51)
[2018-04-27 06:58] LABS: Hemoglobin 6.6 g/dL (12.0-16.0); Mean Corpuscular Hemoglobin 27.8 pg (27.0-31.0); Mean Corpuscular Volume 79.3 fL (78.0-98.0); Platelet Count 8 thou/uL (130-400); RBC Distribution Width 17.8 % (11.5-14.5); Red Blood Cell (RBC) Count 2.39 mill/uL (4.20-5.40); White Blood Cell (WBC) Count 17.8 thou/uL (4.8-10.8)
[2018-04-27 07:20] LABS: Anion Gap 14 mmol/L (10-20); BUN (Urea Nitrogen) 93 mg/dL (9.8-20.1); Calc. Creatinine Clearance 34 mL/min (70-130); Calcium 7.9 mg/dL (7.8-10.44); Carbon Dioxide 23 mmol/L (22-29); Chloride 107 mmol/L (98-107); Estimated GFR-MDRD 21; Glucose 82 mg/dL (70-105); Potassium 3.7 mmol/L (3.5-5.1); Sodium 140 mmol/L (136-145)
[2018-04-27] MEDS: valACYclovir 500 MG TAB PO SCH (08:42)
[2018-04-27] MEDS: Sucralfate 1 GM TAB PO SCH ×4 (08:43→20:48)
[2018-04-27] MEDS: Carvedilol 3.125 MG TAB PO SCH ×2 (08:43→17:12)
[2018-04-27] MEDS: Lidocaine 5% Patch TD SCH (08:44)
[2018-04-27 08:46] LABS: Band 10 % (5-11); Lymphocytes 16 % (21-51); MDiff Complete? YES; Metamyelocyte 4 % (0-0); Monocytes 9 % (0-10); Myelocyte 1 % (0-0); Neutrophil 39 % (42-75); Nucleated RBC 4 % (0); PLT Morphology Comment Appears Decreased; Polychromasia SLIGHT = 2-3 cells (100X) (0-2/hpf); Reactive Lymphocytes 8 % (0-10); Schistocytes SLIGHT = 2-5 cells (100X) (0-1/hpf)
--- NOTE | 2018-04-27 09:13 | PDOC.PN ---
- Subjective Encounter Start Date: 04/27/18 Encounter Start Time: 09:11 Ms. Hernandez was seen today in follow up of multiple myeloma. She says the pain in her chest and back have improved some. She is still very weak. Her is at the bedside, and he is upset, and says the patient is too regarding the diagnosis. They don't understand why this wasn't found sooner. He believes the myeloma was present 2 years ago when she was diagnoses with colon cancer. They also don't understand how her condition progressed so fast while in the hospital on this admission; especially with regards to her renal function. - Objective MAR Reviewed: Yes Vital Signs & Weight: Vital Signs (12 hours) Temp Pulse Resp BP Pulse Ox 04/27/18 04:00 98.4 F 83 14 124/56 L 97 Weight Weight 213 lb 1.6 oz I&O: 04/26/18 04/27/18 04/28/18 06:59 06:59 06:59 Intake Total 1720 780 Output Total 600 1800 Balance 1120 -1020 Result Diagrams: 04/27/18 06:44 04/27/18 06:44 Phys Exam - Physical Examination HEENT: PERRLA Respiratory: no wheezing, no rales, no rhonchi, clear to auscultation bilateral Cardiovascular: RRR, no significant murmur, no rub Gastrointestinal: soft, non-tender, no distention, positive bowel sounds Musculoskeletal: edema present 2+ pitting edema Neurological: non-focal, moves all 4 limbs Dx/Plan (1) DAISY (acute kidney injury) Code(s): N17.9 - ACUTE KIDNEY FAILURE, UNSPECIFIED Status: Acute Comment: Nephrology is consulted Dr. Velasquez, discussed, planned for IV hydration. (2) Anemia in chronic illness Code(s): D63.8 - ANEMIA IN OTHER CHRONIC DISEASES CLASSIFIED ELSEWHERE Status : Acute Comment: s/p 2 units. h/h is stable now. (3) Multiple myeloma Code(s): C90.00 - MULTIPLE MYELOMA NOT HAVING ACHIEVED REMISSION Status: Acute Comment: chemo per oncology service, consulted. (4) Physical deconditioning Code(s): R53.81 - OTHER MALAISE Status: Acute (5) Thrombocytopenia Code(s): D69.6 - THROMBOCYTOPENIA, UNSPECIFIED Status: Acute Comment: will transfuse 2 unit of platelets if <10 (6) HTN (hypertension) Code(s): I10 - ESSENTIAL (PRIMARY) HYPERTENSION Status: Chronic Comment: controlled - Plan * Acute Kidney Injury- likely due to Myeloma- discussed this in detail with the patient and her ,and tried to explain this as best I could.Myeloma is known to cause renal failure, even when discover early treated promptly * Nephrology managing * Myeloma- continue Velcade as per Oncology * HTN- blood pressure is better * Physical deconditioning- continue PT/OT * Will need to begin thinking about post acute care management- will place a Case Management consult .
[2018-04-27] MEDS ORDERED: Furosemide 20 MG/2 ML VIAL SLOW IVP SCH (11:00)
--- NOTE | 2018-04-27 22:32 | PRG ---
DATE OF SERVICE: 04/27/2018 SUBJECTIVE: A 58-year-old female being seen for acute kidney injury. The patient denies any nausea, vomiting, or chest pain. OBJECTIVE: GENERAL: On exam, the patient is awake, alert. VITAL SIGNS: Afebrile, pulse 84, breathing at 16, blood pressure 126/58. GENERAL APPEARANCE AND MENTAL STATUS: Fair. HEAD/NECK: Normocephalic. Atraumatic. EYES: EOMI. No deformity. EARS: Clear. No ulcers. NOSE: Intact. No lesions. MOUTH: Clear. No discharge. THROAT: Clear. No exudate. LUNGS: Clear. No crackles. CARDIAC: S1, S2. No rub. ABDOMEN: Benign. BS+. GENITALIA/RECTUM: Crowe absent. BACK/EXTREMITIES: Lower extremities have 4+ edema. Ulcer-. NEUROLOGICAL: Alert and motor intact. SKIN: Rash-. Bruise-. LYMPHATICS: Edema-. Ulcer-. LABORATORY DATA: Hemoglobin 6.6. Potassium 3.7, creatinine 2.8. IMPRESSION: 1. Acute kidney injury with chronic kidney disease, stage 4, due to multiple myeloma. Discussed ris ks versus benefits of renal replacement therapy. The patient at this time declined any renal replace ment therapy. 2. Continue diuresis. 3. Anemia. Management per primary team. 4. Hypertension, stable. 5. Edema. Overall, prognosis is poor.
[2018-04-28] MEDS ORDERED: Furosemide 40 MG/4 ML VIAL SLOW IVP SCH (05:30)
[2018-04-28 06:19] LABS: Anion Gap 15 mmol/L (10-20); BUN (Urea Nitrogen) 83 mg/dL (9.8-20.1); Calc. Creatinine Clearance 37 mL/min (70-130); Calcium 8.5 mg/dL (7.8-10.44); Carbon Dioxide 21 mmol/L (22-29); Chloride 108 mmol/L (98-107); Estimated GFR-MDRD 23; Glucose 75 mg/dL (70-105); Potassium 3.4 mmol/L (3.5-5.1); Sodium 141 mmol/L (136-145)
[2018-04-28 06:57] LABS: Band 15 % (5-11); Eosinophils 2 % (0-10); Hemoglobin 7.7 g/dL (12.0-16.0); Lymphocytes 8 % (21-51); MDiff Complete? YES; Mean Corpuscular HGB CONC 36.1 g/dL (32.0-36.0); Mean Corpuscular Hemoglobin 28.6 pg (27.0-31.0); Mean Corpuscular Volume 79.1 fL (78.0-98.0); Mean Platelet Volume 5.7 fL (7.4-10.4); Metamyelocyte 3 % (0-0); Monocytes 2 % (0-10); Myelocyte 1 % (0-0); Neutrophil 30 % (42-75); Nucleated RBC 2 % (0); PLT Morphology Comment Appears Decreased; Platelet Count 46 thou/uL (130-400); RBC Distribution Width 16.9 % (11.5-14.5); Reactive Lymphocytes 5 % (0-10); Red Blood Cell (RBC) Count 2.69 mill/uL (4.20-5.40); White Blood Cell (WBC) Count 25.4 thou/uL (4.8-10.8)
--- NOTE | 2018-04-28 08:19 | PDOC.PN ---
- Subjective Encounter Start Date: 04/28/18 Encounter Start Time: 08:17 Ms. Hernandez was seen today in follow-up of multiple myeloma and severe anemia. She is complaining of feeling dyspneic. She has refused dialysis. - Objective MAR Reviewed: Yes Vital Signs & Weight: Vital Signs (12 hours) Temp Pulse Resp BP Pulse Ox 04/28/18 05:55 97 04/28/18 05:05 99.2 F 110 H 23 H 148/67 H 97 04/27/18 23:15 98.2 F 106 H 20 141/64 H 92 L Weight Admit Weight 199 lb Weight 213 lb 1.6 oz I&O: 04/27/18 04/28/18 04/29/18 06:59 06:59 06:59 Intake Total 780 1345 Output Total 1800 1700 Balance -1020 -355 Result Diagrams: 04/28/18 05:08 04/28/18 05:08 Phys Exam - Physical Examination HEENT: PERRLA Respiratory: no wheezing, no rales, no rhonchi, clear to auscultation bilateral Cardiovascular: RRR, no significant murmur, no rub Gastrointestinal: soft, non-tender, no distention, positive bowel sounds Musculoskeletal: no edema Dx/Plan (1) DAISY (acute kidney injury) Code(s): N17.9 - ACUTE KIDNEY FAILURE, UNSPECIFIED Status: Acute Comment: Nephrology is consulted Dr. Velasquez, discussed, planned for IV hydration. (2) Anemia in chronic illness Code(s): D63.8 - ANEMIA IN OTHER CHRONIC DISEASES CLASSIFIED ELSEWHERE Status : Acute Comment: s/p 2 units. h/h is stable now. (3) Multiple myeloma Code(s): C90.00 - MULTIPLE MYELOMA NOT HAVING ACHIEVED REMISSION Status: Acute Comment: chemo per oncology service, consulted. (4) Physical deconditioning Code(s): R53.81 - OTHER MALAISE Status: Acute (5) Thrombocytopenia Code(s): D69.6 - THROMBOCYTOPENIA, UNSPECIFIED Status: Acute Comment: will transfuse 2 unit of platelets if <10 (6) HTN (hypertension) Code(s): I10 - ESSENTIAL (PRIMARY) HYPERTENSION Status: Chronic Comment: controlled - Plan * Multiple Myeloma- discussed with Oncology- since she is so weak, she would do better going to residential or rehab prior to going home. Since she will not be able to receive Chemotherapy Infusions while in [facility],the Velcade can be held if she is approved for residential * Transfusion dependent anemia- continue to transfuse as tolerated. * Acute kidney Injury- due to myeloma- She has refused dialysis, I spoke to her again, and she seems to be re-thinking this- especially since she is volume overloaded. I told her to let anyone of us or the nursing staff know, if she changes her mind- renal function has not changed * HTN- blood pressure is better. * Severe Deconditioning- continue PT/OT and Skilled and Rehab screen have been placed.
--- NOTE | 2018-04-28 08:24 | RAD ---
SINGLE VIEW OF CHEST: Date: 04/28/18 COMPARISON: 04/16/18. HISTORY: Low oxygen saturation. FINDINGS: Single view of the chest shows cardiomediastinal silhouette which is upper limits of normal in size. There are diffuse mixed interstitial and alveolar opacities throughout the lungs. No pleural effusion is seen. IMPRESSION: Nonspecific diffuse mixed pulmonary opacities. This could represent pulmonary edema or an atypical in fection. POS: CET
[2018-04-28] MEDS: Sucralfate 1 GM TAB PO SCH ×4 (09:03→20:04)
[2018-04-28] MEDS: valACYclovir 500 MG TAB PO SCH (09:03)
[2018-04-28] MEDS: Carvedilol 3.125 MG TAB PO SCH ×2 (09:04→17:34)
[2018-04-28] MEDS: Lidocaine 5% Patch TD SCH (09:04)
--- NOTE | 2018-04-28 12:07 | PRG ---
DATE OF SERVICE: 04/28/2018 SUBJECTIVE: This is a 58-year-old female being seen for acute kidney injury. The patient denies any nausea, vomiting, or chest pain. PHYSICAL EXAMINATION: GENERAL: Patient is awake, alert. VITAL SIGNS: Afebrile, pulse 77, breathing at 16, blood pressure 136/58. HEAD/NECK: Normocephalic. Atraumatic. EYES: EOMI. No deformity. EARS: Clear. No ulcers. NOSE: Intact. No lesions. MOUTH: Clear. No discharge. THROAT: Clear. No exudate. LUNGS: Clear. No crackles. CARDIAC: S1, S2. No rub. ABDOMEN: Benign. BS+. GENITALIA/RECTUM: Crowe absent. BACK/EXTREMITIES: Edema 0+ Ulcer- NEUROLOGICAL: Alert and motor intact. SKIN: Rash- Bruise- LYMPHATICS: Edema- Ulcer- LABORATORY DATA: Show hemoglobin 7.7, potassium 3.4, creatinine 2.5. ASSESSMENT AND PLAN: 1. Chronic kidney disease stage 4, stable. 2. Hypertension, stable. 3. Acute kidney injury, stable. 4. Hypokalemia. Recommend 20 mEq potassium. 5. Metabolic acidosis, stable. No indication for dialysis.
[2018-04-28] MEDS: Furosemide 100 MG/10 ML VIAL SLOW IVP SCH (12:37)
[2018-04-28] MEDS: BORTEZOMIB SC SCH (17:36)
[2018-04-28] MEDS: HYDROcodone/Acetaminophen 5/325 mg Tablet PO PRN (20:08)
[2018-04-29] MEDS: Sucralfate 1 GM TAB PO SCH ×4 (09:11→20:32)
[2018-04-29] MEDS: HYDROcodone/Acetaminophen 5/325 mg Tablet PO PRN ×3 (09:12→19:16)
[2018-04-29] MEDS: valACYclovir 500 MG TAB PO SCH (09:12)
[2018-04-29] MEDS: Carvedilol 3.125 MG TAB PO SCH ×2 (09:12→18:11)
[2018-04-29] MEDS: Lidocaine 5% Patch TD SCH (09:13)
[2018-04-29 09:48] LABS: Anion Gap 14 mmol/L (10-20); BUN (Urea Nitrogen) 77 mg/dL (9.8-20.1); Calc. Creatinine Clearance 40 mL/min (70-130); Calcium 8.9 mg/dL (7.8-10.44); Carbon Dioxide 26 mmol/L (22-29); Chloride 109 mmol/L (98-107); Estimated GFR-MDRD 25; Glucose 87 mg/dL (70-105); Potassium 3.3 mmol/L (3.5-5.1); Sodium 146 mmol/L (136-145)
[2018-04-29 10:34] LABS: Band 14 % (5-11); Eosinophils 1 % (0-10); Hemoglobin 6.9 g/dL (12.0-16.0); Lymphocytes 10 % (21-51); MDiff Complete? YES; Mean Corpuscular HGB CONC 34.3 g/dL (32.0-36.0); Mean Corpuscular Hemoglobin 27.8 pg (27.0-31.0); Mean Corpuscular Volume 81.2 fL (78.0-98.0); Mean Platelet Volume 13.4 fL (7.4-10.4); Metamyelocyte 3 % (0-0); Monocytes 2 % (0-10); Neutrophil 17 % (42-75); PLT Morphology Comment Appears Decreased; Platelet Count 22 thou/uL (130-400); RBC Distribution Width 16.8 % (11.5-14.5); Reactive Lymphocytes 16 % (0-10); Red Blood Cell (RBC) Count 2.47 mill/uL (4.20-5.40)
--- NOTE | 2018-04-29 11:36 | PRG ---
DATE OF SERVICE: 04/29/2018 SUBJECTIVE: A 58-year-old female being seen for acute kidney injury. The patient denies any nausea, vomiting, or chest pain. PHYSICAL EXAMINATION: GENERAL: The patient is awake and alert. VITAL SIGNS: Afebrile, pulse 104, breathing 16, blood pressure 133/61. HEAD/NECK: Normocephalic. Atraumatic. EYES: EOMI. No deformity. EARS: Clear. No ulcers. NOSE: Intact. No lesions. MOUTH: Clear. No discharge. THROAT: Clear. No exudate. LUNGS: Clear. No crackles. CARDIAC: S1, S2. No rub. ABDOMEN: Benign. BS+. GENITALIA/RECTUM: Crowe absent. BACK/EXTREMITIES: Edema 0+ Ulcer- NEUROLOGICAL: Alert and motor intact. SKIN: Rash- Bruise- LYMPHATICS: Edema- Ulcer- LABORATORY DATA: Show hemoglobin 6.9, potassium 3.3, creatinine 2.4. ASSESSMENT AND RECOMMENDATIONS: 1. Chronic kidney disease stage 4, stable. 2. Hypertension, stable. 3. Anemia, stable. 4. Medications based on glomerular filtration rate are appropriate. No urgent indication for dialys is. 4. Hypokalemia. Would recommend potassium replacement.
[2018-04-29] MEDS: Furosemide 100 MG/10 ML VIAL SLOW IVP SCH (11:38)
--- NOTE | 2018-04-29 13:13 | PDOC.PN ---
- Subjective Encounter Start Date: 04/29/18 Encounter Start Time: 13:11 Pt seen for followup re: hypokalemia. Feels better today. - Objective MAR Reviewed: Yes Vital Signs & Weight: Vital Signs (12 hours) Temp Pulse Resp BP Pulse Ox 04/29/18 11:32 87 16 100/55 L 04/29/18 10:36 93 L 04/29/18 07:14 98.1 F 04/29/18 07:12 98.1 F 104 H 26 H 133/61 92 L 04/29/18 04:00 98.4 F 102 H 20 125/57 L 94 L Weight Admit Weight 199 lb Weight 213 lb 1.6 oz I&O: 04/28/18 04/29/18 04/30/18 06:59 06:59 06:59 Intake Total 1345 480 Output Total 1700 2275 Balance -355 -2309 Result Diagrams: 04/29/18 09:15 04/29/18 09:15 EKG Reviewed by me: Yes (Tele: sinus tachycardia) Phys Exam - Physical Examination Obese HEENT: moist MMs Neck: supple Respiratory: clear to auscultation bilateral S1, S2, tachy, reg Gastrointestinal: soft Neurological: moves all 4 limbs Psychiatric: normal affect Dx/Plan (1) Hypokalemia Code(s): E87.6 - HYPOKALEMIA Status: Acute Comment: replace potassium (2) DAISY (acute kidney injury) Code(s): N17.9 - ACUTE KIDNEY FAILURE, UNSPECIFIED Status: Acute Comment: ckd stage 4, creatinine 2.42 today. Pt declined dialysis. (3) Multiple myeloma Code(s): C90.00 - MULTIPLE MYELOMA NOT HAVING ACHIEVED REMISSION Status: Acute Comment: oncology following (4) Thrombocytopenia Code(s): D69.6 - THROMBOCYTOPENIA, UNSPECIFIED Status: Acute Comment: transfuse platelets, recheck (22K today) (5) HTN (hypertension) Code(s): I10 - ESSENTIAL (PRIMARY) HYPERTENSION Status: Chronic Comment: controlled (6) Symptomatic anemia Code(s): D64.9 - ANEMIA, UNSPECIFIED Status: Chronic Comment: transfuse pRBC - Plan * . Review of Systems - Review of Systems Constitutional: negative: fever, chills, sweats, weakness, malaise Respiratory: Cough, Dry, SOB with Excertion. negative: Shortness of Breath, Hemoptysis, Pleuritic Pain, Sputum, Wheezing Cardiovascular: negative: chest pain, palpitations, orthopnea, paroxysmal nocturnal dyspnea, edema, light headedness - Medications/Allergies Allergies/Adverse Reactions: Allergies Allergy/AdvReac Type Severity Reaction Status Date / Time fentanyl Allergy Verified 04/03/18 22:00 Medications: Current Medications Acetaminophen (Tylenol) 650 mg PO Q4H PRN PRN Reason: Headache/Fever or Pain Hydrocodone Bitart/Acetaminophen ([place] 5/325) 2 tab PO Q4H PRN PRN Reason: Moderate to Severe Pain (6-10) Last Admin: 04/29/18 09:12 Dose: 2 tab Bisacodyl (Dulcolax) 10 mg PO DAILYPRN PRN PRN Reason: Constipation Carvedilol (Coreg) 3.125 mg PO BID-[facility] Last Admin: 04/29/18 09:12 Dose: 3.125 mg Dexamethasone (Decadron) 40 mg PO 0900 [facility] Stop: 05/01/18 12:00 Furosemide (Lasix) 60 mg SLOW IVP 1200 [facility] Last Admin: 04/29/18 11:38 Dose: 60 mg Bortezomib 2.6 mg/ (Miscellaneous Medication) 1.04 mls @ 0 mls/hr SC 0900 [facility] Stop: 05/01/18 12:00 Last Admin: 04/28/18 17:36 Dose: Not Given Labetalol HCl (Normodyne) 10 mg SLOW IVP Q4H PRN PRN Reason: SBP Greater Than 180 Last Admin: 04/24/18 20:58 Dose: 10 mg Lidocaine (Lidoderm 5% Patch) 1 patch TD DAILY [facility] Last Admin: 04/29/18 09:13 Dose: Not Given Remove Lidocaine (Patch) 0 each FS 2100 [facility] Last Admin: 04/28/18 18:53 Dose: Not Given Ondansetron HCl (Zofran Odt) 4 mg PO Q6H PRN PRN Reason: Nausea/Vomiting Pantoprazole Sodium (Protonix) 40 mg PO DAILY [facility] Last Admin: 04/29/18 09:13 Dose: 40 mg Potassium Chloride (K-Dur) 40 meq PO ONE [facility] Sertraline HCl (Zoloft) 25 mg PO DAILY [facility] Last Admin: 04/29/18 09:13 Dose: 25 mg Sodium Chloride (Flush - Normal Saline) 10 ml IVF PRN PRN PRN Reason: Saline Flush Sucralfate (Carafate) 1 gm PO [facility] Last Admin: 04/29/18 11:39 Dose: 1 gm Tramadol HCl (Ultram) 100 mg PO Q6H PRN PRN Reason: Moderate to Severe Pain (6-10) Valacyclovir HCl (Valtrex) 500 mg PO QAM [facility] Last Admin: 04/29/18 09:12 Dose: 500 mg
[2018-04-29] MEDS ORDERED: Potassium Chloride 20 MEQ TAB PO SCH ×2 (13:30→16:15)
--- NOTE | 2018-04-29 16:30 | CON ---
DATE OF CONSULTATION: 04/29/2018 REASON FOR CONSULTATION: Nonsustained VT. HISTORY OF PRESENT ILLNESS: Mrs. Hernandez is a 58-year-old female who comes to the hospital for generalized weakness. She was diagnosed with symptomatic anemia as well as thrombocytopenia and acute kidney injury thought to be a combination of her multiple myeloma and dehydration. She has been in the hospital since the of last month. She has been on telemetry morning last few days and she was noted to have 13-beat run of a wide complex rhythm suggestive of ventricular tachycardia. Cardiology is being consulted for this. On my evaluation, Ms. Hernandez was completely asymptomatic during the episode. She denies any lightheadedness, no syncope or presyncope, no palpitation. She denies any chest pain, tightness or pressure. She is short of breath; however, her hemoglobin this morning is down to 6.9. It has been as low as 6.6. PAST MEDICAL HISTORY: 1. Multiple myeloma. 2. Colorectal cancer. 3. Hypertension. Pelvic fluid collection with vaginal bleeding in the past. 4. 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 PAST SURGICAL HISTORY: 1. Colostomy. 2. Colon resection. 3. . OUTPATIENT MEDICATIONS: 1. Lisinopril 20 mg a day. 2. [place] p.r.n. 3. Chlorthalidone 12.5 mg daily. ALLERGIES: FENTANYL. FAMILY HISTORY: Noncontributory. SOCIAL HISTORY: Everyday smoker. No alcohol or drugs. REVIEW OF SYSTEMS: A 12-point review of systems was done and is all negative unless stated in history of present illness. PHYSICAL EXAMINATION: VITAL SIGNS: Temperature 98.1, pulse 87, respiration rate 16, satting 96% on Venturi mask. Blood pressure 109/52. GENERAL: Awake. She seems very fatigued and has a hard time opening her eyes, but she is wide awake, in no distress. HEENT: Normocephalic, atraumatic. NECK: Supple. LUNGS: Clear. CARDIOVASCULAR: S1, S2, no S3, S4, no murmurs. ABDOMEN: Soft, otherwise. EXTREMITIES: No edema. SKIN: Warm and dry. LABORATORY WORK: Reviewed. White count of 27, hemoglobin 6.9, hematocrit 20, platelet count of 22, which is actually the highest has been she came in at 9. Coags are unremarkable. Chemistry with a sodium of 3.3 today, 3.4 yesterday and has been much better before the 3.7, creatinine is in the 2.4 range. She actually came in at 4.2 and has been slowly trickling down. Telemetry was reviewed. She did have a 13 beat of a wide complex rhythm highly suggestive of ventricular tachycardia, but nonsustained and asymptomatic. ASSESSMENT AND PLAN: 1. Nonsustained ventricular tachycardia. 2. Acute kidney injury. 3. Symptomatic anemia. 4. Multiple myeloma. PLAN: Prohibitive to do any sort of risk stratification with a heart catheterization given her anemia and her renal dysfunction. Her episode was asymptomatic in the setting of low potassium. We will recommend replacing potassium aggressively and we will start her on a beta miguelito. If she continues to have episodes of nonsustained VT or she becomes sustained, we may be a little more aggressive; however, at this point, we will be conservative. I would hold off on any amiodarone for now unless she continues to recur on beta miguelito. Thank you for letting us participate in the care of your patient. We follow. CHUCKYD
[2018-04-29] MEDS: BORTEZOMIB SC SCH (19:14)
[2018-04-30 07:04] LABS: Anion Gap 15 mmol/L (10-20); BUN (Urea Nitrogen) 70 mg/dL (9.8-20.1); Calc. Creatinine Clearance 40 mL/min (70-130); Carbon Dioxide 24 mmol/L (22-29); Chloride 111 mmol/L (98-107); Estimated GFR-MDRD 25; Glucose 66 mg/dL (70-105); Potassium 3.9 mmol/L (3.5-5.1); Sodium 146 mmol/L (136-145)
[2018-04-30] MEDS: HYDROcodone/Acetaminophen 5/325 mg Tablet PO PRN ×2 (07:10→17:34)
[2018-04-30] MEDS: Carvedilol 3.125 MG TAB PO SCH ×2 (08:40→17:34)
[2018-04-30 08:41] LABS: Band 11 % (5-11); Eosinophils 1 % (0-10); Hemoglobin 7.7 g/dL (12.0-16.0); Lymphocytes 7 % (21-51); MDiff Complete? YES; Mean Corpuscular HGB CONC 34.7 g/dL (32.0-36.0); Mean Corpuscular Hemoglobin 28.6 pg (27.0-31.0); Mean Corpuscular Volume 82.4 fL (78.0-98.0); Metamyelocyte 3 % (0-0); Monocytes 3 % (0-10); Neutrophil 14 % (42-75); Nucleated RBC 4 % (0); PLT Morphology Comment Appears Decreased; Platelet Count 37 thou/uL (130-400); RBC Distribution Width 16.1 % (11.5-14.5); Reactive Lymphocytes 19 % (0-10); White Blood Cell (WBC) Count 28.6 thou/uL (4.8-10.8)
[2018-04-30] MEDS: valACYclovir 500 MG TAB PO SCH (08:41)
[2018-04-30] MEDS: Sucralfate 1 GM TAB PO SCH ×4 (08:41→20:16)
[2018-04-30] MEDS: Lidocaine 5% Patch TD SCH (08:46)
[2018-04-30] MEDS: BORTEZOMIB SC SCH (10:41)
[2018-04-30] MEDS: Furosemide 100 MG/10 ML VIAL SLOW IVP SCH (11:53)
--- NOTE | 2018-04-30 13:30 | PRG ---
DATE OF SERVICE: 05/28/2018 SUBJECTIVE: A 58-year-old lady being seen for acute kidney injury. The patient denies any nausea, v omiting, or chest pain. The patient remains dyspneic. PHYSICAL EXAMINATION: GENERAL: Patient is awake. VITAL SIGNS: Afebrile, pulse 94, breathing 16, blood pressure was 117/53. HEAD/NECK: Normocephalic. Atraumatic. EYES: EOMI. No deformity. EARS: Clear. No ulcers. NOSE: Intact. No lesions. MOUTH: Clear. No discharge. THROAT: Clear. No exudate. LUNGS: Clear. No crackles. CARDIAC: S1, S2. No rub. ABDOMEN: Benign. BS+. GENITALIA/RECTUM: Crowe absent. BACK/EXTREMITIES: Edema 0+ Ulcer- NEUROLOGICAL: Alert and motor intact. SKIN: Rash- Bruise- LYMPHATICS: Edema- Ulcer- LABORATORY DATA: Show hemoglobin 7.7, sodium 146, creatinine 2.4. ASSESSMENT AND PLAN: 1. Chronic kidney disease stage 4, stable. 2. Hypertension, stable. 3. Anemia, stable. 4. Medications based on glomerular filtration rate are appropriate. 5. Hyponatremia. Recommend free fluid intake. I will sign off on this patient. Please reconsult a s needed.
--- NOTE | 2018-04-30 14:56 | PDOC.PN ---
- Subjective Encounter Start Date: 04/30/18 Encounter Start Time: 14:54 Pt seen for followup re: thrombocytopenia. Says she feels okay. No chest pain, shortness of breath, fevers or chills. - Objective MAR Reviewed: Yes Vital Signs & Weight: Vital Signs (12 hours) Temp Pulse Resp BP Pulse Ox 04/30/18 07:50 98.0 F 94 16 117/53 L 96 04/30/18 07:40 98.0 F 94 16 96 04/30/18 04:00 98.1 F 93 18 108/54 L 95 Weight Admit Weight 199 lb Weight 209 lb I&O: 04/29/18 04/30/18 05/01/18 06:59 06:59 06:59 Intake Total 480 1280 Output Total 0892 1425 Balance -1795 -145 Result Diagrams: 04/30/18 06:00 04/30/18 06:00 Additional Labs: Labs reviewed by me Phys Exam - Physical Examination Constitutional: NAD HEENT: moist MMs Neck: supple Respiratory: clear to auscultation bilateral Gastrointestinal: positive bowel sounds Neurological: moves all 4 limbs Psychiatric: normal affect Dx/Plan (1) Thrombocytopenia Code(s): D69.6 - THROMBOCYTOPENIA, UNSPECIFIED Status: Acute Comment: Improved after platelet transfusion (2) NSVT (nonsustained ventricular tachycardia) Code(s): I47.2 - VENTRICULAR TACHYCARDIA Status: Acute Comment: continue beta miguelito, no recurrence (3) DAISY (acute kidney injury) Code(s): N17.9 - ACUTE KIDNEY FAILURE, UNSPECIFIED Status: Acute Comment: stable, creatinine 2.40 today (4) Multiple myeloma Code(s): C90.00 - MULTIPLE MYELOMA NOT HAVING ACHIEVED REMISSION Status: Acute Comment: oncology following (5) HTN (hypertension) Code(s): I10 - ESSENTIAL (PRIMARY) HYPERTENSION Status: Chronic Comment: controlled (6) Symptomatic anemia Code(s): D64.9 - ANEMIA, UNSPECIFIED Status: Chronic Comment: Improved after pRBC transfusion (7) Hypokalemia Code(s): E87.6 - HYPOKALEMIA Status: Resolved - Plan * . Review of Systems - Review of Systems Respiratory: negative: Cough, Shortness of Breath, SOB with Excertion, Pleuritic Pain, Wheezing Cardiovascular: negative: chest pain, palpitations, orthopnea, paroxysmal nocturnal dyspnea, edema, light headedness - Medications/Allergies Allergies/Adverse Reactions: Allergies Allergy/AdvReac Type Severity Reaction Status Date / Time fentanyl Allergy Verified 04/03/18 22:00 Medications: Current Medications Acetaminophen (Tylenol) 650 mg PO Q4H PRN PRN Reason: Headache/Fever or Pain Hydrocodone Bitart/Acetaminophen ([place] 5/325) 2 tab PO Q4H PRN PRN Reason: Moderate to Severe Pain (6-10) Last Admin: 04/30/18 07:10 Dose: 2 tab Bisacodyl (Dulcolax) 10 mg PO DAILYPRN PRN PRN Reason: Constipation Carvedilol (Coreg) 3.125 mg PO BID-[facility] Last Admin: 04/30/18 08:40 Dose: 3.125 mg Dexamethasone (Decadron) 40 mg PO 0900 [facility] Stop: 05/01/18 12:00 Furosemide (Lasix) 60 mg SLOW IVP 1200 [facility] Last Admin: 04/30/18 11:53 Dose: 60 mg Bortezomib 2.6 mg/ (Miscellaneous Medication) 1.04 mls @ 0 mls/hr SC 0900 [facility] Stop: 05/01/18 12:00 Labetalol HCl (Normodyne) 10 mg SLOW IVP Q4H PRN PRN Reason: SBP Greater Than 180 Last Admin: 04/24/18 20:58 Dose: 10 mg Lidocaine (Lidoderm 5% Patch) 1 patch TD DAILY [facility] Last Admin: 04/30/18 08:46 Dose: Not Given Remove Lidocaine (Patch) 0 each FS 2100 [facility] Last Admin: 04/29/18 20:31 Dose: Not Given Ondansetron HCl (Zofran Odt) 4 mg PO Q6H PRN PRN Reason: Nausea/Vomiting Pantoprazole Sodium (Protonix) 40 mg PO DAILY [facility] Last Admin: 04/30/18 08:38 Dose: 40 mg Sertraline HCl (Zoloft) 25 mg PO DAILY [facility] Last Admin: 04/30/18 08:37 Dose: 25 mg Sodium Chloride (Flush - Normal Saline) 10 ml IVF PRN PRN PRN Reason: Saline Flush Sucralfate (Carafate) 1 gm PO ACHS [facility] Last Admin: 04/30/18 11:50 Dose: 1 gm Tramadol HCl (Ultram) 100 mg PO Q6H PRN PRN Reason: Moderate to Severe Pain (6-10) Valacyclovir HCl (Valtrex) 500 mg PO [facility] Last Admin: 04/30/18 08:41 Dose: 500 mg
--- NOTE | 2018-04-30 17:22 | PDOC.CTH ---
Cardiology Progress Note - Subjective No new issues. - Objective Vital Signs Temp Pulse Resp BP Pulse Ox 04/30/18 16:15 98.6 F 92 18 134/62 98 04/30/18 12:25 98.0 F 94 18 111/55 L 95 04/30/18 07:50 98.0 F 94 16 117/53 L 96 04/30/18 07:40 98.0 F 94 16 96 Admit Weight 199 lb Weight 209 lb 04/29/18 04/30/18 05/01/18 06:59 06:59 06:59 Intake Total 480 1280 Output Total 2015 1425 Balance -1795 -145 - Physical Examination General/Neuro: NAD Neck: no JVD present Lungs: unlabored respirations Heart: RRR Abdomen: NT/ND Extremities: + edema B (1+) - Telemetry Telemetry Rhythm: NSR - Labs Result Diagrams: 04/30/18 06:00 04/30/18 06:00 - Assessment/Plan 1. Non sustained VT 2. DAISY 3. Symptomtic anemia 4. Multiple myeloma. PLAN: - Continue BB for now. - No plan on intervention due to co morbidities.
--- NOTE | 2018-04-30 18:41 | PDOC.EVN ---
Event Note - Event Note Event Note: Pt seen for increased work of breathing a few minutes ago. Reports feeling better with DuoNeb. Respiratory rate decreased to 20, oxygen saturation improved to 94%. S1, S2, reg, L basal crackles, right-sided wheeze. CXR suggestive of LLL infiltrate, although it has imp[roved compared to the one done on Apr 28. Will start renally dosed empiric antibiotics for probable pneumonia in immunocompromised patient. Continue DuoNebs. If pt worsens overnight, may need transfer to IMCU for closer monitoring.
[2018-04-30] MEDS ORDERED: Vancomycin HCl 1 GM in Premix Bag 1 BAG IVPB SCH (18:45)
[2018-04-30] MEDS ORDERED: Piperacillin/Tazobactam 3.375 GM in Sodium Chloride 0.9% 100 ML IVPB SCH (19:00)
--- NOTE | 2018-04-30 20:04 | RAD ---
AP CHEST: Indication: History of decreased oxygen saturation. Increased respiratory effort. FINDINGS: There is stable mild to moderate cardiomegaly and mild pulmonary vascular congestion. The interstitia l and airspace opacity seen diffusely throughout both lungs have worsened, suspicious for either wors ening edema or pneumonia. No bill pleural effusion or pneumothorax is evident. Left costophrenic ang le is excluded. Left sided PICC line is noted. Osseous structures are unchanged. IMPRESSION: 1. Worsening interstitial airspace opacity bilaterally, suspicious more so for worsening pneumonia. T here is cardiomegaly and mild pulmonary vascular congestion. 2. Stable left sided PICC line. POS: BH
[2018-04-30] MEDS: Vancomycin HCl 1.5 GM in Sodium Chloride 0.9% 250 ML 300 ML IVPB SCH (20:20)
[2018-04-30] MEDS: Piperacillin/Tazobactam 3.375 GM in Sodium Chloride 0.9% 100 ML IVPB SCH (23:36)
[2018-05-01] MEDS: HYDROcodone/Acetaminophen 5/325 mg Tablet PO PRN (00:18)
[2018-05-01] MEDS ORDERED: Furosemide 40 MG/4 ML VIAL ONE (00:53)
[2018-05-01] MEDS ORDERED: Furosemide 40 MG/4 ML VIAL SLOW IVP SCH (01:00)
--- NOTE | 2018-05-01 02:22 | PDOC.EVN ---
Event Note - Event Note Event Note: paged by rn since pt has continue to deteriorate , needing higher level of oxygen started on NRBM @ 100 % an dsaturation still 91% mentation is not good, we will place in imcu and try bipap , since pt seems to be getting tired physically, if not improving might need intubation, this has been discussed with pt and family member and they are agreeable with plan.
[2018-05-01 05:39] LABS: Platelet Count 21 thou/uL (130-400)
[2018-05-01 05:43] LABS: Anion Gap 18 mmol/L (10-20); BUN (Urea Nitrogen) 68 mg/dL (9.8-20.1); Calc. Creatinine Clearance 35 mL/min (70-130); Calcium 9.1 mg/dL (7.8-10.44); Carbon Dioxide 24 mmol/L (22-29); Chloride 108 mmol/L (98-107); Estimated GFR-MDRD 22; Glucose 72 mg/dL (70-105); Potassium 4.1 mmol/L (3.5-5.1); Sodium 146 mmol/L (136-145)
[2018-05-01] MEDS: Piperacillin/Tazobactam 3.375 GM in Sodium Chloride 0.9% 100 ML IVPB SCH (06:03)
[2018-05-01] MEDS ORDERED: Dexamethasone 4 MG TAB PO SCH (09:00)
[2018-05-01] MEDS ORDERED: BORTEZOMIB SC SCH (09:00)
[2018-05-01] MEDS ORDERED: Dexamethasone 20 MG in Sodium Chloride 0.9% 50 ML IVPB SCH (09:30)
[2018-05-01] MEDS: Carvedilol 3.125 MG TAB PO SCH ×3 (09:48→18:06)
[2018-05-01] MEDS: Sucralfate 1 GM TAB PO SCH ×5 (09:48→21:10)
[2018-05-01] MEDS: valACYclovir 500 MG TAB PO SCH ×2 (09:48→09:56)
[2018-05-01] MEDS: Lidocaine 5% Patch TD SCH (09:48)
[2018-05-01 10:53] LABS: Band 8 % (5-11); Hemoglobin 7.5 g/dL (12.0-16.0); Lymphocytes 15 % (21-51); MDiff Complete? YES; Mean Corpuscular HGB CONC 34.1 g/dL (32.0-36.0); Mean Corpuscular Hemoglobin 28.2 pg (27.0-31.0); Mean Corpuscular Volume 82.6 fL (78.0-98.0); Mean Platelet Volume 13.4 fL (7.4-10.4); Metamyelocyte 8 % (0-0); Monocytes 2 % (0-10); Myelocyte 3 % (0-0); Neutrophil 12 % (42-75); Nucleated RBC 2 % (0); PLT Morphology Comment Appears Decreased; RBC Distribution Width 16.6 % (11.5-14.5); Reactive Lymphocytes 21 % (0-10); Red Blood Cell (RBC) Count 2.65 mill/uL (4.20-5.40); White Blood Cell (WBC) Count 35.3 thou/uL (4.8-10.8)
--- NOTE | 2018-05-01 10:56 | CON ---
DATE OF CONSULTATION: 05/01/2018 This consultation encompassed 70 minutes of time, of that time, greater than 50% was spent with the p atient and/or on the patient's unit in the hospital. REASON FOR CONSULTATION: Acute on chronic respiratory failure. HISTORY OF PRESENT ILLNESS: Ms. Hernandez is a 58-year-old female who looks to have first been admitted to the hospital on 04/17/2018. The patient is not giving me much in the way of history because she is currently on BiPAP, what I have is obtained from reviewing records and the chart. She has a fairl y new diagnosis of multiple myeloma. She has developed acute renal failure from that. Up until toda y she was refusing dialysis. She has developed more and more fluid overload and is currently in the IMCU on BiPAP. PAST MEDICAL HISTORY: 1. Multiple myeloma. 2. Colorectal cancer. 3. Hypertension. PAST SURGICAL HISTORY: 1. Colostomy. 2. Colon resection. 3. section. SOCIAL HISTORY: Does not consume alcohol, but smokes 1 pack per day. Does not use illicit drugs. FAMILY MEDICAL HISTORY: Unremarkable. CURRENT MEDICATIONS: Tylenol, DuoNebs, Dulcolax, Bortezomib, carvedilol, dexamethasone, furosemide, [place], labetalol, Lidoderm patch, Protonix, Zofran, Piperacillin, Zoloft, Carafate, Valtrex, vancomyc in. ALLERGIES: FENTANYL. REVIEW OF SYSTEMS: Cannot be obtained as patient is currently on mechanical ventilation. PHYSICAL EXAMINATION: VITAL SIGNS: Temperature 97.1 with no fever noted since 04/28/2018, pulse 103, respirations 17, O2 s at 96% on BiPAP, blood pressure 110/52. The patient is 5 feet 6 inches, weighs 201 pounds. She is c urrently on BiPAP. She is in respiratory discomfort when off the BiPAP. HEENT: Pupils react. Sclerae icteric. Oropharynx clear. NECK: No adenopathy or JVD. LUNGS: Inspiratory crackles bilaterally. CARDIOVASCULAR: S1, S2 regular, without murmur. ABDOMEN: Soft, obese, nontender, nondistended. EXTREMITIES: No clubbing, cyanosis, no edema. LABORATORY DATA: White blood cell count 28.6, hemoglobin 7.7, hematocrit 22.2, platelet count 37 (th at was from yesterday, today's labs are pending. Sodium 146, potassium 4.1, chloride 108, CO2 24, BU N 68, creatinine 2.7, glucose 72. Chest x-ray shows diffuse bilateral infiltrative changes, much worse than the time of admission. ASSESSMENT: 1. Acute renal failure for multiple myeloma. 2. Multiple myeloma. 3. Fluid overload. 4. Acute respiratory failure secondary to fluid overload. 5. Thrombocytopenia. 6. Anemia. PLAN: This patient needs dialysis or she will from volume overload. She is not making near enou gh urine to compensate some of her pulmonary findings, could be perhaps due to pneumonitis, but I rafael bt it. Of note, she is on several things that could compromise her renal function such as Valtrex, v ancomycin and the Piperacillin. RECOMMENDATIONS: 1. I would go ahead and adjust the dose of her antibiotic. 2. The patient is reconsidering dialysis. 3. Continue BiPAP or supplemental low flow oxygen as needed.
--- NOTE | 2018-05-01 11:41 | PRG ---
DATE OF SERVICE: 05/01/2018 SUBJECTIVE: This is a 58-year-old female being seen for acute kidney injury. The patient denies any nausea or vomiting, but is on BiPAP. PHYSICAL EXAMINATION: VITAL SIGNS: Afebrile, pulse of 100, breathing 16, blood pressure 110/52. OBJECTIVE: See above. Awake, alert, in no acute distress. GENERAL APPEARANCE AND MENTAL STATUS: Fair. HEAD/NECK: Normocephalic. Atraumatic. EYES: EOMI. No deformity. EARS: Clear. No ulcers. NOSE: Intact. No lesions. MOUTH: Clear. No discharge. THROAT: Clear. No exudate. LUNGS: Clear. No crackles. CARDIAC: S1, S2. No rub. ABDOMEN: Benign. BS+. GENITALIA/RECTUM: Crowe absent. BACK/EXTREMITIES: Edema 0+ Ulcer- NEUROLOGICAL: Alert and motor intact. SKIN: Rash- Bruise- LYMPHATICS: Edema- Ulcer- LABORATORY: Sodium is 146, creatinine 2.7. ASSESSMENT AND RECOMMENDATIONS: 1. Acute kidney injury with chronic kidney disease stage 4 with anuric plan HD due to Pulmonary edema CKD due to multiple myeloma. 2. Anemia, stable. 3. Medication based on glomerular filtration rate are appropriate. We will plan renal replacement therapy based on the patient's finding. The patient has failed diuretic therapy. Overall, prognosis is poor. Multiple myeloma, anemia, thrombocytopenia. The patient is having multiple organ failure at this time. MTDD
[2018-05-01] MEDS ORDERED: Heparin 10,000 UNITS/ 10 ML VIAL ONE (12:00)
[2018-05-01] MEDS: Furosemide 100 MG/10 ML VIAL SLOW IVP SCH (12:06)
--- NOTE | 2018-05-01 15:06 | PDOC.PN ---
- Subjective Encounter Start Date: 05/01/18 Encounter Start Time: 09:00 Pt seen for followup re: acute hypoxic respiratory failure. Denies chest pain. Feels tired. No nausea or vomiting. - Objective Vital Signs & Weight: Vital Signs (12 hours) Temp Pulse Resp BP Pulse Ox 05/01/18 12:00 96 05/01/18 11:18 97.4 F L 97 18 105/46 L 96 05/01/18 08:12 97.1 F L 103 H 17 96 05/01/18 07:43 97.1 F L 103 H 17 110/52 L 95 05/01/18 06:38 105 H 05/01/18 04:20 93 98 05/01/18 04:00 97.6 F 91 13 113/43 L 98 05/01/18 03:42 97.9 F 95 12 98 Weight Admit Weight 199 lb Weight 201 lb 3.2 oz I&O: 04/30/18 05/01/18 05/02/18 06:59 06:59 06:59 Intake Total 1280 700 Output Total 1425 1400 Balance -145 -700 Result Diagrams: 05/01/18 05:15 05/01/18 05:15 Phys Exam - Physical Examination Obese HEENT: moist MMs Neck: supple L basal cckles Cardiovascular: RRR Gastrointestinal: soft Neurological: moves all 4 limbs Psychiatric: normal affect Dx/Plan (1) Acute respiratory failure with hypoxia Code(s): J96.01 - ACUTE RESPIRATORY FAILURE WITH HYPOXIA Status: Acute Comment: Pt now in IMCU, on BiPAP and oxygen as needed. (2) Thrombocytopenia Code(s): D69.6 - THROMBOCYTOPENIA, UNSPECIFIED Status: Acute Comment: Platelet count decreased to 22 today, will transfuse platelets (3) NSVT (nonsustained ventricular tachycardia) Code(s): I47.2 - VENTRICULAR TACHYCARDIA Status: Acute Comment: pt is on beta miguelito (4) DAISY (acute kidney injury) Code(s): N17.9 - ACUTE KIDNEY FAILURE, UNSPECIFIED Status: Acute Comment: creatinine worsened to 2.70 (5) Multiple myeloma Code(s): C90.00 - MULTIPLE MYELOMA NOT HAVING ACHIEVED REMISSION Status: Acute Comment: oncology following (6) HTN (hypertension) Code(s): I10 - ESSENTIAL (PRIMARY) HYPERTENSION Status: Chronic Comment: controlled (7) Symptomatic anemia Code(s): D64.9 - ANEMIA, UNSPECIFIED Status: Chronic Comment: Improved after pRBC transfusion (8) Hypokalemia Code(s): E87.6 - HYPOKALEMIA Status: Resolved - Plan * . Review of Systems - Review of Systems Constitutional: weakness Respiratory: negative: Cough, Shortness of Breath, SOB with Excertion, Pleuritic Pain, Wheezing Cardiovascular: negative: chest pain, palpitations, orthopnea, paroxysmal nocturnal dyspnea, edema, light headedness Gastrointestinal: negative: Nausea, Vomiting, Abdominal Pain, Diarrhea, Constipation, Melena, Hematochezia - Medications/Allergies Allergies/Adverse Reactions: Allergies Allergy/AdvReac Type Severity Reaction Status Date / Time fentanyl Allergy Verified 04/03/18 22:00 Medications: Current Medications Acetaminophen (Tylenol) 650 mg PO Q4H PRN PRN Reason: Headache/Fever or Pain Hydrocodone Bitart/Acetaminophen ([place] 5/325) 2 tab PO Q4H PRN PRN Reason: Moderate to Severe Pain (6-10) Last Admin: 05/01/18 00:18 Dose: 2 tab Albuterol/Ipratropium (Duoneb) 3 ml NEB Q4H PRN PRN Reason: SOB &/or Wheezing Last Admin: 05/01/18 00:36 Dose: 3 ml Bisacodyl (Dulcolax) 10 mg PO DAILYPRN PRN PRN Reason: Constipation Carvedilol (Coreg) 3.125 mg PO BID-F [facility] Last Admin: 05/01/18 09:55 Dose: Not Given Furosemide (Lasix) 60 mg SLOW IVP 1200 [facility] Last Admin: 05/01/18 12:06 Dose: 60 mg Vancomycin HCl 1.5 gm/ Sodium (Chloride) 300 mls @ 200 mls/hr IVPB 2000 [facility] Last Admin: 04/30/18 20:20 Dose: 300 mls Piperacillin Sod/Tazobactam (Sod 2.25 gm/ Sodium Chloride) 100 mls @ 200 mls/ hr IVPB Q12HR [facility] Labetalol HCl (Normodyne) 10 mg SLOW IVP Q4H PRN PRN Reason: SBP Greater Than 180 Last Admin: 04/24/18 20:58 Dose: 10 mg Lidocaine (Lidoderm 5% Patch) 1 patch TD DAILY [facility] Last Admin: 05/01/18 09:48 Dose: Not Given Miscellaneous Medication (Pharmacy To Dose) 1 each IVPB PRN PRN PRN Reason: Pharmacy to dose Remove Lidocaine (Patch) 0 each FS 2100 [facility] Last Admin: 04/30/18 20:24 Dose: Not Given Ondansetron HCl (Zofran Odt) 4 mg PO Q6H PRN PRN Reason: Nausea/Vomiting Pantoprazole Sodium (Protonix) 40 mg PO DAILY [facility] Last Admin: 05/01/18 09:55 Dose: Not Given Sertraline HCl (Zoloft) 25 mg PO DAILY [facility] Last Admin: 05/01/18 09:56 Dose: Not Given Sodium Chloride (Flush - Normal Saline) 10 ml IVF PRN PRN PRN Reason: Saline Flush Sucralfate (Carafate) 1 gm PO ACHS [facility] Last Admin: 05/01/18 12:06 Dose: Not Given Tramadol HCl (Ultram) 100 mg PO Q6H PRN PRN Reason: Moderate to Severe Pain (6-10) Valacyclovir HCl (Valtrex) 500 mg PO QAM [facility] Last Admin: 05/01/18 09:56 Dose: Not Given
[2018-05-01 16:05] LABS: HBSAg Index 0.22 S/CO (0-0.99); Hep B Surf Ag Non-Reactive S/CO (NonReactive)
[2018-05-01] MEDS: Piperacillin/Tazobactam 2.25 GM in Sodium Chloride 0.9% 100 ML IVPB SCH ×2 (21:10→23:48)
[2018-05-01] MEDS: Vancomycin HCl 1.5 GM in Sodium Chloride 0.9% 250 ML 300 ML IVPB SCH ×2 (21:10→21:24)
--- NOTE | 2018-05-02 05:07 | PDOC.EVN ---
Event Note - Event Note Event Note: pt's family member has been met at bedside, he has raise concerns regarding pt not making urine, records have been reviewed and I have given details to them , have explained how serious pt's condition is, and pt's family member has expressed understanding of pt having " a blood cancer, and that her body was shutting down due to cancer", I have explained that it is expected with MM that she will suffer from kidney failure and also that that is the reason why she was getting HD, pt's family member has expressed that he does not understand why the kidneys are not producing urine and that he does not understand why she keeps getting worse. It does not seem that they are having realistic understanding and goals even after I have given details or are in denial. We will be pleased to assist our pt and family member with any further concerns.
[2018-05-02 05:56] LABS: Bilirubin Small (Negative); Blood, Urine Moderate (Negative); Clarity TURBID (Clear); Glucose, Urine (Dipstick) Negative (Negative); Leukocyte Small (Negative); Nitrite Negative (Negative); Protein, Urine (Dipstick) 100 mg/dL (Neg-Trace); Specific Gravity, Urine 1.017 (1.002-1.036); pH, Urine 5.5 (5.0-9.0)
[2018-05-02 05:56] LABS: Anion Gap 24 mmol/L (10-20); BUN (Urea Nitrogen) 86 mg/dL (9.8-20.1); Calc. Creatinine Clearance 26 mL/min (70-130); Calcium 8.6 mg/dL (7.8-10.44); Carbon Dioxide 18 mmol/L (22-29); Chloride 108 mmol/L (98-107); Estimated GFR-MDRD 17; Glucose 136 mg/dL (70-105); Potassium 4.2 mmol/L (3.5-5.1); Sodium 146 mmol/L (136-145)
[2018-05-02 06:02] LABS: Band 8 % (5-11); Eosinophils 1 % (0-10); Hemoglobin 7.5 g/dL (12.0-16.0); Lymphocytes 10 % (21-51); MDiff Complete? YES; Mean Corpuscular HGB CONC 33.8 g/dL (32.0-36.0); Mean Corpuscular Hemoglobin 27.9 pg (27.0-31.0); Mean Corpuscular Volume 82.5 fL (78.0-98.0); Mean Platelet Volume 12.5 fL (7.4-10.4); Metamyelocyte 1 % (0-0); Monocytes 5 % (0-10); Neutrophil 21 % (42-75); PLT Morphology Comment Appears Decreased; Platelet Count 30 thou/uL (130-400); RBC Distribution Width 17.1 % (11.5-14.5); Reactive Lymphocytes 3 % (0-10); Red Blood Cell (RBC) Count 2.67 mill/uL (4.20-5.40); Schistocytes SLIGHT = 2-5 cells (100X) (0-1/hpf); White Blood Cell (WBC) Count 23.3 thou/uL (4.8-10.8)
[2018-05-02 06:04] LABS: Pathc Cast-AUWi Flag 8.33 (0-2.49)
[2018-05-02 06:16] LABS: Bacteria/HPF Rare-Few HPF (None Seen)
[2018-05-02 06:17] LABS: Renal Epithelial 0-3 HPF (0-3); Transitional Epithelial 0-3 HPF (0-3); Yeast-All Forms None Seen HPF (None Seen)
[2018-05-02 06:18] LABS: Hyaline Casts/LPF 0-3 HYALINE CAST LPF (0-3 Hyaline); Manual Microscopic Reviewed? No Path Casts Seen
--- NOTE | 2018-05-02 08:15 | PRG ---
DATE OF SERVICE: 05/02/2018 The patient remains in the Intermediate Care Unit. She had one session of dialysis yesterday. PHYSICAL EXAMINATION: VITAL SIGNS: Her temperature is 96.5, pulse 92, respiration 16, O2 sat 100%, blood pressure 110/58. She is currently on 40% Ventimask, has not required BiPAP since dialysis yesterday, approximately 59 0 mL of fluid was removed. HEENT: Unremarkable. NECK: No JVD. LUNGS: Few inspiratory crackles at bases. CARDIOVASCULAR: S1, S2 regular. ABDOMEN: Soft. EXTREMITIES: Generalized edema throughout. LABORATORY DATA: White blood count 23.3, hematocrit 22.1, platelet count 30. Sodium 146, potassium 4.2, chloride 108, CO2 18, BUN 86, creatinine 3.4, glucose 136. ASSESSMENT: 1. Acute on chronic renal failure secondary to multiple myeloma. 2. Thrombocytopenia. 3. Pulmonary edema/fluid overload due to the kidney failure. RECOMMENDATIONS: 1. Continue dialysis for intermittent fluid removal. 2. Wean oxygen as tolerated. 3. The family needs to be educated regarding this patient's extremely poor prognosis.
[2018-05-02] MEDS ORDERED: Heparin 10,000 UNITS/ 10 ML VIAL ONE (09:00)
[2018-05-02] MEDS: Lidocaine 5% Patch TD SCH (12:18)
[2018-05-02] MEDS: Carvedilol 3.125 MG TAB PO SCH ×2 (12:18→17:59)
[2018-05-02] MEDS: Sucralfate 1 GM TAB PO SCH ×3 (12:18→21:00)
[2018-05-02] MEDS: valACYclovir 500 MG TAB PO SCH (12:18)
[2018-05-02] MEDS: Furosemide 100 MG/10 ML VIAL SLOW IVP SCH (12:33)
[2018-05-02] MEDS: Piperacillin/Tazobactam 2.25 GM in Sodium Chloride 0.9% 100 ML IVPB SCH ×2 (12:33)
--- NOTE | 2018-05-02 12:44 | PRG ---
DATE OF SERVICE: 05/02/2018 SUBJECTIVE: This is a 58-year-old female being seen for acute kidney injury. The patient remains an uric. PHYSICAL EXAMINATION: GENERAL: The patient is awake and alert. VITAL SIGNS: Pulse 69, breathing 16, blood pressure 102/59. OBJECTIVE: See above. Awake, alert, in no acute distress. GENERAL APPEARANCE AND MENTAL STATUS: Fair. HEAD/NECK: Normocephalic. Atraumatic. EYES: EOMI. No deformity. EARS: Clear. No ulcers. NOSE: Intact. No lesions. MOUTH: Clear. No discharge. THROAT: Clear. No exudate. LUNGS: Clear. No crackles. CARDIAC: S1, S2. No rub. ABDOMEN: Benign. BS+. GENITALIA/RECTUM: Crowe absent. BACK/EXTREMITIES: Edema 0+ Ulcer- NEUROLOGICAL: Alert and motor intact. SKIN: Rash- Bruise- LYMPHATICS: Edema- Ulcer- LABORATORY: Hemoglobin 7.5, potassium 4.2. ASSESSMENT AND RECOMMENDATIONS: 1. Stage 6 chronic kidney disease. We will plan dialysis. 2. Pulmonary edema. We will plan dialysis. 3. Uremia, plan dialysis. Overall, prognosis is poor.
--- NOTE | 2018-05-02 17:32 | PDOC.CTH ---
Cardiology Progress Note - Subjective She was transferred to [facility] for respiratory distress. HE has been dialyzed since and is doing better but still very weak. - Objective Vital Signs Temp Pulse Resp BP Pulse Ox 05/02/18 15:37 96.7 F L 100 16 108/53 L 99 05/02/18 11:29 96.7 F L 89 18 102/49 L 100 05/02/18 08:00 96.5 F L 92 16 98 05/02/18 07:30 96.5 F L 92 16 110/58 L 100 Admit Weight 199 lb Weight 197 lb 8.547 oz 05/01/18 05/02/18 05/03/18 06:59 06:59 06:59 Intake Total 700 510 Output Total 1400 920 Balance -700 -410 - Physical Examination General/Neuro: alert & oriented x3 Neck: no JVD present Lungs: unlabored respirations Heart: RRR Abdomen: NT/ND Extremities: + edema B (1+) - Telemetry Telemetry Rhythm: NSR - Labs Result Diagrams: 05/02/18 05:10 05/02/18 05:10 - Assessment/Plan 1. Non sustained VT 2. DAISY 3. Symptomtic anemia 4. Multiple myeloma. PLAN: - Continue BB for now. - No recurrence in VT since starting BB. - Will sign off. Please call with any questions.
--- NOTE | 2018-05-02 18:25 | PDOC.PN ---
- Subjective Encounter Start Date: 05/02/18 Encounter Start Time: 09:50 Pt seen for followup re: acute hypoxic respiratory failure. Reports feeling better, but tired at the same time. - Objective MAR Reviewed: Yes Vital Signs & Weight: Vital Signs (12 hours) Temp Pulse Resp BP Pulse Ox 05/02/18 15:37 96.7 F L 100 16 108/53 L 99 05/02/18 11:29 96.7 F L 89 18 102/49 L 100 05/02/18 08:00 96.5 F L 92 16 98 05/02/18 07:30 96.5 F L 92 16 110/58 L 100 Weight Admit Weight 199 lb Weight 197 lb 8.547 oz I&O: 05/01/18 05/02/18 05/03/18 06:59 06:59 06:59 Intake Total 700 510 346 Output Total 6461 205 4954 Balance -700 -410 -1154 Result Diagrams: 05/02/18 05:10 05/02/18 05:10 EKG Reviewed by me: Yes (Tele: NSR) Phys Exam - Physical Examination Constitutional: NAD HEENT: moist MMs Neck: supple Marcelo crackles Cardiovascular: RRR Gastrointestinal: soft Neurological: moves all 4 limbs Deviation from normal: appears tired Dx/Plan (1) Acute respiratory failure with hypoxia Code(s): J96.01 - ACUTE RESPIRATORY FAILURE WITH HYPOXIA Status: Acute Comment: Pt has been started on dialysis, reports improvement. (2) Thrombocytopenia Code(s): D69.6 - THROMBOCYTOPENIA, UNSPECIFIED Status: Acute Comment: Plts improved to 30K after yesterday's transfusion (3) NSVT (nonsustained ventricular tachycardia) Code(s): I47.2 - VENTRICULAR TACHYCARDIA Status: Acute Comment: no recurrence after starting beta miguelito (4) DIASY (acute kidney injury) Code(s): N17.9 - ACUTE KIDNEY FAILURE, UNSPECIFIED Status: Acute Comment: started on dialysis (5) Multiple myeloma Code(s): C90.00 - MULTIPLE MYELOMA NOT HAVING ACHIEVED REMISSION Status: Acute Comment: oncology following (6) HTN (hypertension) Code(s): I10 - ESSENTIAL (PRIMARY) HYPERTENSION Status: Chronic Comment: controlled (7) Symptomatic anemia Code(s): D64.9 - ANEMIA, UNSPECIFIED Status: Chronic Comment: Improved after pRBC transfusion (8) Hypokalemia Code(s): E87.6 - HYPOKALEMIA Status: Resolved - Plan * . Palliative care has been requested to revisit the patient re: goals of care. Review of Systems - Review of Systems Constitutional: weakness. negative: fever, chills, sweats, malaise Respiratory: SOB with Excertion. negative: Cough, Shortness of Breath, Pleuritic Pain, Wheezing - Medications/Allergies Allergies/Adverse Reactions: Allergies Allergy/AdvReac Type Severity Reaction Status Date / Time fentanyl Allergy Verified 04/03/18 22:00 Medications: Current Medications Acetaminophen (Tylenol) 650 mg PO Q4H PRN PRN Reason: Headache/Fever or Pain Hydrocodone Bitart/Acetaminophen ([place] 5/325) 2 tab PO Q4H PRN PRN Reason: Moderate to Severe Pain (6-10) Last Admin: 05/01/18 00:18 Dose: 2 tab Albuterol/Ipratropium (Duoneb) 3 ml NEB Q4H PRN PRN Reason: SOB &/or Wheezing Last Admin: 05/01/18 00:36 Dose: 3 ml Bisacodyl (Dulcolax) 10 mg PO DAILYPRN PRN PRN Reason: Constipation Carvedilol (Coreg) 3.125 mg PO BID-WM [facility] Last Admin: 05/02/18 17:59 Dose: Not Given Furosemide (Lasix) 60 mg SLOW IVP 1200 [facility] Last Admin: 05/02/18 12:33 Dose: 60 mg Vancomycin HCl 1.5 gm/ Sodium (Chloride) 300 mls @ 200 mls/hr IVPB 2000 [facility] Last Admin: 05/01/18 21:24 Dose: 300 mls Piperacillin Sod/Tazobactam (Sod 2.25 gm/ Sodium Chloride) 100 mls @ 200 mls/ hr IVPB 1200,2359 [facility] Last Admin: 05/02/18 12:33 Dose: 100 mls Labetalol HCl (Normodyne) 10 mg SLOW IVP Q4H PRN PRN Reason: SBP Greater Than 180 Last Admin: 04/24/18 20:58 Dose: 10 mg Lidocaine (Lidoderm 5% Patch) 1 patch TD DAILY [facility] Last Admin: 05/02/18 12:18 Dose: Not Given Miscellaneous Medication (Pharmacy To Dose) 1 each IVPB PRN PRN PRN Reason: Pharmacy to dose Remove Lidocaine (Patch) 0 each FS 2100 [facility] Last Admin: 05/01/18 21:10 Dose: Not Given Ondansetron HCl (Zofran Odt) 4 mg PO Q6H PRN PRN Reason: Nausea/Vomiting Pantoprazole Sodium (Protonix) 40 mg PO DAILY [facility] Last Admin: 05/02/18 12:18 Dose: Not Given Sertraline HCl (Zoloft) 25 mg PO DAILY [facility] Last Admin: 05/02/18 12:18 Dose: Not Given Sodium Chloride (Flush - Normal Saline) 10 ml IVF PRN PRN PRN Reason: Saline Flush Sucralfate (Carafate) 1 gm PO ACHS [facility] Last Admin: 05/02/18 18:00 Dose: Not Given Tramadol HCl (Ultram) 100 mg PO Q6H PRN PRN Reason: Moderate to Severe Pain (6-10) Valacyclovir HCl (Valtrex) 500 mg PO QAM [facility] Last Admin: 05/02/18 12:18 Dose: Not Given
[2018-05-02 19:39] LABS: Vancomycin, Trough 26.8 ug/mL
[2018-05-02] MEDS: Vancomycin HCl 1.5 GM in Sodium Chloride 0.9% 250 ML 300 ML IVPB SCH (20:50)
[2018-05-02] MEDS: HYDROcodone/Acetaminophen 5/325 mg Tablet PO PRN (20:58)
[2018-05-02] MEDS ORDERED: VANCOMYCIN IVPB PRN (22:26)
[2018-05-03] MEDS: Piperacillin/Tazobactam 2.25 GM in Sodium Chloride 0.9% 100 ML IVPB SCH ×3 (00:58→23:44)
[2018-05-03] MEDS: HYDROcodone/Acetaminophen 5/325 mg Tablet PO PRN ×3 (02:54→23:40)
--- NOTE | 2018-05-03 08:10 | PRG ---
DATE OF SERVICE: 05/03/2018 SUBJECTIVE: The patient is a little more talkative today than she has been. She has been weaned yanni n to a nasal cannula as far as her oxygen needs are concerned. PHYSICAL EXAMINATION: VITAL SIGNS: Temperature 97.6, pulse 90, respiration 16, O2 sat 100% on 3 liters, blood pressure ran ged between 92/41 up to 124/55. HEENT: Unremarkable. NECK: No JVD. CHEST: Fairly clear anteriorly. CARDIAC: S1, S2 regular, without murmur. ABDOMEN: Soft. EXTREMITIES: No edema. LABORATORY DATA: Were not done today. ASSESSMENT: 1. Acute on chronic renal failure - underlying process is multiple myeloma. 2. Pulmonary edema, which has improved with dialysis. 3. Thrombocytopenia. 4. Anemia. RECOMMENDATIONS: 1. Continue hemodialysis. 2. So far cultures are negative, I am not completely sure what we are treating with the antibiotics, so I would not go beyond 5 days with the Zosyn. 3. Patient can be transferred out to the telemetry unit. I think we can go ahead and stop the Lasix since she is now requiring dialysis for fluid removal. 4. The patient is a very poor understanding of her underlying illness. I have tried to explain to h er in the simplest terms that I know.
[2018-05-03] MEDS: Lidocaine 5% Patch TD SCH (10:01)
[2018-05-03] MEDS: Sucralfate 1 GM TAB PO SCH ×4 (10:01→20:40)
[2018-05-03] MEDS: Carvedilol 3.125 MG TAB PO SCH ×2 (10:01→18:27)
[2018-05-03] MEDS: valACYclovir 500 MG TAB PO SCH (10:04)
--- NOTE | 2018-05-03 12:44 | PDOC.PN ---
- Subjective Encounter Start Date: 05/03/18 Encounter Start Time: 09:40 Pt seen for followup re: acute hypoxic resp failure. Feels slightly better. No fevers or chills. No chest pain. - Objective MAR Reviewed: Yes Vital Signs & Weight: Vital Signs (12 hours) Temp Pulse Resp BP Pulse Ox 05/03/18 10:55 97.3 F L 91 18 110/39 L 99 05/03/18 07:55 97.6 F 90 16 96 05/03/18 07:37 97.6 F 90 16 92/41 L 100 05/03/18 04:00 97.0 F L 79 18 105/43 L 98 Weight Admit Weight 199 lb Weight 197 lb 5.019 oz I&O: 05/02/18 05/03/18 05/04/18 06:59 06:59 06:59 Intake Total 510 986 Output Total 920 1500 Balance -410 -514 Result Diagrams: 05/02/18 05:10 05/02/18 05:10 EKG Reviewed by me: Yes (Tele: NSR) Phys Exam - Physical Examination Obese HEENT: moist MMs Neck: supple Marcelo crackles Cardiovascular: RRR Gastrointestinal: soft Neurological: moves all 4 limbs Psychiatric: normal affect Dx/Plan (1) Acute respiratory failure with hypoxia Code(s): J96.01 - ACUTE RESPIRATORY FAILURE WITH HYPOXIA Status: Acute Comment: Due to volume overload, pt started on dialysis (2) Thrombocytopenia Code(s): D69.6 - THROMBOCYTOPENIA, UNSPECIFIED Status: Acute Comment: check labs tomorrow (3) NSVT (nonsustained ventricular tachycardia) Code(s): I47.2 - VENTRICULAR TACHYCARDIA Status: Acute Comment: no recurrence, continue beta miguelito (4) DAISY (acute kidney injury) Code(s): N17.9 - ACUTE KIDNEY FAILURE, UNSPECIFIED Status: Acute Comment: dialysis per nephrology service (5) Multiple myeloma Code(s): C90.00 - MULTIPLE MYELOMA NOT HAVING ACHIEVED REMISSION Status: Acute Comment: oncology following (6) HTN (hypertension) Code(s): I10 - ESSENTIAL (PRIMARY) HYPERTENSION Status: Chronic Comment: controlled (7) Symptomatic anemia Code(s): D64.9 - ANEMIA, UNSPECIFIED Status: Chronic Comment: Improved after pRBC transfusion (8) Hypokalemia Code(s): E87.6 - HYPOKALEMIA Status: Resolved - Plan * . Review of Systems - Review of Systems Constitutional: weakness. negative: fever, chills, sweats, malaise Respiratory: SOB with Excertion. negative: Cough, Shortness of Breath, Pleuritic Pain, Wheezing - Medications/Allergies Allergies/Adverse Reactions: Allergies Allergy/AdvReac Type Severity Reaction Status Date / Time fentanyl Allergy Verified 04/03/18 22:00 Medications: Current Medications Acetaminophen (Tylenol) 650 mg PO Q4H PRN PRN Reason: Headache/Fever or Pain Hydrocodone Bitart/Acetaminophen ([place] 5/325) 2 tab PO Q4H PRN PRN Reason: Moderate to Severe Pain (6-10) Last Admin: 05/03/18 02:54 Dose: 2 tab Albuterol/Ipratropium (Duoneb) 3 ml NEB Q4H PRN PRN Reason: SOB &/or Wheezing Last Admin: 05/01/18 00:36 Dose: 3 ml Bisacodyl (Dulcolax) 10 mg PO DAILYPRN PRN PRN Reason: Constipation Carvedilol (Coreg) 3.125 mg PO BID-WM [facility] Last Admin: 05/03/18 10:01 Dose: Not Given Piperacillin Sod/Tazobactam (Sod 2.25 gm/ Sodium Chloride) 100 mls @ 200 mls/ hr IVPB 1200,2359 [facility] Last Admin: 05/03/18 00:58 Dose: 100 mls Vancomycin HCl 1 gm/ Device 200 mls @ 200 mls/hr IVPB .PENDING LEVEL [facility] Labetalol HCl (Normodyne) 10 mg SLOW IVP Q4H PRN PRN Reason: SBP Greater Than 180 Last Admin: 04/24/18 20:58 Dose: 10 mg Lidocaine (Lidoderm 5% Patch) 1 patch TD DAILY [facility] Last Admin: 05/03/18 10:01 Dose: Not Given Miscellaneous Medication (Pharmacy To Dose) 1 each IVPB PRN PRN PRN Reason: Pharmacy to dose Remove Lidocaine (Patch) 0 each FS 2100 [facility] Last Admin: 05/02/18 20:59 Dose: Not Given Ondansetron HCl (Zofran Odt) 4 mg PO Q6H PRN PRN Reason: Nausea/Vomiting Pantoprazole Sodium (Protonix) 40 mg PO DAILY [facility] Last Admin: 05/03/18 10:02 Dose: Not Given Sertraline HCl (Zoloft) 25 mg PO DAILY [facility] Last Admin: 05/03/18 10:02 Dose: Not Given Sodium Chloride (Flush - Normal Saline) 10 ml IVF PRN PRN PRN Reason: Saline Flush Sucralfate (Carafate) 1 gm PO ACHS [facility] Last Admin: 05/03/18 12:30 Dose: Not Given Tramadol HCl (Ultram) 100 mg PO Q6H PRN PRN Reason: Moderate to Severe Pain (6-10) Valacyclovir HCl (Valtrex) 500 mg PO QAM [facility] Last Admin: 05/03/18 10:04 Dose: Not Given
[2018-05-03 14:32] LABS: Hemoglobin 7.2 g/dL (12.0-16.0); Mean Corpuscular HGB CONC 33.8 g/dL (32.0-36.0); Mean Corpuscular Hemoglobin 27.7 pg (27.0-31.0); Mean Platelet Volume 14.3 fL (7.4-10.4); Platelet Count 21 thou/uL (130-400); RBC Distribution Width 17.2 % (11.5-14.5); Red Blood Cell (RBC) Count 2.59 mill/uL (4.20-5.40)
[2018-05-03 14:54] LABS: White Blood Cell (WBC) Count 29.6 thou/uL (4.8-10.8)
[2018-05-03 14:55] LABS: Albumin 3.1 g/dL (3.5-5.0); Anion Gap 19 mmol/L (10-20); Anisocytosis SLIGHT = 6-15 cells (100X) (0-5/hpf); BUN (Urea Nitrogen) 68 mg/dL (9.8-20.1); BUN/Creatinine Ratio 15.93; Band 8 % (5-11); Calc. Creatinine Clearance 21 mL/min (70-130); Calcium 8.8 mg/dL (7.8-10.44); Carbon Dioxide 24 mmol/L (22-29); Chloride 104 mmol/L (98-107); Eosinophils 3 % (0-10); Estimated GFR-MDRD 13; Glucose 69 mg/dL (70-105); Lymphocytes 21 % (21-51); MDiff Complete? YES; Monocytes 2 % (0-10); Myelocyte 1 % (0-0); Neutrophil 32 % (42-75); Nucleated RBC 2 % (0); PLT Morphology Comment Appears Decreased; Phosphorus 2.2 mg/dL (2.3-4.7); Polychromasia SLIGHT = 2-3 cells (100X) (0-2/hpf); Reactive Lymphocytes 12 % (0-10); Sodium 143 mmol/L (136-145); Target Cells SLIGHT = 2-5 cells (100X) (0-1/hpf)
--- NOTE | 2018-05-03 18:31 | PRG ---
DATE OF SERVICE: 05/03/2018 SUBJECTIVE: This is a 58-year-old female who was seen for end-stage renal disease. The patient remains anuric. PHYSICAL EXAMINATION: GENERAL APPEARANCE: The patient is resting. VITAL SIGNS: Afebrile, pulse 71, breathing 16, blood pressure 100/52. HEAD/NECK: Normocephalic. Atraumatic. EYES: EOMI. No deformity. EARS: Clear. No ulcers. NOSE: Intact. No lesions. MOUTH: Clear. No discharge. THROAT: Clear. No exudate. LUNGS: Clear. No crackles. CARDIAC: S1, S2. No rub. ABDOMEN: Benign. BS+. GENITALIA/RECTUM: Crowe absent. BACK/EXTREMITIES: Edema 0+ Ulcer- NEUROLOGICAL: Alert and motor intact. SKIN: Rash- Bruise- LYMPHATICS: Edema- Ulcer- LABORATORY DATA: Show hemoglobin 7.2, potassium 4.0, BUN 68. ASSESSMENT AND RECOMMENDATIONS: 1. Stage 6 chronic kidney disease, plan dialysis tomorrow. 2. Hyponatremia, improved. 3. Hypertension, stable. 4. Medications based on glomerular filtration rate are appropriate. 5. Volume overload. Patient is unable to tolerate much ultrafiltration due to low blood pressures. MTDD
[2018-05-04] MEDS: HYDROcodone/Acetaminophen 5/325 mg Tablet PO PRN ×3 (05:37→21:33)
[2018-05-04 05:47] LABS: Anion Gap 19 mmol/L (10-20); BUN (Urea Nitrogen) 74 mg/dL (9.8-20.1); Calc. Creatinine Clearance 16 mL/min (70-130); Calcium 8.7 mg/dL (7.8-10.44); Carbon Dioxide 23 mmol/L (22-29); Chloride 104 mmol/L (98-107); Estimated GFR-MDRD 10; Glucose 60 mg/dL (70-105); Hemoglobin 6.4 g/dL (12.0-16.0); Mean Corpuscular Hemoglobin 28.1 pg (27.0-31.0); Mean Corpuscular Volume 82.7 fL (78.0-98.0); Platelet Count 12 thou/uL (130-400); Potassium 4.2 mmol/L (3.5-5.1); RBC Distribution Width 16.8 % (11.5-14.5); Red Blood Cell (RBC) Count 2.27 mill/uL (4.20-5.40); Sodium 142 mmol/L (136-145); White Blood Cell (WBC) Count 28.7 thou/uL (4.8-10.8)
[2018-05-04 06:07] LABS: Band 6 % (5-11); Basophilic Stippling SLIGHT = 1-2 cells (100X) (None Seen); Differential Comment Atypical Mono-like; Eosinophils 1 % (0-10); Hypochromia MODERATE=16-30 cells (100X) (0-5/hpf); Lymphocytes 42 % (21-51); MDiff Complete? YES; Microcytosis MODERATE=15-30 cells (100X) (0-5/hpf); Monocytes 2 % (0-10); Neutrophil 34 % (42-75); Nucleated RBC 3 % (0); PLT Morphology Comment Appears Decreased; Target Cells SLIGHT = 2-5 cells (100X) (0-1/hpf)
[2018-05-04] MEDS ORDERED: PRE FILLED SC SCH (08:30)
[2018-05-04] MEDS ORDERED: BORTEZOMIB SC SCH (08:30)
--- NOTE | 2018-05-04 08:32 | PRG ---
DATE OF SERVICE: 05/04/2018 The patient is feeling somewhat better. PHYSICAL EXAMINATION: VITAL SIGNS: Temperature 97.1, pulse 88, respirations 20, O2 sat 99%, blood pressure 93/46. 24 hour intake 1610, output 1500 by dialysis. No significant urine output. HEENT: Unremarkable. NECK: No adenopathy or JVD. LUNGS: Fairly clear anteriorly. CARDIAC: S1 and S2 regular. ABDOMEN: Soft. EXTREMITIES: Trace edema. LABORATORY DATA: White blood cell count 28.7, hemoglobin 6.4, hematocrit 18.7, platelet count 12. S odium 142, potassium 4.2, chloride 104, CO2 23, BUN 74, creatinine 5.5, glucose 60. ASSESSMENT: 1. Multiple myeloma. 2. Severe anemia/thrombocytopenia. 3. Acute renal failure secondary to multiple myeloma. RECOMMENDATIONS: 1. If at all possible, I would recommend transfusing her with packed red blood cells during the next hemodialysis session. 2. Awaiting transfer out to the telemetry floor. 3. Continue hemodialysis. 4. Since she does not appear overtly septic, I will go ahead and change her over to oral cephalospor in from the Zosyn. 5. If vancomycin is not needed I would consider stopping that. There is nothing in the cultures patrick t would indicate that this is a Staphylococcal infection. The elevated white blood cell count may be mediated by her marrow.
[2018-05-04 09:38] LABS: Vancomycin, Random 41.3 ug/mL (See Comment)
[2018-05-04] MEDS: Carvedilol 3.125 MG TAB PO SCH ×2 (09:42→15:50)
[2018-05-04] MEDS: Sucralfate 1 GM TAB PO SCH ×4 (09:42→21:29)
[2018-05-04] MEDS: Lidocaine 5% Patch TD SCH (09:43)
[2018-05-04] MEDS ORDERED: Vancomycin HCl 1 GM in Premix Bag 1 BAG IVPB SCH ×2 (10:00→10:15)
[2018-05-04] MEDS ORDERED: Vancomycin HCl 500 MG in Sodium Chloride 0.9% 100 ML IVPB SCH (10:15)
[2018-05-04] MEDS ORDERED: Vancomycin HCl 1.25 GM in Sodium Chloride 0.9% 250 ML 250 ML IVPB SCH (10:15)
[2018-05-04] MEDS ORDERED: Vancomycin HCl 750 MG in Sodium Chloride 0.9% 250 ML 250 ML IVPB SCH (10:15)
[2018-05-04] MEDS ORDERED: HOLD VANCOMYCIN FOR LEVEL >20 FS SCH (10:15)
--- NOTE | 2018-05-04 10:43 | PRG ---
DATE OF SERVICE: 05/04/2018 SUBJECTIVE: A 58-year-old female being seen for end-stage renal disease. Patient denies any nausea, vomiting or chest pain. PHYSICAL EXAMINATION: GENERAL: Patient is awake, alert. VITAL SIGNS: Afebrile, pulse 60, breathing 16, blood pressure 103/52. OBJECTIVE: See above. Awake, alert, in no acute distress. GENERAL APPEARANCE AND MENTAL STATUS: Fair. HEAD/NECK: Normocephalic. Atraumatic. EYES: EOMI. No deformity. EARS: Clear. No ulcers. NOSE: Intact. No lesions. MOUTH: Clear. No discharge. THROAT: Clear. No exudate. LUNGS: Clear. No crackles. CARDIAC: S1, S2. No rub. ABDOMEN: Benign. BS+. GENITALIA/RECTUM: Crowe absent. BACK/EXTREMITIES: Edema 0+ Ulcer- NEUROLOGICAL: Alert and motor intact. SKIN: Rash- Bruise- LYMPHATICS: Edema- Ulcer- LABORATORY DATA: Hemoglobin 6.4, creatinine 5.49. ASSESSMENT AND RECOMMENDATIONS: 1. Acute kidney injury on chronic kidney disease, dialysis dependent. 2. Acute tubular necrosis due to multiple myeloma. 3. Hyperkalemia, stable. 4. Anemia. Would recommend 2 units of packed red blood cell transfusion. Overall, prognosis is extremely poor.
[2018-05-04] MEDS ORDERED: Bortezomib 3.5 MG SDV VIAL SC SCH (12:00)
[2018-05-04] MEDS: valACYclovir 500 MG TAB PO SCH (15:50)
[2018-05-04] MEDS: Cefdinir 300 MG CAP PO SCH (15:56)
--- NOTE | 2018-05-04 16:32 | PDOC.PN ---
- Subjective Encounter Start Date: 05/04/18 Encounter Start Time: 16:30 Subjective: lethargic, no sob, moves all extremities - Objective MAR Reviewed: Yes Vital Signs & Weight: Vital Signs (12 hours) Temp Pulse Pulse Resp BP BP Pulse Ox 05/04/18 15:23 98.1 F 99 22 H 113/54 L 93 L 05/04/18 12:31 98 F 89 16 95/45 L 05/04/18 12:15 98 F 88 16 100/53 L 05/04/18 12:00 98 F 90 16 104/54 L 05/04/18 11:45 98 F 90 16 101/55 L 05/04/18 11:30 98 F 91 16 101/45 L 05/04/18 10:45 97.8 F 87 16 100/46 L 05/04/18 10:30 98 F 88 18 103/49 L 05/04/18 10:15 98.1 F 89 18 91/44 L 05/04/18 10:02 98 F 87 18 103/47 L 05/04/18 08:00 98 F 88 18 99 05/04/18 07:20 97.1 F L 88 20 93/46 L 99 05/04/18 05:35 90 103/52 L Weight Admit Weight 199 lb Weight 194 lb 7.163 oz I&O: 05/03/18 05/04/18 05/05/18 06:59 06:59 06:59 Intake Total 986 610 700 Output Total 1500 150 Balance -514 460 700 Result Diagrams: 05/04/18 05:20 05/04/18 05:20 Phys Exam - Physical Examination HEENT: PERRLA, moist MMs Neck: no JVD, supple Respiratory: no wheezing, no rales Cardiovascular: RRR, no significant murmur Gastrointestinal: soft, no distention, positive bowel sounds Musculoskeletal: pulses present, edema present Neurological: non-focal, moves all 4 limbs Dx/Plan (1) ESRD (end stage renal disease) on dialysis Code(s): N18.6 - END STAGE RENAL DISEASE; Z99.2 - DEPENDENCE ON RENAL DIALYSIS Status: Acute Comment: initiated on HD this admission (2) Acute respiratory failure with hypoxia Code(s): J96.01 - ACUTE RESPIRATORY FAILURE WITH HYPOXIA Status: Resolved Comment: Due to volume overload, pt started on dialysis (3) Multiple myeloma Code(s): C90.00 - MULTIPLE MYELOMA NOT HAVING ACHIEVED REMISSION Status: Chronic Comment: oncology following (4) Thrombocytopenia Code(s): D69.6 - THROMBOCYTOPENIA, UNSPECIFIED Status: Acute (5) HTN (hypertension) Code(s): I10 - ESSENTIAL (PRIMARY) HYPERTENSION Status: Chronic Qualifiers: Hypertension type: essential hypertension Qualified Code(s): I10 - Essential (primary) hypertension Comment: controlled (6) Sepsis Code(s): A41.9 - SEPSIS, UNSPECIFIED ORGANISM Status: Resolved Qualifiers: Sepsis type: sepsis due to unspecified organism Qualified Code(s): A41.9 - Sepsis, unspecified organism - Plan is on omnicef, will dc vanc -: poor functional status, poor prognosis, palliative care is seeing pt -: nebs, PT to mobilize more as tolerated -: will need swing bed -: ?code status/hospice options to be d/w by palliative care * . Review of Systems - Medications/Allergies Allergies/Adverse Reactions: Allergies Allergy/AdvReac Type Severity Reaction Status Date / Time fentanyl Allergy Verified 04/03/18 22:00 Medications: Current Medications Acetaminophen (Tylenol) 650 mg PO Q4H PRN PRN Reason: Headache/Fever or Pain Hydrocodone Bitart/Acetaminophen ([place] 5/325) 2 tab PO Q4H PRN PRN Reason: Moderate to Severe Pain (6-10) Last Admin: 05/04/18 15:50 Dose: 2 tab Albuterol/Ipratropium (Duoneb) 3 ml NEB Q4H PRN PRN Reason: SOB &/or Wheezing Last Admin: 05/01/18 00:36 Dose: 3 ml Bisacodyl (Dulcolax) 10 mg PO DAILYPRN PRN PRN Reason: Constipation Carvedilol (Coreg) 3.125 mg PO BID-WM [facility] Last Admin: 05/04/18 15:50 Dose: 3.125 mg Cefdinir (Omnicef) 300 mg PO DAILY [facility] Last Admin: 05/04/18 15:56 Dose: 300 mg Bortezomib 2.6 mg/ (Miscellaneous Medication) 1.04 mls @ 0 mls/hr SC Q7D [facility] Vancomycin HCl 1.25 gm/ Sodium (Chloride) 250 mls @ 166.667 mls/hr IVPB WILLCALL [facility] Vancomycin HCl 1 gm/ Device 200 mls @ 200 mls/hr IVPB WILLCALL [facility] Vancomycin HCl 750 mg/ Sodium (Chloride) 250 mls @ 250 mls/hr IVPB [facility] Vancomycin HCl 500 mg/ Sodium (Chloride) 100 mls @ 100 mls/hr IVPB [facility] Labetalol HCl (Normodyne) 10 mg SLOW IVP Q4H PRN PRN Reason: SBP Greater Than 180 Last Admin: 04/24/18 20:58 Dose: 10 mg Lidocaine (Lidoderm 5% Patch) 1 patch TD DAILY [facility] Last Admin: 05/04/18 09:43 Dose: Not Given Miscellaneous Medication (Pharmacy To Dose) 1 each IVPB PRN PRN PRN Reason: Pharmacy to dose Remove Lidocaine (Patch) 0 each FS 2100 [facility] Last Admin: 05/03/18 20:40 Dose: Not Given Hold Vancomycin For (Level >20) 0 each FS .AT DIALYSIS [facility] Ondansetron HCl (Zofran Odt) 4 mg PO Q6H PRN PRN Reason: Nausea/Vomiting Pantoprazole Sodium (Protonix) 40 mg PO DAILY [facility] Last Admin: 05/04/18 15:51 Dose: 40 mg Sertraline HCl (Zoloft) 25 mg PO DAILY [facility] Last Admin: 05/04/18 15:50 Dose: 25 mg Sodium Chloride (Flush - Normal Saline) 10 ml IVF PRN PRN PRN Reason: Saline Flush Sucralfate (Carafate) 1 gm PO ACHS [facility] Last Admin: 05/04/18 15:56 Dose: 1 gm Tramadol HCl (Ultram) 100 mg PO Q6H PRN PRN Reason: Moderate to Severe Pain (6-10) Valacyclovir HCl (Valtrex) 500 mg PO QAM [facility] Last Admin: 05/04/18 15:50 Dose: 500 mg
--- NOTE | 2018-05-05 08:52 | PRG ---
DATE OF SERVICE: 05/05/2018 SUBJECTIVE: This is a 58-year-old female being seen for chronic kidney disease. Denies any nausea o r vomiting, but has dyspnea on exertion. PHYSICAL EXAMINATION: VITAL SIGNS: Afebrile, pulse is 103, blood pressure 116/55. OBJECTIVE: See above. Awake, alert, in no acute distress. GENERAL APPEARANCE AND MENTAL STATUS: Fair. HEAD/NECK: Normocephalic. Atraumatic. EYES: EOMI. No deformity. EARS: Clear. No ulcers. NOSE: Intact. No lesions. MOUTH: Clear. No discharge. THROAT: Clear. No exudate. LUNGS: Clear. No crackles. CARDIAC: S1, S2. No rub. ABDOMEN: Benign. BS+. GENITALIA/RECTUM: Crowe absent. BACK/EXTREMITIES: Edema 0+ Ulcer- NEUROLOGICAL: Alert and motor intact. SKIN: Rash- Bruise- LYMPHATICS: Edema- Ulcer- LABORATORY: Today's hemoglobin is pending. ASSESSMENT AND RECOMMENDATIONS: 1. Stage 6 chronic kidney disease, plan hemodialysis. 2. Hypertension, stable. 3. Anemia, stable. 4. Medication based on GFR are appropriate. Overall, prognosis remains poor.
[2018-05-05 08:54] LABS: Hemoglobin 8.4 g/dL (12.0-16.0)
[2018-05-05 09:05] LABS: Anion Gap 20 mmol/L (10-20); BUN (Urea Nitrogen) 33 mg/dL (9.8-20.1); Calc. Creatinine Clearance 21 mL/min (70-130); Calcium 8.6 mg/dL (7.8-10.44); Carbon Dioxide 22 mmol/L (22-29); Chloride 101 mmol/L (98-107); Estimated GFR-MDRD 13; Glucose 83 mg/dL (70-105); Potassium 3.6 mmol/L (3.5-5.1); Sodium 139 mmol/L (136-145)
--- NOTE | 2018-05-05 09:34 | PRG ---
DATE OF SERVICE: 05/05/2018 SUBJECTIVE: The patient says she is doing okay. She is noted to still be wearing a Ventimask. PHYSICAL EXAMINATION: VITAL SIGNS: O2 sats in the mid 90s, temperature 98.0, pulse 115, respirations 22, blood pressure 11 6/55. HEENT: Unremarkable. NECK: No JVD. LUNGS: Fine inspiratory crackles bilaterally. CARDIAC: S1, S2 regular. ABDOMEN: Soft. EXTREMITIES: Edematous. LABORATORY: Hemoglobin 8.4, hematocrit 23.8. ASSESSMENT: 1. Fluid overload from acute on chronic renal failure. 2. Multiple myeloma. PLAN: The main thing to do is continue dialysis and fluid removal. Transfuse intermittently as need ed. I will continue to see the patient intermittently as needed.
[2018-05-05] MEDS: Cefdinir 300 MG CAP PO SCH (09:47)
[2018-05-05] MEDS: valACYclovir 500 MG TAB PO SCH (09:48)
[2018-05-05] MEDS: Sucralfate 1 GM TAB PO SCH ×4 (09:48→21:17)
[2018-05-05] MEDS: Carvedilol 3.125 MG TAB PO SCH ×2 (09:49→18:33)
[2018-05-05] MEDS: Lidocaine 5% Patch TD SCH ×2 (09:53)
[2018-05-05] MEDS: HYDROcodone/Acetaminophen 5/325 mg Tablet PO PRN ×2 (09:56→15:25)
--- NOTE | 2018-05-05 10:11 | PDOC.PN ---
- Subjective Encounter Start Date: 05/05/18 Encounter Start Time: 08:45 Subjective: is more awake but still lethargic -: no sob, is moving all extremities slowly - Objective MAR Reviewed: Yes Vital Signs & Weight: Vital Signs (12 hours) Temp Pulse Resp BP Pulse Ox 05/05/18 07:35 98.0 F 115 H 22 H 116/55 L 95 05/05/18 04:00 98.4 F 114 H 20 127/58 L 98 05/05/18 00:00 98.8 F 94 16 99/52 L 98 Weight Admit Weight 199 lb Weight 194 lb 14.4 oz I&O: 05/04/18 05/05/18 05/06/18 06:59 06:59 06:59 Intake Total 610 700 Output Total 150 Balance 460 700 Result Diagrams: 05/05/18 08:35 05/05/18 08:35 Phys Exam - Physical Examination HEENT: PERRLA, moist MMs Neck: no JVD, supple Respiratory: no wheezing, no rales Cardiovascular: RRR, no significant murmur Gastrointestinal: soft, non-tender, positive bowel sounds Musculoskeletal: pulses present, edema present Neurological: non-focal, moves all 4 limbs Psychiatric: normal affect, A&O x 3 Dx/Plan (1) ESRD (end stage renal disease) on dialysis Code(s): N18.6 - END STAGE RENAL DISEASE; Z99.2 - DEPENDENCE ON RENAL DIALYSIS Status: Acute Comment: initiated on HD this admission (2) Acute respiratory failure with hypoxia Code(s): J96.01 - ACUTE RESPIRATORY FAILURE WITH HYPOXIA Status: Resolved Comment: Due to volume overload, pt started on dialysis (3) Multiple myeloma Code(s): C90.00 - MULTIPLE MYELOMA NOT HAVING ACHIEVED REMISSION Status: Chronic Qualifiers: Multiple myeloma remission status: not in remission Qualified Code(s): C90.00 - Multiple myeloma not having achieved remission Comment: oncology following (4) Thrombocytopenia Code(s): D69.6 - THROMBOCYTOPENIA, UNSPECIFIED Status: Acute (5) HTN (hypertension) Code(s): I10 - ESSENTIAL (PRIMARY) HYPERTENSION Status: Chronic Qualifiers: Hypertension type: essential hypertension Qualified Code(s): I10 - Essential (primary) hypertension Comment: controlled (6) Sepsis Code(s): A41.9 - SEPSIS, UNSPECIFIED ORGANISM Status: Resolved Qualifiers: Sepsis type: sepsis due to unspecified organism Qualified Code(s): A41.9 - Sepsis, unspecified organism - Plan HD with fluid removal as tolerated, prognosis poor -: continue small dose of coreg -: on omnicef, off all iv antibiotics from yesterday -: PT/OT to ambulate as tolerated -: Palliative care is talking to family/patient, ?code status/goals of care/ * . Review of Systems - Medications/Allergies Allergies/Adverse Reactions: Allergies Allergy/AdvReac Type Severity Reaction Status Date / Time fentanyl Allergy Verified 04/03/18 22:00 Medications: Current Medications Acetaminophen (Tylenol) 650 mg PO Q4H PRN PRN Reason: Headache/Fever or Pain Hydrocodone Bitart/Acetaminophen ([place] 5/325) 2 tab PO Q4H PRN PRN Reason: Moderate to Severe Pain (6-10) Last Admin: 05/05/18 09:56 Dose: 2 tab Albuterol/Ipratropium (Duoneb) 3 ml NEB Q4H PRN PRN Reason: SOB &/or Wheezing Last Admin: 05/01/18 00:36 Dose: 3 ml Bisacodyl (Dulcolax) 10 mg PO DAILYPRN PRN PRN Reason: Constipation Carvedilol (Coreg) 3.125 mg PO BID-WM [facility] Last Admin: 05/05/18 09:49 Dose: 3.125 mg Cefdinir (Omnicef) 300 mg PO DAILY [facility] Last Admin: 05/05/18 09:47 Dose: 300 mg Bortezomib 2.6 mg/ (Miscellaneous Medication) 1.04 mls @ 0 mls/hr SC Q7D [facility] Last Admin: 05/04/18 17:14 Dose: 1.04 mls Labetalol HCl (Normodyne) 10 mg SLOW IVP Q4H PRN PRN Reason: SBP Greater Than 180 Last Admin: 04/24/18 20:58 Dose: 10 mg Lidocaine (Lidoderm 5% Patch) 1 patch TD DAILY [facility] Last Admin: 05/05/18 09:53 Dose: Not Given Remove Lidocaine (Patch) 0 each FS 2100 [facility] Last Admin: 05/04/18 21:25 Dose: Not Given Ondansetron HCl (Zofran Odt) 4 mg PO Q6H PRN PRN Reason: Nausea/Vomiting Pantoprazole Sodium (Protonix) 40 mg PO DAILY [facility] Last Admin: 05/05/18 09:47 Dose: 40 mg Sertraline HCl (Zoloft) 25 mg PO DAILY [facility] Last Admin: 05/05/18 09:49 Dose: 25 mg Sodium Chloride (Flush - Normal Saline) 10 ml IVF PRN PRN PRN Reason: Saline Flush Sucralfate (Carafate) 1 gm PO ACHS [facility] Last Admin: 05/05/18 09:48 Dose: 1 gm Tramadol HCl (Ultram) 100 mg PO Q6H PRN PRN Reason: Moderate to Severe Pain (6-10) Valacyclovir HCl (Valtrex) 500 mg PO QAM [facility] Last Admin: 05/05/18 09:48 Dose: 500 mg
[2018-05-05 11:50] VITALS: BMI 31.3
--- NOTE | 2018-05-05 16:20 | EKG ---
Test Reason : C/O CHEST PAIN Blood Pressure : / mmHG Vent. Rate : 110 BPM Atrial Rate : 110 BPM P-R Int : 120 ms QRS Dur : 078 ms QT Int : 338 ms P-R-T Axes : 057 050 074 degrees QTc Int : 457 ms Sinus tachycardia Nonspecific ST abnormality Abnormal ECG When compared with ECG of 21-APR-2018 22:43, (Unconfirmed) Fusion complexes are now Present Criteria for Septal infarct are no longer Present Confirmed by DR. Veronica APARICIO ([id number]) on 05/05/2018 4:20:15 PM Referred By: TANNER Confirmed By:DR. Veronica APARICIO
[2018-05-05] MEDS ORDERED: Naloxone HCl 0.4 mg/ml Vial ONE (17:27)
[2018-05-05] MEDS ORDERED: Sodium Chloride 0.9% 1,000 ML IV SCH (17:45)
[2018-05-05] MEDS ORDERED: Norepinephrine 8 MG/0.9% NS 250 ML IVPB SCH (17:45)
--- NOTE | 2018-05-05 18:02 | RAD ---
CHEST ONE VIEW 05/05/18 HISTORY: Dyspnea. Followup. COMPARISON: 04/30/18. FINDINGS: The cardiac silhouette is magnified by projection. Widespread reticulonodular diffuse interstitial pr ominence is stable compared to the previous study. Mediastinum is midline with left upper extremity P ICC. No lobar consolidation or evidence of pneumothorax. IMPRESSION: Widespread, diffuse reticulonodular interstitial prominence and other findings are stable. POS: [facility]
[2018-05-05 18:12] LABS: Hemoglobin 7.8 g/dL (12.0-16.0); INR-International Normal Ratio 1.6; Mean Corpuscular HGB CONC 34.1 g/dL (32.0-36.0); Mean Corpuscular Hemoglobin 29.5 pg (27.0-31.0); Mean Corpuscular Volume 86.5 fL (78.0-98.0); Mean Platelet Volume 15.6 fL (7.4-10.4); Platelet Count 11 thou/uL (130-400); Prothrombin Time 19.3 SEC (12.0-14.7); RBC Distribution Width 17.8 % (11.5-14.5); Red Blood Cell (RBC) Count 2.63 mill/uL (4.20-5.40)
[2018-05-05 18:13] LABS: PTT 45.4 SEC (22.9-36.1)
[2018-05-05 18:16] LABS: Anion Gap 22 mmol/L (10-20); BUN (Urea Nitrogen) 44 mg/dL (9.8-20.1); Calc. Creatinine Clearance 18 mL/min (70-130); Calcium 8.4 mg/dL (7.8-10.44); Carbon Dioxide 18 mmol/L (22-29); Chloride 100 mmol/L (98-107); Estimated GFR-MDRD 11; Glucose 116 mg/dL (70-105); Potassium 4.1 mmol/L (3.5-5.1); Sodium 136 mmol/L (136-145)
[2018-05-05 18:48] LABS: Anisocytosis SLIGHT = 6-15 cells (100X) (0-5/hpf); Band 7 % (5-11); Lymphocytes 11 % (21-51); MDiff Complete? YES; Monocytes 1 % (0-10); Myelocyte 1 % (0-0); Neutrophil 16 % (42-75); Nucleated RBC 3 % (0); PLT Morphology Comment Appears Decreased; Polychromasia SLIGHT = 2-3 cells (100X) (0-2/hpf); Reactive Lymphocytes 12 % (0-10); Schistocytes SLIGHT = 2-5 cells (100X) (0-1/hpf); Target Cells SLIGHT = 2-5 cells (100X) (0-1/hpf); Tear Drops SLIGHT = 2-5 cells (100X) (0-1/hpf); White Blood Cell (WBC) Count 40.6 thou/uL (4.8-10.8)
--- NOTE | 2018-05-05 19:34 | PDOC.EVN ---
Event Note - Event Note Event Note: Code dolores called for Low BP Pt seen and examined for primary day team during swing shift. Transferred to CCU meanwhile. case discussed with day team Dr Zamora and nephrology Dr. Carr care discussed w IMCU RN and CCU RN.Chart reviewed Pt stable now w improved BP. will start levophed prn and will give NS 500 ccc bolus. ordered 1 unit PRBC per day team MD orders. HD per nephrology ,likely tonight again labs reviewed. WBC up to >40,000.Platelet 11 w/o any bleed Cont Bipap as ordered by PCCM . Plan and prognosis discussed with pt again. She wants " to live" and would like to get everything done to save her life including Intubation and CPR if needed tonight. CCU RN updated. ACP meeting done for 17 minutes face to face.
--- NOTE | 2018-05-05 19:41 | ULT ---
VENOUS DUPLEX SONOGRAM BILATERAL LOWER EXTREMITY 05/05/18 HISTORY: Bilateral leg pain and edema. FINDINGS: There was incomplete compressibility at the right common femoral vein and greater saphenous junction. Flow was seen around the thrombus. Good color and spectral doppler flow were apparent at the left common femoral vein and greater saphen ous junction and throughout each femoral, deep femoral, popliteal, and posterior tibial vein. No othe r areas of clot were apparent. IMPRESSION: Focal nonocclusive thrombus right common femoral vein. Findings were relayed to the patient's nurse by the cutter machine tender at the time of the exam. POS: DENIS
[2018-05-05 19:45] VITALS: BP 102/40
[2018-05-06] MEDS: Sucralfate 1 GM TAB PO SCH ×3 (07:45→16:57)
[2018-05-06] MEDS: Lidocaine 5% Patch TD SCH (07:49)
[2018-05-06] MEDS ORDERED: Cefepime 1 GM in Sodium Chloride 0.9% 100 ML IVPB SCH (09:00)
--- NOTE | 2018-05-06 09:53 | PRG ---
DATE OF SERVICE: 05/06/2018 Thirty-five minutes critical care time. SUBJECTIVE: The patient had a difficult evening yesterday. She had to be moved to the CCU. She dev eloped hypotension and hypoxemia. Initially, I thought this was due to narcotic use. She was given Narcan and it did improve some. She is definitely more awake and alert this morning. She is still r equiring BiPAP with an FiO2 of 65%. PHYSICAL EXAMINATION: VITAL SIGNS: On exam, her temperature is 98.4, pulse 106, blood pressure 141/65, O2 saturation in th e mid 90s. A 24-hour intake 646, output minimal. Has not had dialysis since 05/03/2018. HEENT EXAM: Unremarkable. NECK: Without adenopathy or JVD. LUNGS: Coarse breath sounds. CARDIOVASCULAR: S1 and S2, slightly tachycardic. ABDOMEN: Soft, nontender. EXTREMITIES: No clubbing, cyanosis, or edema. LABORATORY DATA: White blood cell count yesterday was 40.6, hematocrit 22.7, platelet count 11. Sod ium 136, potassium 4.1, chloride 100, CO2 of 18, BUN 44, creatinine 4.8, glucose 116. Doppler of the right lower extremity demonstrated nonocclusive thrombus in the right femoral vein. Of note, she noel s a dialysis access catheter in the right groin. ASSESSMENT: 1. Multiple myeloma. 2. Acute on chronic renal failure. 3. Fluid overload. 4. Nonocclusive deep venous thrombosis, right groin. 5. Thrombocytopenia. 6. Anemia. 7. Possible pneumonia. PLAN: 1. CT pulmonary angiogram. The patient has renal failure and is not expected to recover renal funct ion. Therefore, I think we need to obtain a contrasted study to better figure out what is going on i n the lungs. If this is a large pulmonary embolism, then she will need a filter as anticoagulation i s contraindicated and her low platelets state. 2. Discontinue the Omnicef and start a more broad-spectrum antibiotic. 3. Stop the Valtrex. 4. Wean Levophed if possible. 5. Dialysis today.
--- NOTE | 2018-05-06 10:35 | CT ---
CT PULMONARY ANGIO CHEST INCLUDIGN 3D RENDERING:' HISTORY: A 58-year-old female with a history of left deep venous thrombosis with difficulty breathing. FINDINGS: The lottery sales clerk view demonstrates very extensive interstitial and reticulonodular parenchymal changes throu ghout both lungs showing definite worsening when compared to 05/05/18 chest x-ray. There are some bila teral pleural effusions, greater on the left side. Extensive old granuloma calcifications. There ma y well be some component of underlying chronic lung disease with some bilateral bullous changes. Sev eral borderline enlarged mediastinal lymph nodes in the pretracheal and paratracheal region up to 1.3 cm short axis. The central pulmonary arteries are free of thrombus. Some of the more peripheral pu lmonary arteries are somewhat less than optimally imaged because of decreased bolus concentration. S omewhat prominent hilar lymph nodes bilaterally. IMPRESSION: No convincing CT evidence for acute pulmonary embolism. Marked worsening in the interstitial and ret iculonodular parenchymal changes throughout both lungs when compared to the prior chest x-ray of . Small pleural effusions, larger on the left side. Borderline-size hilar lymph nodes bilaterally as well as some minimal adenopathy in the pretracheal and paratracheal regions. Small old granuloma calcifications. No evidence of pericardial effusion. Findings are certainly worrisome for worsenin g acute interstitial process including the interstitial edema and/or bilateral atypical interstitial pneumonia. POS: [facility]
[2018-05-06] MEDS ORDERED: Heparin 1,000 UNITS/ML VIAL ONE (11:11)
[2018-05-06 11:31] VITALS: TEMP 98.1
--- NOTE | 2018-05-06 12:40 | PDOC.PN ---
- Subjective Encounter Start Date: 05/06/18 Encounter Start Time: 10:15 Subjective: on bipap, responds to verbal stimuli -: getting HD now -: has sob, no chest pain - Objective MAR Reviewed: Yes Vital Signs & Weight: Vital Signs (12 hours) Temp Pulse Resp Pulse Ox 05/06/18 11:00 98.1 F 05/06/18 10:49 118 H 05/06/18 08:00 98.7 F 114 H 22 H 94 L 05/06/18 06:30 103 H 05/06/18 06:29 95 05/06/18 03:00 98.4 F 05/06/18 02:33 105 H Weight Admit Weight 199 lb Weight 200 lb 6.403 oz Most Recent Monitor Data Heart Rate from ECG 115 NIBP 127/57 NIBP BP-Mean 70 Respiration from ECG 29 SpO2 98 I&O: 05/05/18 05/06/18 05/07/18 06:59 06:59 06:59 Intake Total 700 646 115 Output Total 0 Balance 700 646 115 Result Diagrams: 05/05/18 17:53 05/05/18 17:53 Additional Labs: Accuchecks 05/05/18 17:27 POC Glucose 125 H Phys Exam - Physical Examination HEENT: PERRLA, sclera anicteric Neck: no JVD, supple Respiratory: no wheezing rales+ Cardiovascular: RRR, no significant murmur Gastrointestinal: soft, no distention, positive bowel sounds Musculoskeletal: pulses present, edema present Neurological: non-focal, moves all 4 limbs Dx/Plan (1) ESRD (end stage renal disease) on dialysis Code(s): N18.6 - END STAGE RENAL DISEASE; Z99.2 - DEPENDENCE ON RENAL DIALYSIS Status: Acute Comment: initiated on HD this admission (2) Acute respiratory failure with hypoxia Code(s): J96.01 - ACUTE RESPIRATORY FAILURE WITH HYPOXIA Status: Acute Comment: on bipap (3) Multiple myeloma Code(s): C90.00 - MULTIPLE MYELOMA NOT HAVING ACHIEVED REMISSION Status: Chronic Qualifiers: Multiple myeloma remission status: not in remission Qualified Code(s): C90.00 - Multiple myeloma not having achieved remission Comment: has progressive myeloma (4) Thrombocytopenia Code(s): D69.6 - THROMBOCYTOPENIA, UNSPECIFIED Status: Acute (5) HTN (hypertension) Code(s): I10 - ESSENTIAL (PRIMARY) HYPERTENSION Status: Chronic Qualifiers: Hypertension type: essential hypertension Qualified Code(s): I10 - Essential (primary) hypertension Comment: controlled (6) Sepsis Code(s): A41.9 - SEPSIS, UNSPECIFIED ORGANISM Status: Resolved Qualifiers: Sepsis type: sepsis due to unspecified organism Qualified Code(s): A41.9 - Sepsis, unspecified organism - Plan on levophed for pressure support -: may wean off after HD -: may wean bipap after HD if her spo2 remains stable -: poor prognosis -: on cefepime, nebs and velcade * . has nonocclusive thrombus in right CFV, no PE on CTA chest. Not a candidate for anticoagulation due to platelets of 11, PTT 45. Review of Systems - Medications/Allergies Allergies/Adverse Reactions: Allergies Allergy/AdvReac Type Severity Reaction Status Date / Time fentanyl Allergy Verified 04/03/18 22:00 Medications: Current Medications Acetaminophen (Tylenol) 650 mg PO Q4H PRN PRN Reason: Headache/Fever or Pain Albuterol/Ipratropium (Duoneb) 3 ml NEB Q4H PRN PRN Reason: SOB &/or Wheezing Last Admin: 05/01/18 00:36 Dose: 3 ml Bisacodyl (Dulcolax) 10 mg PO DAILYPRN PRN PRN Reason: Constipation Bortezomib 2.6 mg/ (Miscellaneous Medication) 1.04 mls @ 0 mls/hr SC Q7D [facility] Last Admin: 05/04/18 17:14 Dose: 1.04 mls Norepinephrine Bitartrate (Levophed) 250 mls @ 0 mls/hr IVPB INF [facility]; Protocol Last Admin: 05/05/18 21:42 Dose: 250 mls Cefepime HCl 1 gm/ Sodium (Chloride) 100 mls @ 200 mls/hr IVPB Q24HR [facility] Last Admin: 05/06/18 09:12 Dose: 100 mls Lidocaine (Lidoderm 5% Patch) 1 patch TD DAILY [facility] Last Admin: 05/06/18 07:49 Dose: Not Given Remove Lidocaine (Patch) 0 each FS 2100 [facility] Last Admin: 05/05/18 21:16 Dose: Not Given Ondansetron HCl (Zofran Odt) 4 mg PO Q6H PRN PRN Reason: Nausea/Vomiting Pantoprazole Sodium (Protonix) 40 mg PO DAILY [facility] Last Admin: 05/06/18 09:13 Dose: 40 mg Sertraline HCl (Zoloft) 25 mg PO DAILY [facility] Last Admin: 05/06/18 09:13 Dose: 25 mg Sodium Chloride (Flush - Normal Saline) 10 ml IVF PRN PRN PRN Reason: Saline Flush Sodium Chloride (Flush - Normal Saline) 10 ml IVF PRN PRN PRN Reason: Saline Flush Sucralfate (Carafate) 1 gm PO ACHS [facility] Last Admin: 05/06/18 11:32 Dose: Not Given
[2018-05-06] MEDS: Morphine 4 MG/ML VIAL IV PRN ×4 (13:11→18:27)
--- NOTE | 2018-05-06 14:38 | PRG ---
DATE OF SERVICE: 05/06/2018 SUBJECTIVE: This is a 58-year-old female being seen for end-stage renal disease due to acute tubular necrosis and due to multiple myeloma. The patient was started on dialysis for respiratory difficulty, but wanted to get off and does not want to do dialysis. OBJECTIVE: GENERAL: Patient is in moderate to severe distress. VITAL SIGNS: Pulse 100, breathing in the 20s and blood pressure was 90/60 on Levophed. GENERAL APPEARANCE AND MENTAL STATUS: Fair. HEAD/NECK: Normocephalic. Atraumatic. EYES: EOMI. No deformity. EARS: Clear. No ulcers. NOSE: Intact. No lesions. MOUTH: Clear. No discharge. THROAT: Clear. No exudate. LUNGS: Clear. No crackles. CARDIAC: S1, S2. No rub. ABDOMEN: Benign. BS+. GENITALIA/RECTUM: Crowe absent. BACK/EXTREMITIES: Edema 0+ Ulcer- NEUROLOGICAL: Alert and motor intact. SKIN: Rash- Bruise- LYMPHATICS: Edema- Ulcer- LABORATORY: Hemoglobin 7.8, potassium 4.1. ASSESSMENT AND RECOMMENDATIONS: 1. Stage 6 chronic kidney disease, on maintenance hemodialysis. We will stop dialysis per patient request. This was discussed in the presence of her and her brother that was present during the interview. 2. Anemia. 3. Multiple myeloma. 4. Acidosis. Overall, prognosis is poor. We will stop dialysis per patient request and sign off on this patient. Prognosis is extremely poor. MTDD
--- NOTE | 2018-05-07 18:41 | DIS ---
DATE OF : 05/06/2018 at 1906 hours PRIMARY CAUSE OF : Progressive multiple myeloma, sepsis, end-stage renal disease, initiated on dialysis this admission, acute respiratory failure with hypoxia, severe thrombocytopenia, sepsis, all of the above from past 19 days. BRIEF COURSE DURING HOSPITALIZATION: Patient initially came to ER with complaints of generalized wea kness. She was recently diagnosed with multiple myeloma and was on chemotherapy. The patient was on dexamethasone and was to start Velcade, Revlimid chemotherapy. She had severe thrombocytopenia on a rrival. Patient also carried a history of colon cancer with persistently elevated CEA levels and col ostomy. Essentially, her multiple myeloma was transfusion dependent and had bleeding history due to severe thrombocytopenia. The patient started to have volume overload with progressive worsening of r enal function with creatinine jumping up to 5.49. She was initiated on hemodialysis. The patient noel d severe deconditioning and never recovered completely to participate with physical therapy. On 10/2017, the patient went into respiratory failure and had to be placed on BiPAP and admitted to [facility]. Later, the patient also started to have hypotension and had to be placed on pressors. She was on b road spectrum IV antibiotics. She has received multiple blood products including 7 units of packed r ed blood cells and 6 packs of platelets during her stay here. Despite all this, progressive decondit ioning and worsening respiratory failure with hypotension and volume overload. The patient expressed her desire not to continue further aggressive treatment. She mentioned that she is tired and would like to go peacefully. In view of this, all active aggressive interventions were stopped. This was done on 05/06/2018 in the morning. The patient breathed her last at 1906. Her body will be released to family per hospital protocol.
== END 2018-05-06 21:58 | disposition expired | DRG 840 ==
LOC: ERS 19:47 → 2NO 23:06 → 2SE 04-19 14:49 → 2NO 04-19 14:55 → IMCU/EMU 05-01 02:38 → 2NO 05-04 19:41 → IMCU/EMU 05-05 17:26 → CCU 05-05 17:39
PROVIDERS: ADMIT Hospitalist; ATTEND Hospitalist
PROC: 30233R1 Transfusion of Nonautologous Platelets into Peripheral Vein, Percutaneous Approach (ICD-10-PCS; principal; 2018-04-16)
PROC: 30233N1 Transfusion of Nonautologous Red Blood Cells into Peripheral Vein, Percutaneous Approach (ICD-10-PCS; 2018-04-16)
PROC: 02HV33Z Insertion of Infusion Device into Superior Vena Cava, Percutaneous Approach (ICD-10-PCS; 2018-04-21)
PROC: 5A1D70Z Performance of Urinary Filtration, Intermittent, Less than 6 Hours Per Day (ICD-10-PCS; 2018-05-01)
PROC: 5A09357 Assistance with Respiratory Ventilation, Less than 24 Consecutive Hours, Continuous Positive Airway Pressure (ICD-10-PCS; 2018-05-01)
PROC: 3E033XZ Introduction of Vasopressor into Peripheral Vein, Percutaneous Approach (ICD-10-PCS; 2018-05-01)
DX: C90.00 Multiple myeloma not having achieved remission (principal); J96.01 Acute respiratory failure with hypoxia; N17.0 Acute kidney failure with tubular necrosis; N18.6 End stage renal disease; A41.9 Sepsis, unspecified organism; J18.9 Pneumonia, unspecified organism; D62 Acute posthemorrhagic anemia; E87.2 Acidosis; E87.1 Hypo-osmolality and hyponatremia; I47.2 Ventricular tachycardia; I12.0 Hypertensive chronic kidney disease with stage 5 chronic kidney disease or end stage renal disease; J81.1 Chronic pulmonary edema; I82.411 Acute embolism and thrombosis of right femoral vein; Z66 Do not resuscitate; Z51.5 Encounter for palliative care; D69.59 Other secondary thrombocytopenia; R04.0 Epistaxis; E86.0 Dehydration; D63.0 Anemia in neoplastic disease; E87.6 Hypokalemia; E88.09 Other disorders of plasma-protein metabolism, not elsewhere classified; N93.9 Abnormal uterine and vaginal bleeding, unspecified; F41.8 Other specified anxiety disorders; Z93.3 Colostomy status; F17.210 Nicotine dependence, cigarettes, uncomplicated; Z85.048 Personal history of other malignant neoplasm of rectum, rectosigmoid junction, and anus
CPT/HCPCS: 36415; 36416; 36430; 36569; 71045; 71275; 76770; 80048; 80053; 80069; 80202; 81001; 82570; 83735; 83880; 84145; 84156; 84439; 84443; 85014; 85018; 85025; 85610; 85730; 86850; 86900; 86901; 87086; 87340; 90471; 90670; 90935; 93005; 93010; 93306; 93970; 94640; 94660; 94760; 99406; A4216; C1751; C9113; G0009; G0257; G8978-GP-CL; G8978-GP-CM; G8979-GP-CI; G8979-GP-CK; G8987-GO-CL; G8987-GO-CM; G8988-GO-CI; G8988-GO-CJ; J0692; J1100; J1644; J1940; J2270; J2310; J2543; J3370; J7050; J7620; J8540; J9041; P9016; P9035